=== PATIENT | male | born 1940 | race Caucasian/White ===

== ENCOUNTER 2019-04-30 21:38 | Inpatient (IN) ==
[2019-04-30 22:04] LABS: BASO# 0.02 X1000 (0.0-0.2); BASO% 0.4 % (0.0-0.8); EOS% 2.1 % (0.0-10.0); HEMATOCRIT 39.1 % (42.0-52.0); HEMOGLOBIN 12.7 g/dL (14.0-18.0); IMM GRAN# 0.02 X1000 (0.0-0.04); IMM GRAN% 0.4 % (0.0-0.5); LYMPH# 1.16 X1000 (1.2-3.4); LYMPH% 24.6 % (20.5-51.1); MCH 29.3 PG (27-31); MCHC 32.5 g/dL (33-37); MCV 90.1 FL (81-99); MONO# 0.56 X1000 (0.11-0.59); MONO% 11.9 % (1.7-9.3); MPV 10.1 FL (7.4-10.4); NEUT# 2.86 X1000 (1.4-6.5); NEUT% 60.6 % (42.2-75.2); PLT 146 X1000 (130-400); RBC 4.34 XMIL (4.7-6.1); RDW 12.8 % (11.5-14.5); WBC 4.72 X1000 (4.8-10.8)
[2019-04-30] MEDS ORDERED: NS 1,000 ML IV ONE (22:22)
[2019-04-30] MEDS ORDERED: DILAUDID IV ONE ×2 (22:22→23:41)
[2019-04-30] MEDS ORDERED: ZOFRAN IV ONE (22:22)
[2019-04-30 22:23] LABS: AGAP 13; ALB/GLOB RATIO 1.3; ALBUMIN 3.4 g/dL (3.5-5.0); ALKALINE PHOSPHATASE 118 U/L (32-122); AMYLASE 94 U/L (20-200); BUN 9 mg/dL (8-22); CALCIUM 8.2 mg/dL (8.8-10.2); CHLORIDE 104 mmol/L (98-107); COSMO 279; ESTIMATED GFR > 60; GLUCOSE 123 mg/dL (70-104); GOT 47 U/L (10-34); GPT 87 U/L (10-44); LIPASE 51 U/L (13-60); POTASSIUM 3.7 mmol/L (3.5-5.1); SODIUM 140 mmol/L (136-145); TCO2 23 mmol/L (25-35)
--- NOTE | 2019-05-01 00:11 | PROVIDER DOCUMENTATION ---
This chart was entered by Gaye Verdin Scribe, acting as scribe for Tor Crook MD. HPI-Abdominal Pain/GI Problem - General Chief Complaint: Abdominal Pain Stated Complaint: GALL BLADDER ISSUES, VOMITING Time Seen by Provider: 04/30/19 22:05 Source: patient, family Allergies/Adverse Reactions: Patient Allergies Allergy/AdvReac Type Severity Reaction Status Date / Time No Known Allergies Allergy Verified 04/30/19 22:19 Home Medications: Home Medication List Medication Instructions Recorded Confirmed Last Taken Type Alprazolam [Xanax] 0.25 mg PO BID 06/09/12 04/30/19 06/12/12 History Omeprazole [Prilosec] 40 mg PO DAILY@0700 06/09/12 04/30/19 03/14/16 History LISINOpril [Prinivil] 20 mg PO DAILY 03/14/16 04/30/19 03/14/16 History Oxybutynin [Ditropan] 5 mg PO DAILY 03/14/16 04/30/19 03/14/16 History Simvastatin 20 mg PO QHS 03/14/16 04/30/19 03/14/16 History Ergocalciferol (Vitamin D2) 400 unit PO DAILY 03/15/16 04/30/19 Unknown History [Vitamin D] Amoxicillin 875 mg PO BID 04/30/19 04/30/19 Unknown History Metoprolol Tartrate 25 mg PO BID 04/30/19 04/30/19 Unknown History Sucralfate 1 gm PO AC + HS 04/30/19 04/30/19 Unknown History - History of Present Illness-ABD Nature of Presenting Problems: pt is a 79 yr old male presenting with severe RUQ, epigastric pain, nausea and vomiting, pt was discharged from [facility] today, pt dx with gall stones and pancreatitis 4 days ago. pt admits pain had improved prior to discharge today but after returning home pain worsened again. pt denies any other complains. Abdominal Pain Onset Location: reports: RUQ Pain Radiation: reports: epigastric, back Quality of Pain: reports: cramping, sharp, throbbing Severity in ED: reports: severe Onset/Duration: reports: this afternoon Timing: reports: changing over time, getting worse Activities at Onset: reports: light activity, rest Exposure to sick contacts?: No Modifying Factors: improves with: nothing Associated Symptoms: reports: nausea, vomiting. denies: back/neck pain, chest pain, constipation, diarrhea, fever/chills, genitourinary problems, shortness of breath Last BM: unsure Dark Stools Present?: reports: none noticed Rectal Bleeding: reports: none Rectal Pain: reports: none Bruising or Bleeding Gums?: No Similar Symptoms Previously?: Yes Recently seen or treated by another doctor?: Yes Review of Systems - Adult - REVIEW OF SYSTEMS - ADULT Constitutional: reports: fatique. denies: chills, fever Eyes: reports: no symptoms reported Ears, Nose, Mouth & Throat: reports: no symptoms reported Cardiovascular: denies: chest pain, palpitations, syncope Respiratory: denies: cough, shortness of breath Gastrointestinal: reports: abdominal pain, nausea, poor appetite, vomiting. denies: constipation, diarrhea Genitourinary: denies: dysuria, frequency, flank pain Musculoskeletal: denies: back pain, joint pain, neck pain Integumentary: reports: no symptoms reported Neurological: denies: dizziness/vertigo, headache/migraines Psychiatric: reports: no symptoms reported Endocrine: reports: no symptoms reported Hematologic/Lymphatic: reports: no symptoms reported Allergic/Immunologic: reports: no symptoms reported All Other Systems: Reviewed and Negative Past History - Adult - PAST MEDICAL HISTORY-ADULT Review of Records: reports: Old Records Reviewed, Nursing Assessment Review, Medications Reviewed, Social history reviewed & non-contributory. Major Childhood Illnesses: reports: denies history Cardiovascular: reports: HTN, hyperlipidemia Respiratory: reports: denies history Gastrointestinal: reports: GERD Obstetrical/Gynecological: reports: denies history Genitourinary: reports: denies history Musculoskeletal: reports: denies history Neurological: reports: denies history Endocrine/Immune: reports: denies history Other Conditions: reports: denies history - IMMUNIZATION STATUS Childhood Immunizations: See Nurse Assessment Flu Vaccine: See Nurse Assessment - FAMILY HISTORY Family History: reviewed, not pertinent - SOCIAL HISTORY Smoking: quit greater than 1 year Substance Use: denies Living Situation: family Physical Exam-General - PHYSICAL EXAM-ADULT Initial Vital Signs Reviewed: Yes - CONSTITUTIONAL General Appearance: alert, moderate distress - EYES Eyes: PERRL/EOMI - HEAD, EARS, NOSE, MOUTH & THROAT HENMT: normocephalic/atraumatic, other (dry oral mucosa) - NECK Neck: non-tender, full range of motion, supple, normal inspection - RESPIRATORY Respiratory: lungs clear, normal breath sounds - CARDIOVASCULAR Cardiovascular: normal peripheral pulses, regular rate, rhythm - GASTROINTESTINAL (ABDOMEN) Abdominal Exam: normal bowel sounds, soft, tenderness (RUQ, epigastric tenderness), Mario's sign - LYMPHATIC Lymphatic: no adenopathy - MUSCULOSKELETAL Back Exam: no CVA tenderness, no vertebral tenderness Extremity: normal range of motion, non-tender, normal inspection - SKIN Integumentary: normal color, warm/dry, pallor - NEUROLOGIC Neurologic: grossly normal, no motor/sensory deficits Progress - PLAN OF CARE/RESULTS Progress/Plan/Lab Results: Vital Signs - 8 hr 04/30/19 21:48 Temperature 97.6 F Pulse Rate 62 Respiratory Rate 18 Blood Pressure 160/65 O2 Sat by Pulse Oximetry 97 Orders Category Date Time Status Saline Loc DIRECTED Care 04/30/19 21:53 Active NPO Diet 04/30/19 21:53 Active AMYLASE [CHEM] Stat Lab 04/30/19 21:55 Received CBC WITH ELECTRONIC DIFF [HEME] Stat Lab 04/30/19 21:54 Ordered COMPREHENSIVE METABOLIC PANEL [CHEM] Stat Lab 04/30/19 21:55 Received LIPASE [CHEM] Stat Lab 04/30/19 21:55 Received URINALYSIS W/POSS RFLX CULT [URINALYSIS] Stat Lab 04/30/19 21:53 Uncollected Result Diagrams: 04/30/19 22:21 04/30/19 21:55 Departure - Departure Date of Disposition Decision: 05/01/19 Time of Disposition Decision: 00:11 DIAGNOSIS: Biliary colic Disposition: HOME 01 Certified Medical Emergency: Emergent Condition: Stable Referrals and Follow-Ups: Jake Dubois [Primary Care Provider] - - Critical Care Note This patient required my direct & personal management of CC.: No Attestation - Physician/ JAZMÍN Attestation Patient care was provided by Advanced Practice Provider:: No The physician spent face to face time with patient:: Yes Advanced Practice Provider documentation review:: Supervising physician onsite and consulted in the evaluation and care of this patient. The physician did have a face to face encounter with the patient. This chart was documented by the kristyn scribe, (Gaye Verdin Scribe) and accurately reflects the services I performed and decisions made by me, Tor Crook MD, as attested by the provider's signature.
[2019-05-01] MEDS ORDERED: ZOFRAN IV PRN (00:49)
[2019-05-01] MEDS ORDERED: NS 1,000 ML IV SCH (00:49)
[2019-05-01] MEDS: DILAUDID IV PRN ×4 (02:53→16:36)
--- NOTE | 2019-05-01 04:00 | HISTORY AND PHYSICAL ---
CHIEF COMPLAINT: Abdominal pain, nausea, vomiting. HISTORY OF PRESENT ILLNESS: This is a 79-year-old male who comes in having been discharged from [facility] around noon today. He was diagnosed with pancreatitis and gallstones. I believe he was treated for around four days. Stated that around 5:00 he started having nausea and vomiting and increased right upper quadrant pain that extends over into his epigastric area. Stated it was a cramping, sharp, throbbing pain that radiated to his back. Nothing made it better. He denied any other problems. A CT scan has been ordered here but has not been obtained. The ER provider did get reports from [facility] that did mention gallstones and pancreatitis but no mention of cholecystitis; however, he was discharged to home on amoxicillin. Will start the patient on Zosyn. He will be admitted for a surgical consultation, further evaluation and treatment. PAST MEDICAL HISTORY: Prostate cancer, status post prostatectomy, hypertension, hyperlipidemia, GERD, essential tremor. PREVIOUS SURGICAL HISTORY: Prostatectomy. SOCIAL HISTORY: No tobacco, alcohol or illicit drugs. He was a former smoker. ALLERGIES: No known drug allergies. HOME MEDICATIONS: Amoxicillin 875 mg p.o. b.i.d., Xanax 0.25 mg p.o. b.i.d., vitamin D2 400 units p.o. daily, lisinopril 20 mg p.o. daily, metoprolol 25 mg p.o. b.i.d., omeprazole 40 mg p.o. daily, Ditropan 5 mg p.o. daily, simvastatin 20 mg p.o. nightly, Carafate 1 gram AC and nightly. REVIEW OF SYSTEMS: Fourteen-point review of systems conducted with the patient. Pertinent positives listed above in the HPI. All other systems reviewed and found to be negative. PHYSICAL EXAMINATION: VITAL SIGNS: Temperature 97.6, pulse 62, respirations 18, blood pressure 160/65, oxygen saturation 100% on room air. GENERAL: A 79-year-old male lying in the ER stretcher. Still has complaint of pain but is in no acute distress. HEENT: Head is atraumatic, normocephalic. Pupils equal, round, reactive to light. Extraocular eye movement is intact. Sclera is anicteric. Conjunctiva is pink. Oral mucosa is dry. NECK: Supple. No JVD. No thyromegaly. Trachea is midline. No cervical lymphadenopathy. CARDIAC: S1, S2 appreciated. No murmurs, gallops, rubs. LUNGS: Clear to auscultation bilaterally. No rhonchi, wheezes, rales. Symmetric rise and fall with respirations. ABDOMEN: Soft, nondistended, tender epigastric and right upper quadrant. Positive Mario's sign. No rebound tenderness. Bowel sounds present all 4 quadrants, normoactive. No pulsatile mass. No organomegaly. EXTREMITIES: No clubbing, cyanosis or edema. Two-plus pedal pulse bilaterally. GENITOURINARY: No bladder distention. Patient voids. Otherwise deferred. NEUROLOGICAL: Alert and oriented times 3. Cranial nerves 2 through 12 grossly intact. DIAGNOSTIC DATA: CT scan of the abdomen is pending. LABORATORY DATA: WBC 4.72. Hemoglobin 12.7. Hematocrit 39.1. Platelet count 146. Sodium 140. Potassium 3.7. Chloride 104. Carbon dioxide 23. BUN 9. Creatinine 1. Glucose 123. Total bilirubin is 1.20. AST 47. ALT 87. Amylase 94. Lipase 51. ASSESSMENT AND PLAN: 1. Cholelithiasis with questionable cholecystitis. Will consult Surgery. Hold patient NPO except for medicines. Will start patient on Zosyn since he was sent home with antibiotics. These can be stopped pending follow-up with CT scan tomorrow by primary team and Surgery. 2. Hypertension. Continue home medications. 3. Hyperlipidemia. Continue home medications. 4. Nausea, vomiting and abdominal pain. This is secondary to number 1. Will give Zofran and Dilaudid. Further recommendations per patient clinical course. Dictated by ASHLEY Silva for Kali Aquino MD cc: ASHLEY Silva MD
[2019-05-01] MEDS: ZOSYN 3.375 GM in NS 50 ML IV SCH ×4 (04:34→20:21)
[2019-05-01] MEDS: PRILOSEC PO SCH (06:15)
[2019-05-01] MEDS: CARAFATE PO SCH ×4 (06:15→20:21)
[2019-05-01 06:32] LABS: URINE SOURCE CLEAN CATCH
[2019-05-01 06:33] LABS: UR EPITHELIAL CELLS <10 /HPF (<10); URINE BACTERIA NEGATIVE /HPF; URINE RBC <10 /HPF (<10); URINE WBC <10 /HPF (<10)
[2019-05-01 06:35] LABS: BILIRUBIN URINE NEGATIVE (NEGATIVE); BLOOD URINE NEGATIVE (NEGATIVE); COLOR YELLOW; GLUCOSE URINE NEGATIVE (NEGATIVE); KETONE URINE 60 mg/dL (NEGATIVE); LEUKOCYTES URINE NEGATIVE (NEGATIVE); NITRITE URINE NEGATIVE (NEGATIVE); PH URINE 5.5; PROTEIN URINE TRACE mg/dL (NEGATIVE); SP GRAVITY URINE 1.021; TURBIDITY URINE CLEAR (CLEAR); UROBILINOGEN URINE NORMAL (NORMAL)
[2019-05-01] MEDS: VITAMIN D PO SCH (08:53)
[2019-05-01] MEDS: LOPRESSOR PO SCH ×2 (08:53→20:21)
[2019-05-01] MEDS: XANAX PO SCH ×2 (08:53→20:21)
[2019-05-01] MEDS: DITROPAN PO SCH (08:53)
[2019-05-01] MEDS ORDERED: PRINIVIL PO SCH (09:00)
--- NOTE | 2019-05-01 10:42 | GENERAL SURGERY CONSULTATION ---
DATE: 05/01/2019 REQUESTING PHYSICIAN: Hospitalist. REASON FOR CONSULTATION: Consult is concerning cholecystitis. HISTORY OF PRESENT ILLNESS: A 79-year-old gentleman who was initially at [facility] and treated with cholecystitis and possible pancreatitis. He had been treated at [facility] for several days and was discharged. He came here with continued pain. He has been admitted. He is still reporting pain. He was evaluated, and had a CT scan and an ultrasound which I cannot view the images but the report of the ultrasound shows cholelithiasis with thickened gallbladder wall, consistent with cholecystitis. A CT scan showed possible pancreatitis and inflammatory stranding around the second portion of the duodenum with possible cholecystitis. He has been readmitted over here and started on IV antibiotics. He is still complaining of pain with epigastric and right upper quadrant pain but is feeling a little bit better. PAST MEDICAL HISTORY: Includes: 1. Prostate cancer. 2. Hypertension. 3. Hyperlipidemia. 4. Gastroesophageal reflux. 5. Essential tremor. PAST SURGICAL HISTORY: Includes open prostatectomy. ALLERGIES: None. MEDICATIONS: Home medications reviewed. Current medications reviewed. He is on antibiotics. SOCIAL HISTORY: No alcohol, tobacco, or illicit drugs. Former smoker. FAMILY HISTORY: Reviewed with patient and noncontributory. REVIEW OF SYSTEMS: A full 14 systems were reviewed and are negative except as specified in the HPI. PHYSICAL EXAMINATION: Vital Signs: The patient is currently afebrile. Vital signs are stable. General Examination: No acute distress. male, looks stated age. HEENT: Normocephalic, atraumatic. Pupils equal, round, reactive to light. Mucous membranes moist. Oropharynx benign. Neck: Supple. Trachea midline. Cardiovascular: Regular rate and rhythm. Lungs: Grossly clear. Abdomen: Soft. Some tenderness in the epigastric and right upper quadrant pain. No peritoneal signs. Extremities: Moves all extremities. Neurologic: Grossly intact but he does have an essential tremor. Skin: No signs of jaundice. Vascular: All extremities perfused. LABORATORY: White blood count is 4, hematocrit is 39. Bilirubin is 1.2. AST and ALT are slightly elevated. Alkaline phosphatase is normal. Amylase and lipase are normal. [facility]. ASSESSMENT AND PLAN: A 79-year-old gentleman with possible cholecystitis. Possible cholecystitis. At this time, discussed with the patient possible cholecystectomy in the morning. Discussed with him the risks, benefits, and alternatives to the procedure with risks including but not limited to bleeding, infection, risk of anesthesia, risk of common bile duct injury, and bile leak. We will keep him on antibiotics and plan for surgical intervention tomorrow. If he does not seem to have improvement with this, he may need an esophagogastroduodenoscopy. cc: Tye Fernando MD
[2019-05-01] MEDS ORDERED: TYLENOL PO PRN (16:18)
[2019-05-01] MEDS ORDERED: OFIRMEV 1000 MG/ISOTONIC SOLN 1,000 MG/100 ML BOTTLE IV PRN (17:29)
--- NOTE | 2019-05-01 17:54 | Diag Imaging Result Doc PS360 ---
EXAM: CHEST-PORTABLE - 05/01/2019 HISTORY: SOB TECHNIQUE: Portable chest COMPARISON: 03/14/2016 FINDINGS: Heart size is within normal limits. There is apparent mild infiltrate or edema at the left upper lobe. The right lung appears essentially clear. There is an apparent small left pleural effusion. There is no evidence of pneumothorax. IMPRESSION: Mild left upper lobe infiltrate or edema. Small left pleural effusion. Electronically signed by Jonh Marshall 05/01/2019 5:51 PM
--- NOTE | 2019-05-01 18:40 | Diag Imaging Result Doc PS360 ---
EXAM: CT ABD/PELVIS W/IV CONT ONLY - 05/01/2019 HISTORY: acute abdomen TECHNIQUE: CT abdomen/pelvis with intravenous contrast COMPARISON: 04/27/[address] abdomen/pelvis from [facility] FINDINGS: There has been development of bilateral pleural effusions with adjacent dependent atelectasis. There are small gallstones in the gallbladder neck similar to prior. The gallbladder is moderately distended is more distended compared to prior. The gallbladder shelby appear mildly thickened. There is a small amount of pericholecystic fluid. There is a small amount of free fluid adjacent to the inferior right lobe of liver. The possibility of acute cholecystitis cannot be excluded. The pancreas is atrophic. There is no pancreatic mass or inflammation identified. There is no liver or splenic lesion identified. The bilateral kidneys enhance homogeneously. There is no hydronephrosis. There is no evidence of adrenal mass. There are no substantial enlarged lymph nodes identified. There is an apparent diverticulum arising at the descending duodenum similar to prior. There is no discrete inflammation identified which appears to arise at the duodenal diverticulum. There is no evidence of bowel obstruction. There is mild colonic diverticulosis. There is no indication of diverticulitis. There is no free air or abscess identified. There is a small amount of free fluid in the pelvis. There has been prior prostatectomy. IMPRESSION: Gallstones in gallbladder neck, moderately distended gallbladder, and small amount of pericholecystic fluid. The possibility of acute cholecystitis cannot be excluded. Diverticulum arising at the descending duodenum. No discrete associated diverticulitis. Small amount of free fluid in abdomen and pelvis. No evidence of free air. Bilateral pleural effusions. This exam was performed using automated exposure control, adjustment of mA or kV according to patient size, and/or use of iterative reconstruction technique. Electronically signed by Jonh Marshall 05/01/2019 6:37 PM
[2019-05-01 19:05] LABS: URINE SOURCE CLEAN CATCH
--- NOTE | 2019-05-01 19:14 | PROGRESS NOTE ---
DATE: 05/01/2019 SUBJECTIVE: Today Mr. Buchanan was actually shaking. Early on, I was called to be notified that his temperature was high of 100.4. When I came to evaluate him, he said was doing fair, but he was very cold. He was under multiple blankets. was at the bedside. OBJECTIVE: Vital signs: Blood pressure 144/69, pulse of 79, respirations 16, temperature is 100.4 degrees. General: Mr. Buchanan is a 79-year-old gentleman. He was in bed. HEENT: Mucosa is pink and moist. Anicteric. Acyanotic. Neck: Supple. Chest: Good air entry bilateral, seems to have some mild end expiratory wheezing bilateral. Cardiovascular: Regular rate and rhythm. Abdomen: Soft, remarkably tender in the right upper quadrant with some guarding, but no rebound. Bowel sounds present. Extremities: No pedal edema. IRONER: Patient is awake, alert, and oriented. LABORATORY DATA: None for this morning. ASSESSMENT: 1. Presumably acute cholecystitis. 2. Acute pancreatitis due to gallbladder disease. 3. Fever with obvious chills concerning for bacteremia. We will get blood cultures done stat. We will also notify surgery. 4. Biliary colic. cc: Eder Ramos MD
[2019-05-01 19:24] LABS: BLOOD URINE NEGATIVE (NEGATIVE); COLOR YELLOW; GLUCOSE URINE NEGATIVE (NEGATIVE); KETONE URINE TRACE mg/dL (NEGATIVE); LEUKOCYTES URINE NEGATIVE (NEGATIVE); NITRITE URINE NEGATIVE (NEGATIVE); TURBIDITY URINE CLEAR (CLEAR); UROBILINOGEN URINE NORMAL (NORMAL)
[2019-05-01 19:38] LABS: BILIRUBIN URINE NEGATIVE (NEGATIVE); PROTEIN URINE 30 mg/dL (NEGATIVE); UR EPITHELIAL CELLS <10 /HPF (<10); URINE BACTERIA NEGATIVE /HPF; URINE WBC <10 /HPF (<10)
[2019-05-01 19:43] LABS: SP GRAVITY URINE 1.025
[2019-05-01] MEDS: ZOCOR PO SCH (20:21)
[2019-05-01 20:57] LABS: INR 1.27; PROTIME 16.2 Seconds (11.0-16.0)
[2019-05-01 20:58] LABS: EOS# 0.01 X1000 (0.0-0.7); EOS% 0.6 % (0.0-10.0); HEMATOCRIT 38.1 % (42.0-52.0); HEMOGLOBIN 12.4 g/dL (14.0-18.0); IMM GRAN# 0.05 X1000 (0.0-0.04); IMM GRAN% 3.2 % (0.0-0.5); LYMPH# 0.11 X1000 (1.2-3.4); LYMPH% 7.1 % (20.5-51.1); MCH 29.7 PG (27-31); MCHC 32.5 g/dL (33-37); MCV 91.1 FL (81-99); MONO# 0.02 X1000 (0.11-0.59); MONO% 1.3 % (1.7-9.3); MPV 10.1 FL (7.4-10.4); NEUT# 1.37 X1000 (1.4-6.5); NEUT% 87.8 % (42.2-75.2); PLT 95 X1000 (130-400); PTT 28.8 Seconds (22.3-41.8); RBC 4.18 XMIL (4.7-6.1); WBC 1.56 X1000 (4.8-10.8)
[2019-05-01 21:13] LABS: BANDS 20 % (0-1); LYMPHS 2 % (21-51); SEGS 78 % (42-75)
[2019-05-01 21:15] LABS: C REACTIVE PROT QUANT 122.15 mg/L (0.00-5.00)
[2019-05-01] MEDS ORDERED: VANCOMYCIN IV PER PHARMACY MISC SCH (21:30)
[2019-05-01] MEDS ORDERED: NS 1,000 ML IV ONE ×2 (21:32→21:37)
[2019-05-01 21:41] LABS: AGAP 16; ALB/GLOB RATIO 1.4; ALBUMIN 3.1 g/dL (3.5-5.0); ALKALINE PHOSPHATASE 137 U/L (32-122); BUN 12 mg/dL (8-22); CHLORIDE 101 mmol/L (98-107); COSMO 274; ESTIMATED GFR > 60; GLUCOSE 102 mg/dL (70-104); GOT 63 U/L (10-34); GPT 86 U/L (10-44); POTASSIUM 3.6 mmol/L (3.5-5.1); SODIUM 137 mmol/L (136-145); TCO2 20 mmol/L (25-35); TOTAL BILIRUBIN 3.85 mg/dL (0.20-1.00); TOTAL PROTEIN 5.3 g/dL (6.3-8.3)
[2019-05-01 21:58] LABS: AGAP 16; BUN 12 mg/dL (8-22); CHLORIDE 101 mmol/L (98-107); COSMO 275; ESTIMATED GFR > 60; GLUCOSE 94 mg/dL (70-104); POTASSIUM 3.6 mmol/L (3.5-5.1); SODIUM 138 mmol/L (136-145); TCO2 21 mmol/L (25-35)
[2019-05-01] MEDS ORDERED: VANCOMYCIN 1,700 MG in NS 250 ML IV ONE (23:00)
--- NOTE | 2019-05-02 00:09 | EKG Report ---
Test Performed on : 05/01/2019 10:35:44 PM Test Reason : elevated trops Blood Pressure : / mmHG Vent. Rate : 110 BPM Atrial Rate : 110 BPM P-R Int : 130 ms QRS Dur : 070 ms QT Int : 344 ms P-R-T Axes : 044 -18 048 degrees QTc Int : 465 ms Sinus tachycardia. Septal infarct , age undetermined Abnormal ECG When compared with ECG of 15-MAR-2016 17:10, Septal infarct is now present Non-specific change in ST segment in Anterior leads Nonspecific T wave abnormality now evident in Anterior leads Confirmed by Manpreet MITCHELL, Rachid Napoles ([id number]) on 05/03/2019 10:19:16 AM
[2019-05-02] MEDS ORDERED: LEVOPHED 8 MG in D5 1/2 NS 250 ML IV SCH (02:44)
[2019-05-02 03:08] LABS: BASO# 0.01 X1000 (0.0-0.2); BASO% 0.1 % (0.0-0.8); EOS# 0.02 X1000 (0.0-0.7); EOS% 0.2 % (0.0-10.0); HEMATOCRIT 35.3 % (42.0-52.0); IMM GRAN# 0.98 X1000 (0.0-0.04); LYMPH# 0.22 X1000 (1.2-3.4); LYMPH% 2.2 % (20.5-51.1); MCH 28.7 PG (27-31); MCHC 31.2 g/dL (33-37); MCV 92.2 FL (81-99); MONO# 0.29 X1000 (0.11-0.59); MPV 10.4 FL (7.4-10.4); NEUT# 8.26 X1000 (1.4-6.5); NEUT% 84.5 % (42.2-75.2); PLT 87 X1000 (130-400); RBC 3.83 XMIL (4.7-6.1); RDW 13.1 % (11.5-14.5); WBC 9.78 X1000 (4.8-10.8)
[2019-05-02] MEDS: ZOSYN 3.375 GM in NS 50 ML IV SCH (03:18)
[2019-05-02] MEDS: DILAUDID IV PRN ×4 (03:22→21:57)
[2019-05-02 03:35] LABS: INR 1.4; PROTIME 17.4 Seconds (11.0-16.0)
[2019-05-02 03:36] LABS: PTT 32.3 Seconds (22.3-41.8)
[2019-05-02 03:39] LABS: ALB/GLOB RATIO 0.9; ALBUMIN 2.3 g/dL (3.5-5.0); CALCIUM 7.5 mg/dL (8.8-10.2); CREATININE 1.2 mg/dL (0.7-1.2); POTASSIUM 3.4 mmol/L (3.5-5.1); TOTAL BILIRUBIN 3.93 mg/dL (0.20-1.00)
--- NOTE | 2019-05-02 07:03 | Diag Imaging Result Doc PS360 ---
EXAM: CT ANGIOGRM PULMONARY ARTERIES 05/01/2019 HISTORY: rule out PE - verbal order changed per Jake Martínez to CTA PULM TECHNIQUE: This exam was performed using automated exposure control, adjustment of mA or kV according to patient size, and/or use of iterative reconstruction technique. COMMENT: 3-D MIPS were performed. The current study is compared with the previous noncontrast study of 03/23/2016. There is some motion artifact. There are no filling defects in the pulmonary arteries. The aorta is not distended and there is no evidence of dissection. There are some coronary calcifications. There are bilateral pleural effusions. Changes in the abdomen including acute cholecystitis have been previously discussed on the abdominal study of this date. There is no evidence of significant adenopathy. There is some increased interstitial opacity particularly in the right upper lobe which was not present at the time the previous study. There are patchy groundglass opacities in the left upper lobe and there is some compressive atelectasis in the lower lobes bilaterally. None of these findings were present previously. IMPRESSION: Bilateral pleural effusions. Pulmonary edema and/or pneumonia. Electronically signed by Saad Cerda 05/02/2019 7:01 AM
[2019-05-02] MEDS ORDERED: NS 1,000 ML ONE (07:13)
--- NOTE | 2019-05-02 07:17 | Diag Imaging Result Doc PS360 ---
EXAM: CHEST-PORTABLE INDICATION: dyspnea TECHNIQUE: One view COMPARISON: 05/01/2019 FINDINGS: Bilateral increased interstitial markings suggesting edema as well as pulmonary venous congestion are stable to marginally worse. No new consolidation is identified. Cardiac silhouette is stable. IMPRESSION: Stable to marginal worsening of pulmonary edema. Electronically signed by Gucci Johnson 05/02/2019 7:15 AM
[2019-05-02] MEDS ORDERED: MERREM 1 GM in NS 50 ML IV SCH (08:30)
[2019-05-02] MEDS: CARAFATE PO SCH ×4 (08:36→21:55)
[2019-05-02] MEDS: PRILOSEC PO SCH (08:37)
--- NOTE | 2019-05-02 08:41 | EKG Report ---
Test Performed on : 05/02/2019 07:31:29 AM Test Reason : preop/CAD Blood Pressure : / mmHG Vent. Rate : 092 BPM Atrial Rate : 092 BPM P-R Int : 142 ms QRS Dur : 066 ms QT Int : 368 ms P-R-T Axes : 041 -11 009 degrees QTc Int : 455 ms Normal sinus rhythm. Inferior infarct , age undetermined Abnormal ECG No previous ECGs available Confirmed by Manpreet MITCHELL, Rachid Napoles ([id number]) on 05/03/2019 10:19:45 AM
--- NOTE | 2019-05-02 08:46 | EKG Report ---
Test Performed on : 05/02/2019 07:32:09 AM Test Reason : REPEAT Blood Pressure : / mmHG Vent. Rate : 091 BPM Atrial Rate : 091 BPM P-R Int : 128 ms QRS Dur : 076 ms QT Int : 388 ms P-R-T Axes : 035 -08 044 degrees QTc Int : 477 ms Sinus rhythm. with premature supraventricular complexes. Otherwise normal ECG When compared with ECG of 02-MAY-2019 07:31, (Unconfirmed) premature supraventricular complexes. are now present Confirmed by Manpreet MITCHELL, Rachid Napoles ([id number]) on 05/03/2019 10:19:47 AM
[2019-05-02] MEDS: DITROPAN PO SCH (09:12)
[2019-05-02] MEDS: VITAMIN D PO SCH (09:12)
[2019-05-02] MEDS: XANAX PO SCH ×2 (09:13→21:56)
[2019-05-02 10:18] LABS: CK INDEX 7.3 (0.0-2.5); CK-MB 24.32 ng/mL (0.0-5.0)
[2019-05-02] MEDS: LOPRESSOR PO SCH ×2 (10:57→21:55)
[2019-05-02 11:36] LABS: URINE SOURCE CATH
[2019-05-02 11:40] LABS: BILIRUBIN URINE MODERATE (NEGATIVE); BLOOD URINE TRACE (NEGATIVE); COLOR YELLOW; GLUCOSE URINE NEGATIVE (NEGATIVE); KETONE URINE TRACE mg/dL (NEGATIVE); LEUKOCYTES URINE NEGATIVE (NEGATIVE); NITRITE URINE NEGATIVE (NEGATIVE); PH URINE 6.5; PROTEIN URINE 50 mg/dL (NEGATIVE); TURBIDITY URINE CLEAR (CLEAR); UROBILINOGEN URINE 2 mg/dL (NORMAL)
[2019-05-02 11:52] LABS: UR EPITHELIAL CELLS <10 /HPF (<10); URINE BACTERIA NEGATIVE /HPF; URINE RBC <10 /HPF (<10); URINE WBC <10 /HPF (<10)
[2019-05-02 11:53] LABS: URINE YEAST NONE SEEN
[2019-05-02 12:03] LABS: SP GRAVITY URINE 1.015
--- NOTE | 2019-05-02 12:38 | GENERAL SURGERY PROGRESS NOTE ---
DATE: 05/02/2019 SUBJECTIVE: The patient had a rough evening. He had issues with chills and a fever, and was brought down to the ICU. He had a repeat CT scan of his abdomen that showed the possibility of acute cholecystitis. The bowel itself appeared to be okay. He still had issues with blood pressure, and also with his troponin going up. OBJECTIVE: Vital Signs: The patient's current temperature is 99.6 degrees, pulse 108, blood pressure 99/62, O2 saturation 93%. General: Alert and interactive, male, looks stated age. HEENT: Normocephalic, atraumatic. Pupils equal, round, reactive to light. Mucous membranes moist. Oropharynx benign. Neck: Supple. Trachea midline. Cardiovascular: Some mild tachycardia. Lungs: Grossly clear. Abdomen: Soft. Some discomfort, right upper quadrant/epigastric, but no peritoneal signs. Extremities: Moves all extremities. Neurologic: Essential tremor noted. Vascular: All extremities perfused. IMAGING AND LABORATORY DATA: White blood count 9 (it was, at one point, 1), hematocrit 35, platelet count 87,000. INR 1.40. Bilirubin is 3.93, AST 183, ALT 148, alkaline phosphatase 96. Last troponin 0.718. Lactic acid 2.8. CT scan of the abdomen reviewed, and radiology report reviewed. CT angiogram of the chest images reviewed, but official report pending. ASSESSMENT AND PLAN: A 79-year-old gentleman with abdominal pain and decline in overall clinical status. 1. Decline in overall clinical status. At this time, he has had a decrease in his blood pressures, heart rate has gone up, and his troponin has gone up. He does have an increase in his lactic acid, although it has trended down since it was initially elevated. His labs seem to suggest a hepatic injury versus more so than a cholestatic pattern with his bilirubin, AST, and ALT being elevated, but his alkaline phosphatase being normal. I would like to see what the hospitalists think about his overall clinical status prior to any kind of surgical intervention. Would like to get Cardiology's input, and we await the results of the CT angiogram. 2. Cholecystitis. At this time, I do have him on the schedule for this afternoon for a cholecystectomy. He is on antibiotics, but at this point, will put it on hold until I can discuss further with the hospitalist this morning. cc: Tye Fernando MD
[2019-05-02] MEDS ORDERED: XYLOCAINE-MPF 2% ONE (12:58)
[2019-05-02] MEDS ORDERED: AMIDATE ONE (12:58)
[2019-05-02] MEDS ORDERED: QUELICIN (DOSE) ONE (13:05)
--- NOTE | 2019-05-02 13:11 | PROGRESS NOTE ---
DATE: 05/02/2019 SUBJECTIVE: This morning Mr. Buchanan is seen in the ICU. He was apparently transferred from the floor early this morning because he was extremely hypotensive and septic. The , a daughter, and a [id number] were all at the bedside at the time of the encounter. A granddaughter was also there. Mr. Buchanan, himself, thinks that he is doing well, but he is extremely drowsy and lethargic. He continues to have abdominal pain. OBJECTIVE: Vital Signs: Blood pressure is 94/56, pulse of 107, respirations 28, temperature 98.1 degrees, patient is saturating 96%. General: Mr. Buchanan is a 79-year-old gentleman. He is in bed. He does not seems to be in any cardiopulmonary distress. HEENT: Mucosa is pink and slightly dry. Anicteric. Acyanotic. Neck: Supple. Chest: Air entry is bilaterally reduced with a few crackles in the posterior lung christine. Cardiovascular: Tachycardic, but no murmurs and no rubs. Gastrointestinal: The abdomen is soft, distended. There is tenderness in the right upper quadrant with guarding. No rebound. Bowel sounds present. Extremities: No pedal edema. Central Nervous System: Patient is lethargic, but easily arousable. Follows basic commands. He seems to be hallucinating as well. LABORATORY DATA: WBC is 9.78, hemoglobin is 11, platelet count of 87,000. Chemistry is also reviewed. LFTs seems to be trending up. Troponin is 1036. C-reactive protein is remarkably elevated. A chest x-ray this morning shows marginal worsening of pulmonary edema. ASSESSMENT: 1. Septic shock associated with gram-negative christopher bacteremia. We are still pending the identification and sensitivity. Also complicated with altered mental status, transaminitis, and type 2 myocardial infarction. 2. Acute cholecystitis. We think this is the source of the gram-negative christopher bacteremia. The patient is currently on antibiotics. Infectious Disease has been consulted, and Surgery is pending final recommendations for possible gallbladder removal today. 3. Troponin elevation. I have just spoken with Dr. Cage. He thinks the bedside echo EF is pretty normal and there was not any evidence of wall motion abnormality. From his standpoint, he thinks the patient should be okay to go for surgery, and he thinks that this is a demand mismatch type 2 myocardial infarction. 4. Pulmonary edema, most likely due to fluid due to fluid resuscitation. We will continue to keep an eye on this. The patient will continue needing fluid resuscitation. I think if it comes to the point where this is compromising his respiratory status, he will be intubated. SUMMARY AND PLAN: In general, I think Mr. Buchanan is critically sick. He is septic with gram- negative christopher bacteremia, presumably from the from the gallbladder infection associated with multi- organ dysfunction. He has done a bedside echocardiogram, and Dr. Cage tells me that the EF was fine and that he thinks the troponin elevation is all due to the demand mismatch. EKG is unremarkable for any ST- or T-waves abnormalities. We recommend surgery to proceed, and I have explained the risks to the family members, and they are willing and okay with surgery to proceed as well. Mr. Buchanan himself is aware, and he is also okay for surgery to proceed. cc: Eder Ramos MD critical time 45 minutes [facility]
[2019-05-02] MEDS ORDERED: NORCURON ONE ×2 (13:25→17:23)
[2019-05-02] MEDS ORDERED: SODIUM CHLORIDE 0.9% 10 ML ONE (13:25)
[2019-05-02] MEDS ORDERED: ALBUMIN 25% ONE (13:30)
[2019-05-02] MEDS ORDERED: BRIDION ONE (13:43)
[2019-05-02] MEDS ORDERED: SENSORCAINE-MPF 0.5%/EPI 1:200,000 ONE (13:51)
[2019-05-02] MEDS ORDERED: LR 1,000 ML ONE (13:51)
[2019-05-02] MEDS ORDERED: KETAMINE ONE (14:41)
[2019-05-02] MEDS ORDERED: DECADRON ONE (14:51)
[2019-05-02] MEDS ORDERED: VERSED ONE (15:02)
[2019-05-02] MEDS ORDERED: RECOTHROM ONE (15:10)
[2019-05-02] MEDS: SODIUM CHLORIDE 0.9% ONE ×2 (16:05→17:26)
--- NOTE | 2019-05-02 16:06 | CARDIOLOGY CONSULTATION ---
DATE: 05/02/2019 REQUESTING PHYSICIAN: Hospitalist service and Dr. Fernando, surgeon. REASON FOR CONSULTATION: Cardiac evaluation. CHIEF COMPLAINT: Abdominal pain, weakness, possibly sepsis. Vomiting. HISTORY: Mr. Buchanan presented to the emergency room on April 30 at about 10 p.m. complaining of recurrent epigastric pain, right upper quadrant pain, nausea, vomiting. The patient apparently had been admitted to the [facility] and they diagnosed cholecystitis with pancreatitis. The patient at the time of presentation showed a proBNP level of 9331 pg/mL. His AST, ALT have gone up from 47 and 87 to 183 and 148. His bilirubin also has gone up from 1.[address] scan of the abdomen indicates gallstones in the gallbladder neck, moderately distended gallbladder and a small amount of pericholecystic fluid. The patient is very weak. He denies having chest pains as such. In addition, his CT shows the presence of bilateral pleural effusion with adjacent dependent atelectasis. The patient's EKG done at the time of initial encounter at 2235 hours May 01 shows sinus tachycardia with a left anterior fascicular block and question of septal infarct. Subsequent EKG done at 7:32 a.m. today shows sinus rhythm, rate 91, left anterior fascicular block. There is no evidence of a scar. A bedside echocardiogram has been done under my supervision and it shows preservation of the left ventricular ejection fraction probably at the lower limits of normal 55% without clear-cut wall motion abnormality. PAST MEDICAL HISTORY: positive for moderate coronary artery disease. I have seen Mr. Buchanan at my office the last time on 11/17/2018. At that time, he appeared to be clinically stable. He had no specific complaints. He had gained some weight. He has a history of hypertension. Back in April 02, we did a CT of the coronary arteries that showed moderate coronary disease without any critical stenosis. He has a history of essential tremor, hyperlipidemia which is being treated. He has had also a remote diagnosis of lupus erythematosus. PAST SURGICAL HISTORY: Positive back surgery twice and eye surgery. SOCIAL HISTORY: He is . He is retired. He has grown-up children. FAMILY HISTORY: Positive for father having sudden . Brother with stents. A sister with coronary heart surgery. HOME MEDICATIONS: At the time of this admission included: 1. Xanax 0.5 mg twice a day. 2. Amoxicillin 875 twice a day. 3. Vitamin D 2 400 units daily. 4. Lisinopril 10 mg daily. 5. Metoprolol 25 mg twice a day. 6. Omeprazole 40 mg daily. 7. Ditropan 5 mg daily. 8. Simvastatin 10 mg at bedtime. 9. Sucralfate 1 g 4 times a day. ALLERGIES: Reported negative. REVIEW OF SYSTEMS: At this time is irrelevant. The patient has been admitted to the hospital recently with cholecystitis and pancreatitis and this has gotten worse. His cardiac status really had not changed prior to the onset of the cholecystitis related symptoms. PHYSICAL EXAMINATION: Vital signs: Blood pressure right now is 99/62, temperature 99.6 degrees, pulse 108, respirations 20. He appears to be acutely ill or toxic, tremulous, dehydrated. HEENT: Otherwise unremarkable. Chest: Diminished breath sounds at bases. Heart: Sounds regular rhythm. I do not hear gallop or murmur. Abdomen: Distended. Bowel sounds diminished. Some tenderness in the right upper quadrant. Extremities: Showed somewhat decreased pulses. No obvious edema. Neurologic: Exam tremulous. Follows commands. Moves 4 extremities. DIAGNOSTIC STUDIES: White cell count 9780, hemoglobin 11 g. PT is 17.4, PTT 32.3. Sodium 136, potassium 3.4, BUN 14, creatinine 1.2. IMPRESSION: 1. Patient who presents basically toxic, probably septic with acute cholecystitis. Gallstones noted. Recent diagnosis of acute pancreatitis. 2. History of moderate coronary atherosclerosis without critical stenosis with a stable pattern of chest discomfort. 3. History of hypertension. 4. History of hyperlipidemia. 5. Remote history of Systemic Lupus Erythematosus. 6. Probably cardiogenic plus noncardiogenic pulmonary edema related to sepsis and acute metabolic stress. His troponin levels have been checked twice. They were 0.416 and 0.718. That may represent type [address] myocardial infarction. RECOMMENDATIONS: From cardiology viewpoint, we basically need to focus on treating the septic condition. I will support him with fluids, pressors as needed, and I believe he really needs to go and have his gallbladder taken out to remove the septic focus. The patient understands. I have discussed this with Dr. Allred,Anesthesiologist. We will continue to follow the patient to provide cardiovascular care during the perioperative period. cc: Luis Fernando Cage MD MTDD
[2019-05-02 16:53] LABS: ALLEN TEST NO; BE -6.1 mmoll (-3.0-3.0); BLOOD TYPE ARTERIAL; METHB 1.3 % (0.0-1.5); O2(CT) 15.8 mL/dL (15.0-23.0); PO2(98.6) 62 mmHg (60-100); SAMPLE BLOOD; SAO2 93.6 % (95.0-100.0); SRATE 10 BPM; THB 12.3 g/dL (11.5-17.4); TVOL 650 mL
[2019-05-02] MEDS: MERREM 2 GM in NS 100 ML IV SCH ×2 (16:53→23:33)
[2019-05-02 16:55] LABS: pH(98.6) 7.16 (7.35-7.45)
[2019-05-02 16:56] LABS: MODALITY VENTILATOR; PCO2(98.6) 66 mmHg (35-45)
[2019-05-02 17:21] LABS: INR 1.58; PROTIME 19.2 Seconds (11.0-16.0)
[2019-05-02 17:22] LABS: PTT 33.9 Seconds (22.3-41.8)
[2019-05-02] MEDS ORDERED: OFIRMEV 1000 MG/ISOTONIC SOLN 1,000 MG/100 ML BOTTLE ONE (17:23)
[2019-05-02] MEDS ORDERED: ZOFRAN ONE (17:23)
[2019-05-02 17:25] LABS: HEMOGLOBIN 10.5 g/dL (14.0-18.0); MCH 28.8 PG (27-31); MCHC 31.8 g/dL (33-37); MCV 90.4 FL (81-99); MPV 10.2 FL (7.4-10.4); RBC 3.65 XMIL (4.7-6.1); RDW 14.6 % (11.5-14.5); WBC 13.64 X1000 (4.8-10.8)
[2019-05-02 18:14] LABS: AGAP 12; ALBUMIN 2.2 g/dL (3.5-5.0); ALKALINE PHOSPHATASE 65 U/L (32-122); BUN 18 mg/dL (8-22); CALCIUM 6.3 mg/dL (8.8-10.2); CHLORIDE 109 mmol/L (98-107); COSMO 282; ESTIMATED GFR > 60; GLUCOSE 111 mg/dL (70-104); GOT 198 U/L (10-34); GPT 139 U/L (10-44); POTASSIUM 4.3 mmol/L (3.5-5.1); SODIUM 140 mmol/L (136-145); TCO2 19 mmol/L (25-35); TOTAL BILIRUBIN 3.62 mg/dL (0.20-1.00); TOTAL PROTEIN 4.4 g/dL (6.3-8.3)
--- NOTE | 2019-05-02 18:34 | INFECTIOUS DISEASE CONSULT REP ---
DATE: 05/02/2019 CONCLUSIONS: The patient has a gram-negative christopher bacteremia secondary to acute cholecystitis. RECOMMENDATIONS: I agree with treating the patient with meropenem, and I have increased the dose to 2 g IV every 8 hours. DISCUSSION: The patient was unable to supply a consult. The information I had was from the computer and from the family. The patient started having abdominal pain, nausea and vomiting. He had been in [facility], and was diagnosed as having pancreatitis and gallstones. The patient then was sent to [facility], and the patient is in the intensive care unit. His CBC shows a white count of 9780, hemoglobin 11, and platelet count 87,000. Creatinine is 1.2. GFR is 59, AST is 183, and bilirubin is 3.93. Urinalysis was negative for white blood cells and bacteria. Blood cultures are growing gram-negative rods. Chest x-ray shows worsening pulmonary edema. CT scan of the abdomen shows gallstones in the gallbladder neck, distended gallbladder, and pericholecystic fluid. PAST MEDICAL HISTORY: Positive for prostate cancer status post prostatectomy, hypertension, hyperlipidemia, CAD, gastroesophageal reflux disease, and essential tremor. PAST SURGICAL HISTORY: Positive for prostatectomy for prostate cancer. SOCIAL HISTORY: The patient does not drink alcoholic beverages or abuse drugs. The patient stopped smoking cigarettes years ago. ALLERGIES: There are no known drug allergies. HOME MEDICATIONS: 1. Amoxicillin. 2. Xanax. 3. Vitamin D. 4. Lisinopril. 5. Metoprolol. 6. Omeprazole. 7. Ditropan. 8. Simvastatin. 9. Carafate. REVIEW OF SYSTEMS: Unable to be obtained from the patient. PHYSICAL EXAMINATION: Vital Signs: Temperature is 98.1 degrees, pulse 107, respirations 28, and blood pressure 95/56. General: This is an ill-appearing elderly male. He is in a slight delirium. Head/eyes/ears/nose/throat: No drainage noted from the nose or ears. I did not see any white patches in his mouth. The patient does have scleral icterus. Neck: No meningismus. Lungs: Clear to auscultation. Cardiovascular: Heart rate is regular and rapid. Abdomen: Soft and tender in the right upper quadrant. Neurologic: The patient is slightly delirious. When he talks, I cannot understand what he is saying. He did move his arms and legs to my request. The patient does not have a tremor. Thank you for the consult. cc: Quincy Padilla MD
[2019-05-02] MEDS: ATIVAN IV PRN ×2 (19:23→21:57)
[2019-05-02] MEDS: MORPHINE IV PRN (19:24)
[2019-05-02] MEDS: NS 1,000 ML IV SCH (19:24)
[2019-05-02] MEDS: ZOCOR PO SCH (21:56)
--- NOTE | 2019-05-02 22:24 | OPERATIVE NOTE ---
PROCEDURE DATE: 05/02/2019 PREOPERATIVE DIAGNOSIS: Cholecystitis. POSTOPERATIVE DIAGNOSIS: Acute cholecystitis. PROCEDURE: Laparoscopic converted to open cholecystectomy. SURGEON: Tye Fernando MD. TAX ACCOUNTING ASSISTANT: Dr. Devries. Dr. Devries assisted with the entirety of the case. His presence was crucial in completion of the case. FINDINGS: Significant bleeding noted of the gallbladder fossa secondary to very prominent and superficial veins and arteries noted in the gallbladder fossa. Dense inflammation noted to the gallbladder. COMPLICATIONS: None at time of this dictation. ESTIMATED BLOOD LOSS: 1600 mL. SPECIMEN REMOVED: Gallbladder. BRIEF HISTORY: A 79-year-old gentleman with abdominal pain. He had been seen initially at [facility], thought he had pancreatitis. He continued to have abdominal pain. He was initially discharged from [facility], but came over here secondary to abdominal pain. It was felt that he would benefit from a cholecystectomy. He did have a clinical decline yesterday concerning for sepsis. We did have a consultation with the Hospitalists and Cardiology, but they felt as though cholecystectomy could still be done. The risks, benefits, and alternatives for the procedure were extensively discussed with the family. All questions answered. DESCRIPTION OF PROCEDURE: After informed consent was obtained, the patient was brought to the operative theatre, transferred to the operative table and placed in supine position. Intravenous general anesthesia was then performed without complication. A formal time-out was then performed confirming patient, date, and procedure. All were agreement. At that time, attention was given to the abdomen. We first attempted a laparoscopic approach. We made an infraumbilical incision, through which using Optiview technique, we inserted an 11 mm trocar, connected to insufflation, pneumoperitoneum was achieved. Under direct visualization, we placed 3 more trocars, all 5 mm, 1 in subxiphoid, 2 in the right upper quadrant. Using these, the gallbladder was identified. It was very hard to grasp. We had to aspirate and try to drain it. We tried to retract it cephalad, but could not visualize things well. There was a tear on the sidewall where the gallbladder was attached to the liver, the gallbladder fossa, and there started to be significant bleeding. It made visualization very difficult. At this point, I made an executive decision to convert to an open procedure. We made a standard subcostal incision, connecting all the 5 mm trocars to enter into the abdomen. Upon entering the abdomen, we found significant bleeding at the gallbladder fossa. We took down the gallbladder from a top-down approach, grasping at the fundus with a Radha clamp and bringing it down. There were several areas that were bleeding along the surface of the gallbladder fossa where there were some superficial veins. We used a combination of suture ligation with 0 chromic on a blunt needle, clips, and electrocautery, and we were able to stop these bleeding areas. We were able to bring down the gallbladder all the way down to what felt like the cystic duct. It was very inflamed. We were able to isolate some tubular structures, but we elected to still use a TA stapler with a 45 thick load across the infundibulum. It appeared that all the portal structures were intact and we did not come across any other structures. We irrigated out the abdomen. We placed Surgicel and thrombin to the gallbladder fossa because it was still bleeding. Again, it did take several chromic stitches and other devices to stop the bleeding. We then irrigated out the abdomen. The patient lost over 1.5 L of blood. We elected to leave a drain given the inflammation. We tunneled it from a stab incision from the right upper quadrant. We placed it in the abdomen and the gallbladder fossa, secured it in place. We then closed the fascia in layers and then closed the skin with tyler. The patient tolerated the procedure, but was still in critical condition and was transferred to the ICU and on the ventilator. We did confirm the NG tube was in good position. cc: Tye Fernando MD
--- NOTE | 2019-05-02 22:36 | ECHO REPORT ---
ORDER DATE: 05/02/2019 MEASUREMENTS: 1. Septal thickness 1.1. 2. Left ventricular internal diameter in diastole 4.7. 3. Posterior wall thickness 0.8. 4. Left ventricular internal diameter in systole 3.5. 5. Aortic root 3.2. 6. Left atrium 3.2. SUMMARY: 1. Fair quality study. 2. Aortic valve is not well imaged, but demonstrates mild sclerotic change and appears to open adequately on 2-dimensional images. Peak gradient across the aortic valve is approximately 10 mmHg. Mitral, tricuspid, and pulmonic valves are without evidence of structural abnormality with mild mitral regurgitation and mild tricuspid regurgitation. Estimated systolic PA pressure by Doppler is 60 to 65 mmHg suggesting moderate pulmonary hypertension. Aortic root is normal in size. 3. Normal left ventricular dimensions demonstrated. Estimated left ejection fraction approximately 55%. No regional wall abnormality is evident. Left atrium, right atrium, right ventricle are normal size with grossly preserved right ventricular systolic function. 4. No pericardial effusion. 5. Appearance of inferior vena cava suggests mild elevation in central venous pressure. CONCLUSIONS: 1. Mild aortic valve sclerosis without stenosis. 2. Mild mitral regurgitation. 3. Mild tricuspid regurgitation with moderate pulmonary hypertension by Doppler. 4. Estimated left ejection fraction approximately 55%. 5. Mild elevation in central venous pressure suggested. cc: MD Luis Fernando Douglas MD
[2019-05-02] MEDS ORDERED: VANCOMYCIN 1,500 MG in NS 250 ML IV SCH (23:00)
[2019-05-03] MEDS: MORPHINE IV PRN ×6 (00:25→23:43)
[2019-05-03] MEDS: ATIVAN IV PRN ×5 (00:25→12:31)
[2019-05-03] MEDS: DILAUDID IV PRN ×3 (02:14→20:17)
[2019-05-03 04:55] LABS: ALLEN TEST YES; BE -2.2 mmoll (-3.0-3.0); BLOOD TYPE ARTERIAL; HCO3-(ACT) 23.2 mmoll (20.0-26.0); METHB 0.6 % (0.0-1.5); MODALITY VENTILATOR; O2(CT) 15.7 mL/dL (15.0-23.0); O2HB 97.8 % (95.0-99.0); PCO2(98.6) 37 mmHg (35-45); PO2(98.6) 154 mmHg (60-100); SAMPLE BLOOD; SAO2 99.8 % (95.0-100.0); SRATE 12 BPM; THB 11.2 g/dL (11.5-17.4); TVOL 750 mL; pH(98.6) 7.39 (7.35-7.45)
[2019-05-03] MEDS: CARAFATE PO SCH (06:02)
[2019-05-03] MEDS: MERREM 2 GM in NS 100 ML IV SCH ×3 (06:05→22:28)
[2019-05-03] MEDS: PRILOSEC PO SCH (06:50)
[2019-05-03 06:59] LABS: ALB/GLOB RATIO 0.9; ALBUMIN 2.3 g/dL (3.5-5.0); CALCIUM 7.5 mg/dL (8.8-10.2); CREATININE 1.2 mg/dL (0.7-1.2); POTASSIUM 4.5 mmol/L (3.5-5.1); TOTAL BILIRUBIN 3.61 mg/dL (0.20-1.00); TOTAL PROTEIN 4.8 g/dL (6.3-8.3)
[2019-05-03] MEDS: NS 1,000 ML IV SCH ×3 (07:01→20:17)
--- NOTE | 2019-05-03 07:02 | EKG Report ---
Test Performed on : 05/03/2019 06:59:47 AM Test Reason : non ST [place] Blood Pressure : / mmHG Vent. Rate : 070 BPM Atrial Rate : 070 BPM P-R Int : 104 ms QRS Dur : 068 ms QT Int : 418 ms P-R-T Axes : 016 004 073 degrees QTc Int : 451 ms Sinus rhythm. with short GA Low voltage QRS Nonspecific ST abnormality Abnormal ECG No previous ECGs available Confirmed by Manpreet MITCHELL, Rachid Napoles ([id number]) on 05/03/2019 10:20:55 AM
--- NOTE | 2019-05-03 07:16 | Diag Imaging Result Doc PS360 ---
EXAM: CHEST-PORTABLE 05/03/2019 HISTORY: pneumonia TECHNIQUE: AP portable at 0555 COMMENT: There is increasing pleural fluid on the left compared to 05/02/2019. There is now an endotracheal tube with its tip slightly below the thoracic inlet and an NG tube passing into the stomach. There is some platelike atelectasis in the right middle lobe. The inspiration is less optimal than on the previous study. IMPRESSION: Worsening atelectasis left lower lobe with left pleural effusion. Electronically signed by Saad Cerda 05/03/2019 7:14 AM
[2019-05-03 07:18] LABS: BASO# 0.01 X1000 (0.0-0.2); BASO% 0.1 % (0.0-0.8); HEMATOCRIT 34.4 % (42.0-52.0); HEMOGLOBIN 11.3 g/dL (14.0-18.0); IMM GRAN# 0.83 X1000 (0.0-0.04); IMM GRAN% 8.2 % (0.0-0.5); MCH 28.5 PG (27-31); MCHC 32.8 g/dL (33-37); MCV 86.9 FL (81-99); MONO# 0.35 X1000 (0.11-0.59); MONO% 3.5 % (1.7-9.3); MPV 11.5 FL (7.4-10.4); NEUT# 8.59 X1000 (1.4-6.5); NEUT% 85.2 % (42.2-75.2); PLT 97 X1000 (130-400); RBC 3.96 XMIL (4.7-6.1); RDW 15.1 % (11.5-14.5); WBC 10.08 X1000 (4.8-10.8)
[2019-05-03 08:14] LABS: BANDS 16 % (0-1); LYMPHS 4 % (21-51); MONO 5 % (1-9); SEGS 75 % (42-75)
--- NOTE | 2019-05-03 08:51 | CARDIOLOGY PROGRESS NOTE ---
DATE: 05/03/2009 CHIEF COMPLAINT: Abdominal pain, confusion, weakness. SUBJECTIVE: Mr. Buchanan has been intubated since his cholecystectomy yesterday. I have reviewed Dr. Tye Fernando's operative note indicating that there was a lot of inflammation in the gallbladder bed. The patient has required 4 units of blood since yesterday. This morning, he is hemodynamically stable. He is completely sedated. Remains intubated. OBJECTIVE: Vital signs: Blood pressure is 114/68, pulse 73, respirations 12. His temperature is 99 degrees. Electrocardiogram shows sinus rhythm with low voltage, nonspecific ST abnormality. The chest x- ray done this morning at 6 o'clock shows worsening atelectasis of the left lower lobe with a left pleural effusion. Echocardiogram done yesterday showed ejection fraction of about 55%. BLOOD WORK: His additional blood work, his hemoglobin is 11.3, white cell count 10,080. Sodium 140, potassium 4.5, BUN 31, creatinine 1.2. His AST going down to 185, ALT went up to 151, calcium 7.5, bilirubin 3.6. His troponin high sensitivity was 1036 ng/L. The urinalysis showed moderate bilirubin in the urine. IMPRESSION: 1. A patient who presented to the hospital with a picture of sepsis, delirium, confusion arising from very inflamed gallbladder. He is status post cholecystectomy postoperative day 1. 2. History of coronary atherosclerosis. 3. Non-ST myocardial infarction. This is probably a non-ST myocardial infarction type 2 due to increased demand on top of a background of coronary atherosclerosis. His electrocardiogram this morning does not show any major ST segment shift. He is hemodynamically stable. 4. A patient with a history of hypertension and also a history of hyperlipidemia. RECOMMENDATIONS: At this time, we will continue supportive measures. We will continue to monitor his electrocardiogram. We will recheck his troponins and cardiac enzymes. At this time, no specific Cardiology intervention appears to be necessary since the underlying process has been the acute cholecystitis and consequent systemic inflammation. cc: Luis Fernando Cage MD
[2019-05-03] MEDS: XANAX PO SCH (08:58)
[2019-05-03] MEDS: LOPRESSOR PO SCH (08:59)
[2019-05-03 09:09] LABS: CK INDEX 4.1 (0.0-2.5); CK-MB 15.59 ng/mL (0.0-5.0)
[2019-05-03] MEDS: DITROPAN PO SCH (09:11)
--- NOTE | 2019-05-03 10:17 | PROVIDER PROGRESS NOTE ---
Progress Note Pulmonary additional note: Full dictation to follow. I have seen and examined the case, reviewed the EMR, labs, latest images and oth er medical teams notes. 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 I have noted changes in condition if any from yesterday and did orders. Please see also signed progress sheet. Prognosis: Guarded for now. Since yesterday, He is on AC, not on pressors. Improving oxygenation. I slowed down IVF. I reviewed notes from Dr. Ramos, Niles Padilla and Dr. Fernando Respiratory failure post open choly, sepsis, shock is better and NSTEMI I discussed the case with and RN. Weaning trial today. I asked staff pharmacist hospital about condition changes and if they have any needs in regard to today conditions. I spent 30 minutes in this process.
--- NOTE | 2019-05-03 10:19 | PROVIDER PROGRESS NOTE ---
Progress Note Dr. Leon Progress Note/Pulmonary and or critical care We appreciated progress of care, Complications, change in diagnosis, and instructions to patient under direct supervision of Dr. Leon. Subjective: We note the level of consciousness, bed (chair) position, family presence (if any), level of lethargy, feeling of symptoms, and changes from baseline condition/symptom. The patient is intubated and sedated with PRN Ativan and Morphine. No fever overnight. BP stable at this time. FiO2 50% and tolerates well. Family at the bedside. Objective: Vital Signs: We reviewed EMR current values for Pulse rate, Blood pressure, Pulse rate, respiratory rate and Pulse oximetry. Also noted other values and trends if present (e.g. I/O, CVP). Vital Signs 05/02/19 16:00 05/02/19 16:30 05/02/19 16:33 Temperature 98.8 F Pulse Rate 109 H 109 H Respiratory Rate 10 L 10 L Blood Pressure 111/66 111/66 O2 Sat by Pulse Oximetry 93 L 93 L 97 05/02/19 16:34 05/02/19 16:45 05/02/19 17:00 Temperature Pulse Rate 110 H 110 H 109 H Respiratory Rate 10 L 10 L 14 Blood Pressure 113/71 125/73 O2 Sat by Pulse Oximetry 95 96 05/02/19 17:15 05/02/19 17:30 05/02/19 17:45 Temperature Pulse Rate 98 H 92 H 87 Respiratory Rate 14 12 12 Blood Pressure 126/77 116/76 118/70 O2 Sat by Pulse Oximetry 96 100 100 05/02/19 18:00 05/02/19 18:15 05/02/19 18:30 Temperature Pulse Rate 90 82 84 Respiratory Rate 12 12 12 Blood Pressure 118/66 113/74 113/72 O2 Sat by Pulse Oximetry 100 100 100 05/02/19 18:45 05/02/19 19:15 05/02/19 19:28 Temperature Pulse Rate 94 H 86 79 Respiratory Rate 13 12 12 Blood Pressure 119/78 109/71 O2 Sat by Pulse Oximetry 100 100 99 05/02/19 19:30 05/02/19 19:45 05/02/19 20:00 Temperature 98.6 F Pulse Rate 88 90 85 Respiratory Rate 12 12 12 Blood Pressure 99/65 92/61 94/61 O2 Sat by Pulse Oximetry 100 100 100 05/02/19 20:15 05/02/19 20:30 05/02/19 20:45 Temperature Pulse Rate 85 86 85 Respiratory Rate 12 12 12 Blood Pressure 92/64 92/63 95/64 O2 Sat by Pulse Oximetry 100 100 100 05/02/19 21:00 05/02/19 21:15 05/02/19 21:30 Temperature Pulse Rate 82 84 85 Respiratory Rate 12 12 12 Blood Pressure 98/64 97/67 97/65 O2 Sat by Pulse Oximetry 99 99 99 05/02/19 21:45 05/02/19 22:00 05/02/19 22:15 Temperature Pulse Rate 82 87 87 Respiratory Rate 12 14 12 Blood Pressure 98/65 111/67 91/59 O2 Sat by Pulse Oximetry 99 99 99 05/02/19 22:30 05/02/19 22:45 05/02/19 23:00 Temperature Pulse Rate 86 84 83 Respiratory Rate 12 12 12 Blood Pressure 96/62 86/55 87/57 O2 Sat by Pulse Oximetry 99 99 99 05/02/19 23:15 05/02/19 23:30 05/02/19 23:45 Temperature Pulse Rate 79 84 80 Respiratory Rate 12 12 12 Blood Pressure 88/55 88/55 90/58 O2 Sat by Pulse Oximetry 99 99 99 05/03/19 00:00 05/03/19 00:30 05/03/19 01:00 Temperature 98.7 F Pulse Rate 80 77 80 Respiratory Rate 12 12 12 Blood Pressure 93/57 112/69 91/57 O2 Sat by Pulse Oximetry 99 99 99 05/03/19 01:30 05/03/19 01:45 05/03/19 02:00 Temperature Pulse Rate 79 79 76 Respiratory Rate 12 12 12 Blood Pressure 88/54 98/66 O2 Sat by Pulse Oximetry 99 99 99 05/03/19 02:01 05/03/19 02:30 05/03/19 03:00 Temperature Pulse Rate 78 74 76 Respiratory Rate 12 14 12 Blood Pressure 87/53 87/55 O2 Sat by Pulse Oximetry 99 99 99 05/03/19 03:30 05/03/19 04:00 05/03/19 04:30 Temperature 99 F Pulse Rate 72 65 80 Respiratory Rate 12 13 14 Blood Pressure 106/64 105/64 122/73 O2 Sat by Pulse Oximetry 99 98 100 05/03/19 05:00 05/03/19 05:30 05/03/19 06:30 Temperature Pulse Rate 74 71 76 Respiratory Rate 12 12 12 Blood Pressure 97/62 111/69 114/68 O2 Sat by Pulse Oximetry 99 97 100 05/03/19 07:00 05/03/19 07:30 05/03/19 08:00 Temperature 98.5 F Pulse Rate 73 71 69 Respiratory Rate 12 12 12 Blood Pressure 111/66 103/66 104/65 O2 Sat by Pulse Oximetry 99 98 99 05/03/19 08:31 05/03/19 08:41 05/03/19 09:00 Temperature Pulse Rate 70 71 70 Respiratory Rate 14 13 17 Blood Pressure 129/81 121/70 O2 Sat by Pulse Oximetry 100 99 99 05/03/19 09:31 05/03/19 10:01 05/03/19 10:31 Temperature Pulse Rate 72 71 73 Respiratory Rate 12 14 17 Blood Pressure 108/61 118/73 133/81 O2 Sat by Pulse Oximetry 97 99 100 05/03/19 11:01 05/03/19 11:31 05/03/19 12:00 Temperature 98.1 F Pulse Rate 72 67 72 Respiratory Rate 12 12 12 Blood Pressure 103/61 109/61 103/61 O2 Sat by Pulse Oximetry 97 98 99 05/03/19 12:01 05/03/19 12:31 Temperature Pulse Rate 64 64 Respiratory Rate 12 15 Blood Pressure 122/66 107/65 O2 Sat by Pulse Oximetry 99 98 Intake & Output 05/02/19 05/03/19 05/03/19 19:59 07:59 19:59 Intake Total 575 / 1365 790 / 1365 Output Total 2600 / 3260 660 / 3260 Balance -2024 / -1894 130 / -1895 Intake: Intake, IV Amount 525 / 1175 650 / 1175 Intake, IVPB 50 / 190 140 / 190 Intake, Blood Product Amount 0 / 0 Fresh Frozen Plasma [id number] Unit 0 / 0 [id number] Fresh Frozen Plasma E4701 Unit 0 / 0 [id number] Leukoreduced Pc E0336 Unit 0 / 0 [id number] Leukoreduced Pc E0336 Unit 0 / 0 [id number] Leukoreduced Pc E0336 Unit 0 / 0 [id number] Leukoreduced Pc E0336 Unit 0 / 0 [id number] Pheresis Platelets E3087 Unit 0 / 0 [id number] Output: Output, Urine Thompson Amount 1000 / 1600 600 / 1600 Output, IRMA Drain #1 60 / 60 Output, Estimated Blood Loss 1600 / 1600 Amount Physical Examination: General: Intubated and sedated. Lying in bed with no acute distress noted. HEENT: Trachea midline. Mucus pink and slightly dry. Chest: Symmetrical excursion. Diminished breathing sounds b/l with mild crackles. CVS: S1 S2. Abdomen: Soft. Bowel sounds present. Dressing on the right side of the RUQ is soaked with serosangineous drainage with some leaking to the gown and sheet. Extremities: Trace pedal edema. Dorsalis pedis diminished b/l. Neuro: Intubated and sedated. Labs and Radiology: Reviewed available labs and radiology values available at time of EMR review. Laboratory Results 04/30/19 05/02/19 05/02/19 21:54 16:45 17:06 WBC RBC Hgb Hct MCV MCH MCHC RDW Std Deviation Plt Count MPV Immature Gran % (Auto) Neut % (Auto) Lymph % (Auto) Marion % (Auto) Eos % (Auto) Baso % (Auto) Immature Gran # (Auto) Neut # (Auto) Lymph # (Auto) Marion # (Auto) Eos # (Auto) Baso # (Auto) Segmented Neutrophils Band Neutrophils Lymphocytes Monocytes PT INR PTT (Actin FS) Specimen Type ARTERIAL Sample Site OTHER pH 7.16 L* pCO2 66 H* pO2 62 HCO3 20.0 Base Excess -6.1 L Oxyhemoglobin 91.0 L ABG O2 Sat (Calculated) 15.8 ABG O2 Saturation 93.6 L ABG Carboxyhemoglobin 1.60 ABG Methemoglobin 1.3 James Test NO A-a O2 Difference 212.0 Total Hemoglobin 12.3 Lactate 1.90 Blood Gas Modality VENTILATOR Vent Mode A/C Spontaneous Rate 10 FiO2 % 50.0 Tidal Volume 650 PEEP 5.0 Sodium 140 Potassium 4.3 D Chloride 109 H Carbon Dioxide 19 L Anion Gap 12 BUN 18 Creatinine 1.0 Estimated GFR/1.73 m2 > 60 BUN/Creatinine Ratio 18 Glucose 111 H Calculated Osmolality 282 Calcium 6.3 L* D Total Bilirubin 3.62 H AST 198 H ALT 139 H Alkaline Phosphatase 65 Creatine Kinase Creatine Kinase Index CK-MB (CK-2) Troponin T High Sens Total Protein 4.4 L Albumin 2.2 L Globulin 2.2 Albumin/Globulin Ratio 1.0 Blood Type A POSITIVE Antibody Screen NEGATIVE Crossmatch See Detail 05/02/19 05/02/19 05/03/19 17:06 17:06 04:25 WBC 13.64 H RBC 3.65 L Hgb 10.5 L Hct 33.0 L MCV 90.4 MCH 28.8 MCHC 31.8 L RDW Std Deviation 14.6 H Plt Count 114 L D MPV 10.2 Immature Gran % (Auto) Neut % (Auto) Lymph % (Auto) Marion % (Auto) Eos % (Auto) Baso % (Auto) Immature Gran # (Auto) Neut # (Auto) Lymph # (Auto) Marion # (Auto) Eos # (Auto) Baso # (Auto) Segmented Neutrophils Band Neutrophils Lymphocytes Monocytes PT 19.2 H INR 1.58 PTT (Actin FS) 33.9 Specimen Type ARTERIAL Sample Site R RADIAL pH 7.39 pCO2 37 pO2 154 H HCO3 23.2 Base Excess -2.2 Oxyhemoglobin 97.8 ABG O2 Sat (Calculated) 15.7 ABG O2 Saturation 99.8 ABG Carboxyhemoglobin 1.40 ABG Methemoglobin 0.6 James Test YES A-a O2 Difference 299.0 Total Hemoglobin 11.2 L Lactate 1.60 Blood Gas Modality VENTILATOR Vent Mode Spontaneous Rate 12 FiO2 % 70.0 Tidal Volume 750 PEEP 5.0 Sodium Potassium Chloride Carbon Dioxide Anion Gap BUN Creatinine Estimated GFR/1.73 m2 BUN/Creatinine Ratio Glucose Calculated Osmolality Calcium Total Bilirubin AST ALT Alkaline Phosphatase Creatine Kinase Creatine Kinase Index CK-MB (CK-2) Troponin T High Sens Total Protein Albumin Globulin Albumin/Globulin Ratio Blood Type Antibody Screen Crossmatch 05/03/19 05/03/19 05/03/19 05:45 05:45 05:45 WBC 10.08 RBC 3.96 L Hgb 11.3 L Hct 34.4 L MCV 86.9 MCH 28.5 MCHC 32.8 L RDW Std Deviation 15.1 H Plt Count 97 L MPV 11.5 H Immature Gran % (Auto) 8.2 H Neut % (Auto) 85.2 H Lymph % (Auto) 3.0 L Marion % (Auto) 3.5 Eos % (Auto) 0.0 Baso % (Auto) 0.1 Immature Gran # (Auto) 0.83 H Neut # (Auto) 8.59 H Lymph # (Auto) 0.30 L Marion # (Auto) 0.35 Eos # (Auto) 0.00 Baso # (Auto) 0.01 Segmented Neutrophils 75 Band Neutrophils 16 H Lymphocytes 4 L Monocytes 5 PT INR PTT (Actin FS) Specimen Type Sample Site pH pCO2 pO2 HCO3 Base Excess Oxyhemoglobin ABG O2 Sat (Calculated) ABG O2 Saturation ABG Carboxyhemoglobin ABG Methemoglobin James Test A-a O2 Difference Total Hemoglobin Lactate Blood Gas Modality Vent Mode Spontaneous Rate FiO2 % Tidal Volume PEEP Sodium 140 Potassium 4.5 Chloride 107 Carbon Dioxide 22 L Anion Gap 11 BUN 31 H D Creatinine 1.2 Estimated GFR/1.73 m2 59 BUN/Creatinine Ratio 26 Glucose 126 H Calculated Osmolality 287 Calcium 7.5 L D Total Bilirubin 3.61 H AST 185 H ALT 151 H Alkaline Phosphatase 94 Creatine Kinase 382 H Creatine Kinase Index 4.1 H CK-MB (CK-2) 15.59 H Troponin T High Sens Total Protein 4.8 L Albumin 2.3 L Globulin 2.5 Albumin/Globulin Ratio 0.9 Blood Type Antibody Screen Crossmatch 05/03/19 05:45 WBC RBC Hgb Hct MCV MCH MCHC RDW Std Deviation Plt Count MPV Immature Gran % (Auto) Neut % (Auto) Lymph % (Auto) Marion % (Auto) Eos % (Auto) Baso % (Auto) Immature Gran # (Auto) Neut # (Auto) Lymph # (Auto) Marion # (Auto) Eos # (Auto) Baso # (Auto) Segmented Neutrophils Band Neutrophils Lymphocytes Monocytes PT INR PTT (Actin FS) Specimen Type Sample Site pH pCO2 pO2 HCO3 Base Excess Oxyhemoglobin ABG O2 Sat (Calculated) ABG O2 Saturation ABG Carboxyhemoglobin ABG Methemoglobin James Test A-a O2 Difference Total Hemoglobin Lactate Blood Gas Modality Vent Mode Spontaneous Rate FiO2 % Tidal Volume PEEP Sodium Potassium Chloride Carbon Dioxide Anion Gap BUN Creatinine Estimated GFR/1.73 m2 BUN/Creatinine Ratio Glucose Calculated Osmolality Calcium Total Bilirubin AST ALT Alkaline Phosphatase Creatine Kinase Creatine Kinase Index CK-MB (CK-2) Troponin T High Sens 906 H* Total Protein Albumin Globulin Albumin/Globulin Ratio Blood Type Antibody Screen Crossmatch Dr. Leon evaluated and additional note below. Evaluation time in minutes: 33 minutes. Assessment: Acute hypoxic respiratory failure secondary to cholecystectomy. Pulmonary edema, LLL atelectasis and left pleural effusion. Worsened Acute cholecystitis. Laparoscopic converted to open cholecystecotomy on 05/02/2019 Septic shock with gram-negative christopher bacteremia. No pressor needed at this time. Troponin elevation LFTs elevation Plan: Continue current treatment and supportive care per admitting and other teams on the case. Antibiotics. Bronchodilators PRN. Appropriate DVT and GI prophylaxis. Input was appreciated from Admitting MD and other teams on the case. See additional notes by Dr. Leon. A full dictation follow.
--- NOTE | 2019-05-03 10:23 | GENERAL SURGERY PROGRESS NOTE ---
DATE: 05/03/2019 SUBJECTIVE: Nursing staff reports the patient has been doing okay. His blood pressure has been in the 100s on noninvasive. IRMA drains had some serosanguineous output, but nothing significant. OBJECTIVE: Vital Signs: The patient is currently afebrile. Vital signs are stable. General: Sedated on the ventilator. Cardiovascular: Regular rate and rhythm. Lungs: Referred airway noises. Abdomen: Soft. IRMA drain in place with serosanguineous output. LABORATORY DATA: Reviewed from yesterday. ABGs from this morning was reviewed. ASSESSMENT AND PLAN: A 79-year-old gentleman status post open cholecystectomy with significant blood loss. Open cholecystectomy. At this time, will continue supportive care. Will reassess his labs this morning. He may need calcium since it was significantly low yesterday. Will recheck it this morning. It is likely related to the blood that he received. He has not had any cardiac changes. Will defer to the hospitalist. Will continue to monitor him closely. Will keep him on the ventilator until he is a little more alert, but hopefully he can be extubated here in the near future. cc: Tye Fernando MD
[2019-05-03] MEDS ORDERED: NS 500 ML IV ONE (11:08)
--- NOTE | 2019-05-03 12:15 | PROGRESS NOTE ---
DATE: 05/03/2019 SUBJECTIVE: This morning Mr. Buchanan continues to be [facility]ated and [facility] At the time of the encounter, the and the patient's welfare manager, and welfare manager's were at the bedside. Briefly, Mr. Buchanan was taken to OR yesterday where a laparoscopic converted to an open cholecystectomy was done. The findings noted that there was a lot of bleeding at the gallbladder fossa secondary to very prominent and superficial vessels and arteries. There was a dense inflammation noted to the gallbladder as well. The patient had about 1.6 L of blood loss during the surgery. He got a total of 4 PRBC's, 2 FFP's, and one platelet transfusion yesterday. This morning Mr. Buchanan remains fairly stable, and continues to be intubated. OBJECTIVE: Vital signs: Blood pressure 104/65, pulse of 69, respirations 12, and temperature 98.5 degrees. The patient is saturating 99% on mechanical ventilator. General: Mr. Buchanan is a 79-year-old elderly male. He is in bed currently intubated. Mucosa is pink and moist. Anicteric. Acyanotic. Neck: Supple. Chest: Good air entry bilaterally. There are some transmitted sounds from the ventilator. Cardiovascular: Regular rate and rhythm. No murmurs, no rubs, no gallops. GI: Abdomen is soft. There is a dressing over the right upper quadrant where the surgical incision is. There is also a draining at the same spot. I understand there was some serosanguineous secretion that got the dressing wet early this morning that needed to be changed. : There is a Thompson catheter in place. Extremities: No pedal edema. 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 He is however able to move his extremities to painful stimulation. He has pupillary reflex to light. Per the nursing staff, Mr. Buchanan will respond whenever he is off sedation. LABORATORY DATA: WBC is 10.08, hemoglobin is 11.3, and platelet count of 97,000. Chemistry is also reviewed. AST is trending down. ALT is slightly trending up. Troponins are trending down. Liver and renal function test seems to be unremarkable. The patient's I's and O's, urine output was 1600. The patient is currently negative balance of over 707. MICROBIOLOGY DATA: Data is still showing gram-negative rods. ID is still pending. CURRENT MEDICATIONS: 1. Tylenol. 2. P.r.n. Ativan. 3. Meropenem 2 g every 8 hours. ASSESSMENT: 1. Septic shock, due to acute cholecystitis complicated with gram-negative christopher bacteremia and shock liver, and sepsis induced encephalopathy. The patient has not needed any pressor. 2. Acute calculous cholecystitis. Patient is status post status post laparoscopic converted to an open cholecystectomy. Today is day 1 postop. 3. Acute respiratory failure after abdominal surgery. Patient continues to be intubated. Pulmonary Medicine has been consulted. 4. Troponin elevation secondary to demand mismatch ischemia. 5. Pulmonary edema noted. PLAN: For today, we are going to continue with the current antimicrobial coverage and pending the ID and sensitivity on the GNR. We will continue with the ventilator support, and await for other subspecialties who are involved with the care of Mr. Buchanan for their recommendation. We appreciate Pulmonary, Cardiology, Surgery and Infectious Disease input. cc: Eder Ramos MD Critical time:45 minutes [facility]
[2019-05-03] MEDS: PROTONIX IV SCH (12:36)
[2019-05-03] MEDS ORDERED: ROMAZICON IV ONE (13:58)
[2019-05-03] MEDS ORDERED: ROMAZICON ONE (14:02)
[2019-05-03 15:13] LABS: ALLEN TEST NO; BE -1.7 mmoll (-3.0-3.0); BLOOD TYPE ARTERIAL; HCO3-(ACT) 23.5 mmoll (20.0-26.0); METHB 0.6 % (0.0-1.5); O2(CT) 16.5 mL/dL (15.0-23.0); O2HB 94.3 % (95.0-99.0); PCO2(98.6) 42 mmHg (35-45); PO2(98.6) 69 mmHg (60-100); SAMPLE BLOOD; SAO2 96.2 % (95.0-100.0); THB 12.4 g/dL (11.5-17.4); pH(98.6) 7.36 (7.35-7.45)
[2019-05-03 15:14] LABS: MODALITY VENTILATOR
--- NOTE | 2019-05-03 20:17 | INFECTIOUS DISEASE PROGRESS NO ---
DATE: 05/03/2019 PRESENT ILLNESS: Mr. Buchanan has a gram-negative christopher bacteremia due to an acute cholecystitis. He is status post open cholecystectomy. MEDICATIONS: Today is day 1 of meropenem 2 g IV every 8 hours. PHYSICAL EXAMINATION: Vital Signs: Temperature is 98.1 degrees, pulse rate 63, respiratory rate 12, blood pressure 104/63, O2 saturation is 97% on 70% FiO2 on the mechanical ventilator. General: This is a sedated, critically ill appearing, elderly gentleman who is lying in the bed, currently on the mechanical ventilator, in no acute distress. HEENT: Atraumatic, normocephalic. Oral mucous membranes are pink and dry. Conjunctivae are pink. Oral ET tube is in place as well as NG tube which is to low intermittent suction, with green fluid draining from his stomach. Respiratory: Lung sounds are clear in the upper and middle lobes, diminished in the bases. No work of breathing is noted. He is not breathing over the set rate on the ventilator. Cardiovascular: Heart rate and rhythm are regular. Normal sinus rhythm on the monitor. Abdomen: Soft and round with a dressing in place to the right upper quadrant, as well as a IRMA to the right lower quadrant, with reinforced dressings due to some bloody drainage from that drain site. I did not hear any bowel sounds. Integumentary: Skin is warm and dry. Neurologic: He is sedated, on the mechanical ventilator. LABORATORY AND X-RAY: Today, his white count is 10.08, hemoglobin 11.3, platelet count 97,000. His pH is 7.39, pCO2 37, pO2 154, on a 70% FiO2. Creatinine is 1.2. GFR 59. Total bilirubin 3.61, AST 185, ALT 151, alkaline phosphatase 94. A urine specimen done yesterday was negative for bacteria or WBCs. Blood cultures have shown gram-negative rods on both specimens which have yet to be identified. Chest x-ray done today shows worsening atelectasis of the left lower lobe with a left pleural effusion. ASSESSMENT AND PLAN: Mr. Buchanan is status post open cholecystectomy with a gram-negative christopher bacteremia secondary to cholecystitis. We are still awaiting the final report of the organism. He will require a total of 14 days of treatment from the first day of repeat, sterile blood cultures. Today, his white blood cell count is normal, so we will continue the meropenem as ordered. These plans have been discussed with and recommended by Dr. Padilla. COMORBIDITIES: For Mr. Buchanan, include that he is elderly with coronary artery disease, with a non-ST elevated myocardial infarction on this admission, gastroesophageal reflux disease, and pulmonary edema. Dictated by ASHLEY Dumas for Quincy Padilla MD cc: Quincy Padilla MD [facility]
[2019-05-04] MEDS: DILAUDID IV PRN ×2 (04:12→16:42)
[2019-05-04 04:36] LABS: ALLEN TEST YES; BE -0.2 mmoll (-3.0-3.0); BLOOD TYPE ARTERIAL; HCO3-(ACT) 24.7 mmoll (20.0-26.0); METHB 0.8 % (0.0-1.5); O2(CT) 16.9 mL/dL (15.0-23.0); O2HB 93.9 % (95.0-99.0); PCO2(98.6) 50 mmHg (35-45); PO2(98.6) 72 mmHg (60-100); SAMPLE BLOOD; SAO2 96.2 % (95.0-100.0); THB 12.8 g/dL (11.5-17.4); pH(98.6) 7.33 (7.35-7.45)
[2019-05-04 04:37] LABS: MODALITY COOL AEROSOL
--- NOTE | 2019-05-04 05:19 | EKG Report ---
Test Performed on : 05/04/2019 04:46:19 AM Test Reason : non ST DC Blood Pressure : / mmHG Vent. Rate : 084 BPM Atrial Rate : 084 BPM P-R Int : 148 ms QRS Dur : 074 ms QT Int : 384 ms P-R-T Axes : 041 -21 054 degrees QTc Int : 453 ms Normal sinus rhythm. Low voltage QRS Borderline ECG When compared with ECG of 03-MAY-2019 06:59, HI interval has increased Confirmed by Manpreet MITCHELL, Rachid Napoles ([id number]) on 05/05/2019 7:01:24 PM
[2019-05-04] MEDS: MERREM 2 GM in NS 100 ML IV SCH (06:04)
--- NOTE | 2019-05-04 06:28 | CONSULTATION ---
DATE OF CONSULTATION: 05/03/2019 REQUESTING PROVIDER: Dr. Eder Ramos REASON FOR CONSULTATION: Respiratory failure after abdomen surgery. HISTORY OF PRESENT ILLNESS: This is a 79-year-old male with a medical history of prostate gland cancer, hypertension, hyperlipidemia, gastroesophageal reflux disease, overactive bladder, essential tremors, moderate coronary atherosclerosis, and systemic lupus erythematosus. He was initially admitted on 05/01/2019 with cholecystitis on the same day that he was discharged home from [facility] after 4 days of hospitalization with pancreatitis and gallstones. 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 As the gallbladder was the septic focus, the [facility] Dr. Cage, and the hospitalist Dr. Ramos recommended the surgeon Dr. Fernando to proceed with cholecystectomy as initially planned. So the patient underwent laparoscopic converted to open cholecystectomy yesterday afternoon. During the procedure the patient had significant bleeding of the gallbladder fossa secondary to very prominent and superficial veins and arteries, and dense inflammation of the gallbladder. After the procedure the patient remained intubated and was transferred to the ICU. The patient currently is still intubated and sedated with PPI, Ativan and morphine. He had no fever overnight. Blood pressure has been stable since this morning. He is on FiO2 at 50% and tolerates it well. Multiple family members are at the bedside. The patient apparently received 2 units of plasma, 4 units of red blood cells, and 1 unit of platelets yesterday after the procedure. PAST MEDICAL HISTORY: 1. Prostate gland cancer status post radiotherapy and radical retropubic nerve- sparing prostatectomy on 06/15/[address] Gardner. 2. Hypertension. 3. Hyperlipidemia. 4. Gastroesophageal reflux disease. 5. Overactive bladder or radiation cystitis. 6. Essential tremors. 7. Moderate coronary atherosclerosis without critical stenosis. 8. Dementia. 9. Remote history of systemic lupus erythematosus. 10. Recent hospitalization of [address] [facility] with pancreatitis and gallstones. PAST SURGICAL HISTORY: 1. Prostatectomy. 2. Back surgery x2. 3. Eye surgery. SOCIAL HISTORY: The patient is and lives at home. He is a former smoker. He has no history of alcohol or illicit drug use. FAMILY HISTORY: Positive for heart disease. ALLERGIES: No known drug allergies. REVIEW OF SYSTEMS: Unable to be obtained. PHYSICAL EXAMINATION: Vital Signs: Temperature 98.1 degrees, blood pressure 103/61, pulse 72, respiratory rate 12, oxygen saturation 99% on AC mechanical ventilator, with spontaneous rate 12, FiO2 50%, tidal volume 750, and PEEP 5. General: Intubated and sedated, lying in bed with no acute distress noted. HEENT: Trachea midline. ET tube in place. Mucosa pink and slightly dry. Chest: Mechanically ventilated. Symmetrical excursion. Auscultation reveals diminished breathing sounds bilaterally with mild inspiratory crackles. Cardiovascular: Regular rate and rhythm. Gastrointestinal: Soft, nondistended. Dressing covering the right side of the right upper quadrant, which is soft with serosanguineous drainage with some drainage leaking to the gown and sheet. Extremities: Trace pedal edema. No cyanosis. No clubbing. Dorsalis pedis diminished bilaterally. Neurologic: Intubated and sedated. LABORATORY DATA: White blood cells 10.08, hemoglobin 11.3, hematocrit 34.4, platelets 97,000. Sodium 140, potassium 4.5, chloride 107, carbon dioxide 22, BUN 31, creatinine 1.2, glucose 126. ABG, pH is 7.39, pCO2 of 37, PO2 of 154, HC03 of 23.2, base excess -2.2, oxyhemoglobin 97.8. IMAGING DATA: Chest x-ray this morning showed worsening atelectasis left lower lobe with left pleural effusion. ASSESSMENT: This is a 79-year-old male with a medical history of prostatic gland cancer, hypertension, hyperlipidemia, gastroesophageal reflux disease, essential tremors, moderate coronary atherosclerosis, cirrhosis, and systemic lupus erythematosus. She has been admitted since 05/01/2019 with cholecystitis on the same day that he was discharged home from [facility] after 4 days of hospitalization with pancreatitis and gallstones. 1. Acute hypoxic respiratory failure secondary to cholecystectomy. 2. Pulmonary edema, left lower lobe atelectasis, and left pleural effusion. 3. Septic shock with gram negative christopher bacteremia, improving. No pressor needed at this time. 4. Acute cholecystitis status post laparoscopic converted to open cholecystectomy on 05/02/2019. 5. Troponin elevation. 6. Liver function tests elevation. PLAN: 1. Continue AC mechanical ventilator. We will initiate weaning trials when appropriate. 2. Continue antibiotics and fluid resuscitation as indicated. 3. Follow up with ABG, CBC, CMP, blood culture, troponin high sensitivity time, and chest x-ray. 4. Continue GI and DVT prophylaxis. 5. Further recommendations pending hospital course. Thank you for the courtesy of this consultation. Dictated by ASHLEY Jones for Jorge Leon MD cc: ASHLEY Jones MD [facility]
[2019-05-04 06:31] LABS: BASO# 0.01 X1000 (0.0-0.2); BASO% 0.1 % (0.0-0.8); EOS# 0.01 X1000 (0.0-0.7); EOS% 0.1 % (0.0-10.0); HEMATOCRIT 36.6 % (42.0-52.0); IMM GRAN# 0.03 X1000 (0.0-0.04); IMM GRAN% 0.2 % (0.0-0.5); LYMPH# 0.57 X1000 (1.2-3.4); LYMPH% 3.3 % (20.5-51.1); MCH 28.8 PG (27-31); MCHC 32.8 g/dL (33-37); MONO# 0.56 X1000 (0.11-0.59); MONO% 3.2 % (1.7-9.3); MPV 11.8 FL (7.4-10.4); NEUT# 16.35 X1000 (1.4-6.5); NEUT% 93.1 % (42.2-75.2); PLT 102 X1000 (130-400); RBC 4.16 XMIL (4.7-6.1); RDW 14.9 % (11.5-14.5); WBC 17.53 X1000 (4.8-10.8)
[2019-05-04 06:32] LABS: AGAP 10; ALB/GLOB RATIO 0.8; ALBUMIN 2.4 g/dL (3.5-5.0); ALKALINE PHOSPHATASE 117 U/L (32-122); BUN 38 mg/dL (8-22); CALCIUM 8.1 mg/dL (8.8-10.2); CHLORIDE 109 mmol/L (98-107); COSMO 299; CREATININE 0.8 mg/dL (0.7-1.2); ESTIMATED GFR > 60; GLUCOSE 124 mg/dL (70-104); GOT 88 U/L (10-34); GPT 126 U/L (10-44); POTASSIUM 4.8 mmol/L (3.5-5.1); SODIUM 145 mmol/L (136-145); TCO2 26 mmol/L (25-35); TOTAL BILIRUBIN 1.72 mg/dL (0.20-1.00); TOTAL PROTEIN 5.4 g/dL (6.3-8.3)
--- NOTE | 2019-05-04 06:33 | Diag Imaging Result Doc PS360 ---
EXAM: CHEST-PORTABLE HISTORY: pneumonia TECHNIQUE: Single view COMPARISON: 05/03/2019 FINDINGS: The endotracheal tube has been removed. Nasogastric tube overlies the esophagus and stomach. There is a small left pleural effusion with basilar atelectasis and or infiltrates. There is mild pulmonary edema which is more prominent and mild cardiac prominence. IMPRESSION: Mild interval worsening. Electronically signed by Filippo Fish 05/04/2019 6:31 AM
[2019-05-04 06:57] LABS: CK INDEX 2.2 (0.0-2.5); CK-MB 8.1 ng/mL (0.0-5.0)
--- NOTE | 2019-05-04 07:36 | PROVIDER PROGRESS NOTE ---
Progress Note Pulmonary additional note: I have seen and examined the case, reviewed the EMR, labs, latest images and other medical teams notes. Also reviewed the TRACK ANNOUNCER notes and signed necessary form(s). I have noted changes in condition if any from yesterday and did orders. Please see also signed progress sheet. Since yesterday, he tolerated weaning and eventually extubated and that was tolerated overnight. Family at bed-side (group praying) Prognosis: Guarded for now. I reviewed notes from Dr. Ramos and ID. Septic shock is better, cholecystitis, respiratory failure and mild pulmonary edema. I asked full time staff interpreter about condition changes and if they have any needs in regard to today conditions. I spent 32 minutes in this process.
[2019-05-04] MEDS ORDERED: LASIX IV ONE (08:53)
[2019-05-04 09:03] LABS: BANDS 3 % (0-1); LYMPHS 2 % (21-51); MONO 3 % (1-9); SEGS 92 % (42-75)
--- NOTE | 2019-05-04 09:07 | CARDIOLOGY PROGRESS NOTE ---
DATE: 05/04/2019 CHIEF COMPLAINT: Confusion, weakness, shortness of breath, abdominal pain, nausea, vomiting. SUBJECTIVE: Mr. Buchanan is more awake today. He has been extubated. His chest x-ray this morning shows mild worsening of pulmonary edema. He is not in any pain. Family, sister, and niece are at the bedside. The patient is a little tremulous. OBJECTIVE: Vital signs: Temperature 97.7, pulse 97, respirations 15, blood pressure 131/69. The patient is not on any pressor. General: He is awake, follows some commands. He is a little bit confused. HEENT: Unremarkable. Chest: Diminished breath sounds at bases. Heart: Sounds are regular and rhythmic. I do not hear a gallop or murmur. Abdomen: Distended, bowel sounds diminished, slightly tender. Dressing is covering the wound. Extremities: Showed no edema. Neurologic exam: He has some shakiness. His 12-lead EKG today shows sinus rhythm with a low voltage. No significant ST-T abnormality is noted. His troponin has come down to 728 ng/L. His CPK has come down to 376 units, index is 2.2% is low, CK-MB also down to 8.1. Sodium 145, potassium 4.8, BUN 38, creatinine 0.8. Hemoglobin this morning is 12 g%. His blood gases on 40% FiO2 extubated: pH 7.23, pCO2 is 50, pO2 72. IMPRESSION: 1. A patient who is status post cholecystectomy for acute cholecystitis complicated with pancreatitis postoperative day number 2. 2. Qxy-YE-[id number] myocardial infarction type 2 due to increased demand on top of underlying coronary atherosclerosis. 3. A patient with positive blood culture for Escherichia coli. He has septicemia. That is probably arising from the cholecystitis. His Escherichia coli is sensitive to amikacin, cefazolin, gentamicin, Levaquin, tobramycin, and piperacillin-tazobactam. It is resistant to ampicillin-sulbactam and to Bactrim also. RECOMMENDATIONS: At this time, we will continue general supportive measures. Because his chest x- ray shows some pulmonary edema, we will give him some Lasix. We will monitor his blood pressure. I believe he is getting over this septic process. Again, his EKG does not show any dramatic changes and his troponins and CPKs are going down. We will continue to monitor his course. Thank you for the opportunity to participate in his evaluation. cc: Luis Fernando Cage MD
[2019-05-04] MEDS: NS 1,000 ML IV SCH (11:14)
--- NOTE | 2019-05-04 11:17 | GENERAL SURGERY PROGRESS NOTE ---
DATE: 05/04/2019 SUBJECTIVE: Patient seems to be doing a little better. Nursing staff reports no major issues. He was extubated yesterday. He did have a little bit of increased drainage out of his Manpreet- Guido drain, but it looks serosanguineous. OBJECTIVE: Vital Signs: Patient is currently afebrile. His vital signs are stable. General exam: No acute distress. Cardiovascular: Regular rate and rhythm. Lungs: Some coarse sounds noted. Abdomen: Soft, appropriately tender. IRMA drain with serosanguineous output. LABORATORY: Pending. ABG reviewed. ASSESSMENT AND PLAN: A 79-year-old gentleman, currently postoperative day #2 from open cholecystectomy. 1. Postoperative state at this time: The patient seems to be doing okay, all things considered. We will keep his Manpreet-Guido drain in place. I would like to at least watch him in the intensive care unit for another day since he just got extubated. If he does have to be moved out, I would want him to go to the [facility], but at this point we will continue supportive care. Continue antibiotics. Continue to monitor him. Continue Manpreet-Guido drain. Continue Thompson catheter and continue nasogastric tube. We will await return of bowel function as far as the nasogastric tube is concerned. cc: Tye Fernando MD
[2019-05-04] MEDS ORDERED: XOPENEX NEB INH PRN (11:25)
[2019-05-04] MEDS ORDERED: ATROVENT NEB INH PRN (11:26)
[2019-05-04] MEDS ORDERED: NS NEB INH SCH (11:30)
--- NOTE | 2019-05-04 11:51 | PROVIDER PROGRESS NOTE ---
Progress Note Dr. Leon Progress Note/Pulmonary and or critical care We appreciated progress of care, Complications, change in diagnosis, and instructions to patient under direct supervision of Dr. Leon. Subjective: We note the level of consciousness, bed (chair) position, family presence (if any), level of lethargy, feeling of symptoms, and changes from baseline condition/symptom. The patient was extubated yesterday. No fever overnight. BP stable at this time. Currently on CAM 40% and tolerates well. He is emotional when I step in the room and stating that I am leaking. Rosado and IRMA drain checked. No leakage with rosado. IRMA leakage present since yesterday, but is secured and surgeon noted. Patient is ensured and he is feeling better. Deny pain. at the bedside. Objective: Vital Signs: We reviewed EMR current values for Pulse rate, Blood pressure, Pulse rate, respiratory rate and Pulse oximetry. Also noted other values and trends if present (e.g. I/O, CVP). Vital Signs 05/03/19 17:01 05/03/19 18:00 05/03/19 18:01 Temperature Pulse Rate 93 H 82 86 Respiratory Rate 21 21 14 Blood Pressure 133/82 128/74 O2 Sat by Pulse Oximetry 94 L 95 96 05/03/19 18:12 05/03/19 18:31 05/03/19 19:01 Temperature 98.0 F Pulse Rate 85 80 97 H Respiratory Rate 21 21 21 Blood Pressure 128/74 123/68 140/76 O2 Sat by Pulse Oximetry 96 96 96 05/03/19 19:31 05/03/19 19:36 05/03/19 20:02 Temperature 98.0 F Pulse Rate 96 H 93 H 99 H Respiratory Rate 18 20 19 Blood Pressure 103/74 103/74 133/74 O2 Sat by Pulse Oximetry 96 95 92 L 05/03/19 20:20 05/03/19 20:32 05/03/19 21:01 Temperature Pulse Rate 103 H 95 H Respiratory Rate 18 13 Blood Pressure 155/93 119/69 O2 Sat by Pulse Oximetry 96 96 98 05/03/19 21:31 05/03/19 22:01 05/03/19 22:31 Temperature Pulse Rate 93 H 83 85 Respiratory Rate 14 11 L 12 Blood Pressure 123/83 130/73 138/78 O2 Sat by Pulse Oximetry 97 96 96 05/03/19 23:01 05/03/19 23:31 05/04/19 00:00 Temperature 97.9 F Pulse Rate 80 77 83 Respiratory Rate 11 L 12 14 Blood Pressure 129/74 131/72 137/61 O2 Sat by Pulse Oximetry 96 97 96 05/04/19 00:01 05/04/19 00:44 05/04/19 01:01 Temperature Pulse Rate 89 80 79 Respiratory Rate 14 22 18 Blood Pressure 136/77 129/72 123/71 O2 Sat by Pulse Oximetry 95 95 95 05/04/19 01:31 05/04/19 02:01 05/04/19 02:30 Temperature Pulse Rate 80 76 75 Respiratory Rate 23 22 23 Blood Pressure 126/70 122/70 O2 Sat by Pulse Oximetry 95 96 96 05/04/19 02:31 05/04/19 03:01 05/04/19 03:32 Temperature Pulse Rate 71 69 103 H Respiratory Rate 21 22 31 H Blood Pressure 123/70 123/66 109/78 O2 Sat by Pulse Oximetry 96 95 84 L 05/04/19 04:00 05/04/19 04:38 05/04/19 05:01 Temperature 98.4 F Pulse Rate 80 83 83 Respiratory Rate 12 15 12 Blood Pressure 123/72 123/72 126/72 O2 Sat by Pulse Oximetry 95 95 95 05/04/19 05:31 05/04/19 06:01 05/04/19 07:01 Temperature Pulse Rate 89 75 77 Respiratory Rate 13 11 L 12 Blood Pressure 135/78 123/72 135/79 O2 Sat by Pulse Oximetry 96 94 L 95 05/04/19 07:30 05/04/19 08:00 05/04/19 08:01 Temperature 97.7 F Pulse Rate 88 77 77 Respiratory Rate 16 15 15 Blood Pressure 146/82 131/69 131/69 O2 Sat by Pulse Oximetry 95 95 95 05/04/19 08:29 05/04/19 08:34 05/04/19 09:01 Temperature Pulse Rate 80 78 Respiratory Rate 17 15 Blood Pressure 137/81 142/88 O2 Sat by Pulse Oximetry 97 96 95 05/04/19 09:29 05/04/19 10:01 05/04/19 10:29 Temperature Pulse Rate 84 77 82 Respiratory Rate 19 16 15 Blood Pressure 143/83 134/79 138/78 O2 Sat by Pulse Oximetry 94 L 93 L 94 L 05/04/19 11:01 05/04/19 11:30 05/04/19 12:00 Temperature 99.0 F Pulse Rate 77 82 77 Respiratory Rate 17 21 17 Blood Pressure 134/78 139/84 137/76 O2 Sat by Pulse Oximetry 94 L 94 L 95 05/04/19 12:01 05/04/19 12:29 05/04/19 13:01 Temperature Pulse Rate 77 81 83 Respiratory Rate 17 18 17 Blood Pressure 137/76 136/76 144/75 O2 Sat by Pulse Oximetry 95 95 93 L 05/04/19 13:29 05/04/19 14:01 Temperature Pulse Rate 79 76 Respiratory Rate 15 16 Blood Pressure 138/72 138/79 O2 Sat by Pulse Oximetry 95 95 Intake & Output 05/03/19 05/04/19 05/04/19 19:59 07:59 19:59 Intake Total 850 / 1850 1000 / 1850 400 / 400 Output Total 1310 / 2140 830 / 2140 1480 / 1480 Balance -460 / -290 170 / -290 -1080 / -1080 Intake: Intake, IV Amount 850 / 1650 800 / 1650 400 / 400 Intake, IVPB 200 / 200 Output: Output, Urine Rosado Amount 1050 / 1500 450 / 1500 1225 / 1225 Output, NG Tube 200 / 400 200 / 400 200 / 200 Output, IRMA Drain #1 60 / 240 180 / 240 55 / 55 Other: Percent of Meal Consumed 0 Physical Examination: General: On CAM. Lying in bed with some anxiety noted. HEENT: Trachea midline. Mucus pink and moist. Chest: Symmetrical excursion. Diminished breathing sounds b/l with mild crackles. CVS: S1 S2. Abdomen: Soft. Dressing on the right side of the RUQ is intact. IRMA drain in place. Extremities: Trace pedal edema. Dorsalis pedis diminished b/l. Neuro: Alert. Some disoriented and confused, but easy to be reoriented. Labs and Radiology: Reviewed available labs and radiology values available at time of EMR review. Laboratory Results 04/30/19 05/04/19 05/04/19 21:54 04:27 05:30 WBC 17.53 H RBC 4.16 L Hgb 12.0 L Hct 36.6 L MCV 88.0 MCH 28.8 MCHC 32.8 L RDW Std Deviation 14.9 H Plt Count 102 L MPV 11.8 H Immature Gran % (Auto) 0.2 Neut % (Auto) 93.1 H Lymph % (Auto) 3.3 L Trimble % (Auto) 3.2 Eos % (Auto) 0.1 Baso % (Auto) 0.1 Immature Gran # (Auto) 0.03 Neut # (Auto) 16.35 H Lymph # (Auto) 0.57 L Trimble # (Auto) 0.56 Eos # (Auto) 0.01 Baso # (Auto) 0.01 Segmented Neutrophils 92 H Band Neutrophils 3 H Lymphocytes 2 L Monocytes 3 Specimen Type ARTERIAL Sample Site R RADIAL pH 7.33 L pCO2 50 H pO2 72 HCO3 24.7 Base Excess -0.2 Oxyhemoglobin 93.9 L ABG O2 Sat (Calculated) 16.9 ABG O2 Saturation 96.2 ABG Carboxyhemoglobin 1.50 ABG Methemoglobin 0.8 James Test YES A-a O2 Difference 151.0 Total Hemoglobin 12.8 Lactate 1.10 Liter Flow 10.0 Blood Gas Modality COOL AEROSOL FiO2 % 40.0 Sodium Potassium Chloride Carbon Dioxide Anion Gap BUN Creatinine Estimated GFR/1.73 m2 BUN/Creatinine Ratio Glucose Calculated Osmolality Calcium Total Bilirubin AST ALT Alkaline Phosphatase Creatine Kinase Creatine Kinase Index CK-MB (CK-2) Troponin T High Sens Total Protein Albumin Globulin Albumin/Globulin Ratio Crossmatch See Detail 05/04/19 05/04/19 05/04/19 05:30 05:30 05:30 WBC RBC Hgb Hct MCV MCH MCHC RDW Std Deviation Plt Count MPV Immature Gran % (Auto) Neut % (Auto) Lymph % (Auto) Trimble % (Auto) Eos % (Auto) Baso % (Auto) Immature Gran # (Auto) Neut # (Auto) Lymph # (Auto) Trimble # (Auto) Eos # (Auto) Baso # (Auto) Segmented Neutrophils Band Neutrophils Lymphocytes Monocytes Specimen Type Sample Site pH pCO2 pO2 HCO3 Base Excess Oxyhemoglobin ABG O2 Sat (Calculated) ABG O2 Saturation ABG Carboxyhemoglobin ABG Methemoglobin James Test A-a O2 Difference Total Hemoglobin Lactate Liter Flow Blood Gas Modality FiO2 % Sodium 145 Potassium 4.8 Chloride 109 H Carbon Dioxide 26 Anion Gap 10 BUN 38 H Creatinine 0.8 Estimated GFR/1.73 m2 > 60 BUN/Creatinine Ratio 48 Glucose 124 H Calculated Osmolality 299 Calcium 8.1 L Total Bilirubin 1.72 H AST 88 H ALT 126 H Alkaline Phosphatase 117 Creatine Kinase 376 H Creatine Kinase Index 2.2 CK-MB (CK-2) 8.10 H Troponin T High Sens 728 H* Total Protein 5.4 L Albumin 2.4 L Globulin 3.0 Albumin/Globulin Ratio 0.[address] Leon evaluated and additional note below. Evaluation time in minutes: 34 minutes. Assessment: Acute hypoxic respiratory failure secondary to cholecystectomy. Extubated on 05/03/19. Pulmonary edema, LLL atelectasis and left pleural effusion. Mild worsening. Acute cholecystitis. Laparoscopic converted to open cholecystecotomy on 05/02/2019 Septic shock with gram-negative christopher bacteremia. No pressor needed at this time. Improved. Troponin elevation LFTs elevation Plan: Continue current treatment and supportive care per admitting and other teams on the case. Antibiotics. PRN bronchodilators. Appropriate DVT and GI prophylaxis. Input was appreciated from Admitting MD and other teams on the case. See additional notes by Dr. Leon.
[2019-05-04] MEDS: PROTONIX IV SCH (11:58)
[2019-05-04] MEDS: SODIUM CHLORIDE 0.9% INJ SCH (11:58)
--- NOTE | 2019-05-04 13:53 | PROGRESS NOTE ---
DATE: 05/04/2019 SUBJECTIVE: Today, Mr. Buchanan refers to be doing well. He was successfully extubated yesterday. He still remains in the critical care unit. OBJECTIVE: Vital Signs: Blood pressure is 138/78, pulse of 82, respirations are 15, temperature is 97.7 degrees, patient is saturating 94% on face mask. General Examination: Mr. Buchanan is a 79-year-old, male. He is in bed. No distress. HEENT: Mucosa is pink and moist. Anicteric. Acyanotic. Neck: Supple. Chest: Good air entry bilaterally. A few crackles in the posterior lung christine. Cardiovascular: Regular rate and rhythm. No murmurs, no rubs, no gallops. GI: Abdomen was soft. The right upper quadrant has a surgical incision which is covered with a sterile dressing. The major part of the dressing looks soiled with serosanguineous fluid. The IRMA drain remains in the right upper quadrant. The bottle has serosanguineous fluid in it as well. AUTO PAINTER HELPER: The patient is awake, alert, follows commands. : Thompson catheter is in place. Is and Os: Urine output was 1600. The patient is currently negative balance of 997. Diagnostic Studies: A chest x-ray this morning seems to suggest mild interval pulmonary edema worsening. Laboratory Data: WBC has gone up slightly to 17.52, hemoglobin is 12.0, platelet count of 102,000, 92% of the WBC is segmented neutrophils, only 3% of bands. ABGs have all been reviewed. Chemistry is completely unremarkable. The LFTs are trending down. Current Medications: Have all been reviewed and no changes. ASSESSMENT: 1. Acute gallstone cholecystitis complicated with septic shock with Escherichia coli bacteremia, sepsis-induced encephalopathy, sepsis-induced type 2 myocardial infarction, and shock liver, and respiratory failure. The patient looks remarkably stable. He is not on any pressor and h was extubated yesterday. His blood culture shows Escherichia coli which we think is coming from the cholecystitis. He is currently on meropenem. I think he can be transitioned to Rocephin which is one daily dosing. We will, however, defer antimicrobial management to the infectious disease on board. 2. Acute calculous cholecystitis. The patient is status post laparoscopic, converted to open cholecystectomy. Today is day 2. Manpreet-Guido drain is still in place. Surgery is on board. 3. Respiratory failure after abdominal surgery. The patient has successfully been extubated. 4. Troponin elevation secondary to demand mismatch. Cardiology is on board. 5. Pulmonary edema. The patient has been given a dose of Lasix today. We are going to continue to an keep eye on this. PLAN: In general, I think Mr. Buchanan is doing a lot better. He is hemodynamically stable. He is more conversational today. He was successfully extubated yesterday. I think he still would benefit from a day more of the ICU care. Will be pending on surgery recommendation as to when he can be fed. We are going to continue with the current antimicrobial coverage until the patient is evaluated by ID today. Hopefully, we can make some changes to narrow down the antimicrobial coverage. cc: Eder Ramos MD MTDChance
[2019-05-04] MEDS: MORPHINE IV PRN ×2 (14:13→19:57)
[2019-05-04] MEDS: ROCEPHIN 2 GM in NS 50 ML IV SCH (16:29)
[2019-05-04] MEDS: ZYVOX 600 MG/D5W 600 MG/300 ML IVPB IV SCH (16:29)
--- NOTE | 2019-05-04 22:29 | INFECTIOUS DISEASE PROGRESS NO ---
DATE: 05/04/2019 PRESENT ILLNESS: The patient has an E coli bacteremia secondary to acute cholecystitis. He may be developing basilar pneumonia. MEDICATIONS: The patient was on meropenem, and I switched him to Rocephin, and also I have added Zyvox. PHYSICAL EXAMINATION: Vital Signs: Temperature is 99 degrees, pulse 76, respirations 16, blood pressure 138/79. General: This is an ill-appearing elderly male. He is more talkative today, and he seems somewhat confused. Head, eyes, ears, nose and throat: He can hear my spoken words. He is able to see near objects. I did not see any white patches in his mouth. Patient has a nasogastric tube in place. There is no drainage from his nose or ears. Neck: No pain with movement. Lungs: Clear to auscultation. Cardiovascular: Heart rate is regular. Abdomen: Soft. It was not tender to light palpation. The patient's incision has a large dressing over it. Also a drainage tube is in place through the abdominal wall. Neurologic: The patient is awake. He can move his extremities. Sometimes he seems a little confused. He does not have a tremor. LAB AND X-RAY: Patient's blood culture is growing E coli. Chest x-ray shows bibasilar infiltrates/atelectasis. Also, pulmonary edema is present. Pathology of the patient's gallbladder showed acute on chronic cholecystitis with ulceration and necrosis. ASSESSMENT AND PLAN: The patient is status post cholecystectomy for cholecystitis with necrosis. He may be developing a bibasilar infiltrate due to pneumonia. His white count did go up today, and therefore I am concerned that he may be in fact developing pneumonia. I have stopped meropenem, and I have placed the patient on Rocephin to which the Escherichia coli is susceptible, and I have added Zyvox in case the patient is developing a pneumonia with a methicillin-resistant Staphylococcus aureus. COMORBIDITIES: The patient is elderly. During this admission, he had a myocardial infarction. He has gastroesophageal reflux disease and pulmonary edema. cc: Quincy Padilla MD
[2019-05-05] MEDS: DILAUDID IV PRN (00:02)
[2019-05-05] MEDS: MORPHINE IV PRN ×4 (03:02→20:54)
[2019-05-05] MEDS: ZYVOX 600 MG/D5W 600 MG/300 ML IVPB IV SCH ×2 (03:02→16:08)
[2019-05-05 04:53] LABS: ALLEN TEST YES; BE 5.6 mmoll (-3.0-3.0); BLOOD TYPE ARTERIAL; HCO3-(ACT) 29.2 mmoll (20.0-26.0); METHB 0.7 % (0.0-1.5); O2(CT) 16.5 mL/dL (15.0-23.0); O2HB 95.1 % (95.0-99.0); PCO2(98.6) 45 mmHg (35-45); PO2(98.6) 72 mmHg (60-100); SAMPLE BLOOD; SAO2 98.1 % (95.0-100.0); THB 12.3 g/dL (11.5-17.4); pH(98.6) 7.44 (7.35-7.45)
[2019-05-05 04:54] LABS: MODALITY COOL AEROSOL
[2019-05-05 06:07] LABS: BASO# 0.02 X1000 (0.0-0.2); BASO% 0.1 % (0.0-0.8); EOS# 0.03 X1000 (0.0-0.7); EOS% 0.2 % (0.0-10.0); HEMATOCRIT 36.2 % (42.0-52.0); HEMOGLOBIN 11.8 g/dL (14.0-18.0); IMM GRAN# 0.09 X1000 (0.0-0.04); IMM GRAN% 0.6 % (0.0-0.5); LYMPH# 1.05 X1000 (1.2-3.4); LYMPH% 6.6 % (20.5-51.1); MCH 28.8 PG (27-31); MCHC 32.6 g/dL (33-37); MCV 88.3 FL (81-99); MONO# 0.92 X1000 (0.11-0.59); MONO% 5.8 % (1.7-9.3); MPV 11.9 FL (7.4-10.4); NEUT# 13.71 X1000 (1.4-6.5); NEUT% 86.7 % (42.2-75.2); PLT 105 X1000 (130-400); RDW 14.3 % (11.5-14.5); WBC 15.82 X1000 (4.8-10.8)
[2019-05-05 06:26] LABS: AGAP 12; ALB/GLOB RATIO 0.9; ALBUMIN 2.4 g/dL (3.5-5.0); ALKALINE PHOSPHATASE 117 U/L (32-122); BUN 32 mg/dL (8-22); CALCIUM 7.9 mg/dL (8.8-10.2); CHLORIDE 108 mmol/L (98-107); COSMO 298; CREATININE 0.7 mg/dL (0.7-1.2); ESTIMATED GFR > 60; GLUCOSE 111 mg/dL (70-104); GOT 56 U/L (10-34); GPT 92 U/L (10-44); POTASSIUM 3.8 mmol/L (3.5-5.1); SODIUM 146 mmol/L (136-145); TCO2 26 mmol/L (25-35); TOTAL BILIRUBIN 1.28 mg/dL (0.20-1.00); TOTAL PROTEIN 5.2 g/dL (6.3-8.3)
--- NOTE | 2019-05-05 07:08 | Diag Imaging Result Doc PS360 ---
EXAM: CHEST-PORTABLE 05/05/2019 HISTORY: pneumonia TECHNIQUE: AP portable at 0459 COMMENT: There is an NG tube which passes below the diaphragm into the distal stomach. There is alveolar opacity in the retrocardiac left lower lobe and there may be a small left pleural effusion. The latter is slightly worse than on 05/04/2019. IMPRESSION: Atelectasis versus pneumonia left lower lobe. Left pleural effusion. Electronically signed by Saad Cerda 05/05/2019 7:05 AM
--- NOTE | 2019-05-05 07:31 | EKG Report ---
Test Performed on : 05/05/2019 06:28:49 AM Test Reason : non ST SC Blood Pressure : / mmHG Vent. Rate : 074 BPM Atrial Rate : 074 BPM P-R Int : 130 ms QRS Dur : 066 ms QT Int : 424 ms P-R-T Axes : 022 -23 031 degrees QTc Int : 470 ms Normal sinus rhythm. Nonspecific ST and T wave abnormality Prolonged QT Abnormal ECG When compared with ECG of 04-MAY-2019 04:46, (Unconfirmed) T wave inversion now evident in Anterior leads Confirmed by Manpreet MITCHELL, Rachid Napoles ([id number]) on 05/05/2019 7:03:01 PM
[2019-05-05 07:42] LABS: LYMPHS 4 % (21-51); MONO 12 % (1-9); SEGS 82 % (42-75)
[2019-05-05] MEDS: PROTONIX IV SCH (11:26)
--- NOTE | 2019-05-05 12:24 | GENERAL SURGERY PROGRESS NOTE ---
DATE: 05/05/2019 SUBJECTIVE: Patient seems to be doing okay per the nursing staff. He is a little bit confused but has been doing okay. OBJECTIVE: Vital Signs: Patient is currently afebrile. His vital signs are stable. General: No acute distress. Cardiovascular: Regular rate and rhythm. Lungs: Grossly clear. Abdomen: Soft, appropriately tender. IRMA drain in place with serosanguineous output. LABORATORY: White blood cell count is 15, which is down. Hematocrit 36, which is stable. ABG reviewed, CMP reviewed from yesterday. His liver function tests are improving. ASSESSMENT AND PLAN: A 79-year-old gentleman postoperative day #3 from open cholecystectomy. Postoperative state. At this time, he is doing okay. We will keep his Manpreet-Guido drain in place. We will clamp his nasogastric tube and start him on a clear liquid diet. We will continue to monitor. We will keep him on antibiotics for his bacteremia. He is growing Escherichia coli currently, likely from his gallbladder. We will continue to monitor and support him. cc: Tye Fernando MD
--- NOTE | 2019-05-05 13:03 | CARDIOLOGY PROGRESS NOTE ---
DATE: 05/05/2019 CHIEF COMPLAINT: Confusion, weakness, shortness of breath. SUBJECTIVE: Mr. Buchanan is complaining of pain in the incision. Otherwise, he is more with it. His chest x-ray today shows atelectasis versus pneumonia left lower lobe. Electrocardiogram actually today done at 6:28 a.m. looks much better than previous with a minor nonspecific T wave flattening. His other studies, his sodium is 146, potassium is 3.8, BUN is 32, creatinine 0.7. He is not having chest pain. He has an NG tube in place. OBJECTIVE: Vital signs: Blood pressure is 156/86, temperature 98.6, pulse 84, respirations 24. General: He is awake, alert, oriented. HEENT: Unremarkable. Chest: Diminished breath sounds at the bases. Heart: Sounds are regular and rhythmic. No gallop or murmur. Abdomen: Nontender. Extremities: Show edema. Neurologic exam: Follows commands, moves 4 extremities. IMPRESSION: 1. A patient who presented toxic, septic, positive blood culture for Escherichia coli. He had acute cholecystitis and this has been removed. 2. Small non-ST myocardial infarction. 3. Background of coronary atherosclerosis. 4. Hypertension. RECOMMENDATIONS: At this time, we are going to put him back on HUGH inhibitors and I am going to start with captopril and see how he does with that. We will put him on a tiny dose of beta- maria alejandra. We will see how he does over the weekend. I believe he is bound to get better over the course of the ensuing few days. Will continue to follow. cc: Luis Fernando Cage MD
--- NOTE | 2019-05-05 13:25 | PROGRESS NOTE ---
DATE: 05/05/2019 SUBJECTIVE: This morning, Mr. Buchanan referred to be doing well. Both and the daughter were at the bedside with him at the time of the encounter. He was trying to use the bed marquez. OBJECTIVE: Vital signs: Blood pressure is 156/86, pulse of 76, respirations 24. Patient was saturating 96%. Temperature is 98.5 degrees. General: Mr. Buchanan is a 79-year-old male. He was in bed in no distress. Still has some supplemental nasal cannula. Neck: Was supple. No JVD and no carotid bruit. Respiratory: There is good air entry bilateral. No crackles. No rhonchi. No accessory muscle use. Cardiovascular: Regular rate and rhythm. No murmurs, no rubs, no gallops/ Gastrointestinal: Abdomen is soft, nontender. There is a dressing over the right upper quadrant surgical incision. It was not soiled at this time. The IRMA drain is still in place. Central nervous system: Patient is awake, alert, oriented. Genitourinary: This is a Thompson catheter still in place. LABORATORY DATA: WBC is down to 15.82, hemoglobin is 11.8, platelet count of 105,000. Chemistry is also reviewed. Sodium 147, potassium is 3.8, chloride is 108. IMAGING STUDIES: Including a chest x-ray, chest x-ray shows atelectasis versus pneumonia in the left lower lobe, a left pleural effusion. Repeat blood cultures were done today. ASSESSMENT AND PLAN: 1. Acute gallstone cholecystitis complicated with septic shock with Escherichia coli bacteremia, sepsis-induced encephalopathy, sepsis-induced type 2 myocardial infarction and shock liver, improved. 2. Acute hypoxemic respiratory failure. Patient has successfully been extubated, is now on supplemental oxygen. 3. Acute calculous cholecystitis. Patient is status post laparoscopic converted to an open cholecystectomy. Today is day 3 postop. IMRA drain is still in place. Surgery is on board. NG tube has been clamped and patient has been started on ice chips and clears. He is trying to have a bowel movement. I think hopefully today we might be able to take the NG tube out and advance his diet. 4. Elevated troponin secondary to demand mismatch. 5. Pulmonary edema with possible superimposed left lower lobe pneumonia. Patient is on antimicrobial therapy. Zyvox has been added to cover for possible Methicillin-resistant Staphylococcus aureus. 6. Escherichia coli bacteremia, presumably from the cholecystitis. The patient was initially on meropenem. This has been changed to Rocephin since yesterday. Repeat blood cultures were done this morning. We will follow up accordingly. 7. Generalized weakness and deconditioning. We will consult Physical Therapy. cc: Eder Ramos MD
[2019-05-05] MEDS: CAPOTEN PO SCH ×2 (14:58→20:53)
[2019-05-05] MEDS: ROCEPHIN 2 GM in NS 50 ML IV SCH (14:59)
--- NOTE | 2019-05-05 15:55 | INFECTIOUS DISEASE PROGRESS NO ---
DATE: 05/05/2019 PRESENT ILLNESS: Mr. Buchanan has an Escherichia coli bacteremia due to an acute cholecystitis. He is status post open cholecystectomy. There also is a possible pneumonia versus atelectasis. MEDICATIONS: Today is day 1 of ceftriaxone 2 g IV daily and Zyvox 600 mg IV every 12 hours. PHYSICAL EXAMINATION: Vital Signs: Temperature is 98.5 degrees, pulse rate 79, respiratory rate 22, blood pressure 156/75, O2 saturation is 95% on 40% cool air soft face mask. General: This is a mildly confused, elderly gentleman. He is lying in the bed currently in no acute distress. HEENT: Atraumatic, normocephalic. Oral mucous membranes are pink and moist. Conjunctivae are pink. Neck: Supple. Trachea is midline. Cardiovascular: Heart rate and rhythm are regular. Normal sinus rhythm on the monitor. Respiratory: Lung sounds are clear in the mid and upper lobes. Diminished in the bases. No work of breathing is noted. Abdomen: Soft and obese with a dressing covering the majority of the abdomen. There is a IRMA drain to the right side with some serosanguineous drainage noted in the bulb. Bowel sounds are audible. Integumentary: Skin is warm, and dry. Neurologic: The patient is awake, alert, and mildly confused. There is no tremor. He is able to move all extremities with generalized weakness. LABORATORY AND X-RAY: Today his white count is 15.82, hemoglobin 11.8, platelet count 105,000. This morning on a 40% FiO2, his pH was 7.44, pCO2 45, PO2 72. Creatinine is 0.7, estimated GFR is greater than 60. Total bilirubin is 1.28. AST 56, ALT 92, alkaline phosphatase 117. His blood cultures on admission both grew Escherichia coli. This morning a repeat set were drawn and are pending. Chest x-ray today shows atelectasis versus pneumonia to the left lower lobe. ASSESSMENT AND PLAN: Mr. Buchanan is being treated for a bacteremia and possible pneumonia. His leukocytosis has improved somewhat since yesterday. For now we will continue the Rocephin and Zyvox as ordered. These plans have been discussed with and recommended by Dr. Padilla. COMORBIDITIES: For Mr. Buchanan include that he is elderly with gastroesophageal reflux disease, pulmonary edema, and non ST elevated myocardial infarction on this admission. Dictated by ASHLEY Dumas for Quincy Padilla MD cc: Quincy Padilla MD [facility]
[2019-05-05] MEDS: LOPRESSOR PO SCH (20:53)
--- NOTE | 2019-05-05 21:15 | PULMONOLOGY PROGRESS NOTE ---
DATE: 05/05/2019 SUBJECTIVE: The patient is awake, alert, and conversant. He has some audible rhonchi present. He is without specific complaints. He is passing gas. OBJECTIVE: Vital Signs: The patient has been afebrile for the last 24 hours. Blood pressure 149/77, heart rate 72, respiratory rate 18, oxygen saturation 96%. HEENT: Pupils are equal and reactive. Oropharynx is clear. There are crackles at the left base. Cardiac exam: S1, S2. Abdomen: Soft with diminished bowel sounds. Extremities: Without edema. IMPRESSION: A 79-year-old with: 1. Acute hypoxemic respiratory failure. 2. Acute cholecystitis with gram-negative bacteremia. 3. Left-sided pleural effusion. 4. Left basilar pneumonia. PLAN: 1. Continue oxygen for hypoxemic respiratory failure. 2. Continue bronchial hygiene. Incentive spirometry will be added to his treatment regimen. 3. Continue antibiotics per Infectious Disease. 4. Mobilize/ambulate as soon as possible. cc: Miles Mcdonald MD
[2019-05-06] MEDS: MORPHINE IV PRN ×4 (01:22→21:05)
[2019-05-06] MEDS: ZYVOX 600 MG/D5W 600 MG/300 ML IVPB IV SCH ×2 (02:58→15:13)
[2019-05-06 04:32] LABS: ALLEN TEST YES; BE -5.8 mmoll (-3.0-3.0); BLOOD TYPE ARTERIAL; HCO3-(ACT) 20.4 mmoll (20.0-26.0); O2(CT) 18.1 mL/dL (15.0-23.0); O2HB 95.9 % (95.0-99.0); PO2(98.6) 117 mmHg (60-100); SAMPLE BLOOD; SAO2 98.6 % (95.0-100.0); THB 13.3 g/dL (11.5-17.4)
[2019-05-06 05:03] LABS: MODALITY CANNULA; PCO2(98.6) 63 mmHg (35-45); pH(98.6) 7.18 (7.35-7.45)
[2019-05-06 05:49] LABS: BASO# 0.02 X1000 (0.0-0.2); BASO% 0.2 % (0.0-0.8); EOS# 0.05 X1000 (0.0-0.7); EOS% 0.5 % (0.0-10.0); HEMATOCRIT 38.3 % (42.0-52.0); HEMOGLOBIN 12.6 g/dL (14.0-18.0); IMM GRAN# 0.26 X1000 (0.0-0.04); IMM GRAN% 2.7 % (0.0-0.5); LYMPH# 0.98 X1000 (1.2-3.4); MCH 28.9 PG (27-31); MCHC 32.9 g/dL (33-37); MCV 87.8 FL (81-99); MONO# 0.96 X1000 (0.11-0.59); MONO% 9.8 % (1.7-9.3); MPV 11.8 FL (7.4-10.4); NEUT# 7.53 X1000 (1.4-6.5); NEUT% 76.8 % (42.2-75.2); PLT 139 X1000 (130-400); RBC 4.36 XMIL (4.7-6.1); RDW 13.8 % (11.5-14.5)
[2019-05-06 06:10] LABS: AGAP 11; ALB/GLOB RATIO 0.9; ALBUMIN 2.4 g/dL (3.5-5.0); ALKALINE PHOSPHATASE 99 U/L (32-122); BUN 23 mg/dL (8-22); CALCIUM 7.7 mg/dL (8.8-10.2); CHLORIDE 104 mmol/L (98-107); COSMO 288; CREATININE 0.6 mg/dL (0.7-1.2); ESTIMATED GFR > 60; GLUCOSE 119 mg/dL (70-104); GOT 34 U/L (10-34); GPT 66 U/L (10-44); POTASSIUM 3.4 mmol/L (3.5-5.1); SODIUM 142 mmol/L (136-145); TCO2 27 mmol/L (25-35); TOTAL BILIRUBIN 1.43 mg/dL (0.20-1.00)
[2019-05-06] MEDS: CAPOTEN PO SCH ×3 (06:51→21:06)
--- NOTE | 2019-05-06 08:15 | Diag Imaging Result Doc PS360 ---
EXAM: CHEST-PORTABLE INDICATION: pneumonia TECHNIQUE: One view COMPARISON: 05/05/2019 FINDINGS: There has been interval removal of the NG tube. The retrocardiac opacity and questionable small left effusion are unchanged. No new consolidation is identified. Cardiac silhouette is stable. IMPRESSION: Interval removal of the NG tube. Stable chest, otherwise. Electronically signed by Gucci Johnson 05/06/2019 8:12 AM
--- NOTE | 2019-05-06 08:37 | EKG Report ---
Test Performed on : 05/06/2019 06:22:55 AM Test Reason : non ST MS Blood Pressure : / mmHG Vent. Rate : 070 BPM Atrial Rate : 070 BPM P-R Int : 152 ms QRS Dur : 074 ms QT Int : 440 ms P-R-T Axes : 031 -19 068 degrees QTc Int : 475 ms Normal sinus rhythm. ST & T wave abnormality, consider anterior ischemia Prolonged QT Abnormal ECG When compared with ECG of 05-MAY-2019 06:28, No significant change was found Confirmed by Manpreet MITCHELL, Rachid Napoles ([id number]) on 05/07/2019 6:55:22 PM
[2019-05-06] MEDS ORDERED: LASIX IV ONE (08:40)
[2019-05-06] MEDS: XANAX PO SCH ×2 (10:11→21:06)
[2019-05-06] MEDS: LOPRESSOR PO SCH ×2 (10:11→21:06)
[2019-05-06] MEDS: PROTONIX IV SCH (12:00)
[2019-05-06] MEDS: SODIUM CHLORIDE 0.9% INJ SCH (12:00)
--- NOTE | 2019-05-06 13:23 | PROGRESS NOTE ---
DATE: 05/06/2019 SUBJECTIVE: This morning Mr. Buchanan refers to be doing well. NG tube is out. OBJECTIVE: Vital signs: Blood pressure is 145/85, pulse of 74, respirations 15, temperature is 98.1. General: Mr. Buchanan is a 79-year-old elderly male. He is in bed in no distress. HEENT: Mucosa is pink and moist. Anicteric. Acyanotic. Neck: Supple. Chest: Clear to auscultation. There was no crepitations. No rhonchi. Cardiovascular: Regular rate and rhythm. No murmurs, no rubs, no gallops. GI: Abdomen is soft, distended. Bowel sounds present. There is a sterile dressing over the right upper quadrant on the surgical incision site. IRMA drain is still in place. The bottle has serosanguineous fluid. 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 He remains with some essential tremor. LABORATORY DATA: WBC is normalized 9.80, hemoglobin is 12.6, platelet count of 138,000. Chemistry is also reviewed and unremarkable, except potassium of 3.4. The patient's AST has normalized. ALT is still trending down. ASSESSMENT: 1. Acute gallstone cholecystitis complicated with septic shock with Escherichia coli bacteremia, sepsis induced encephalopathy, shock liver and respiratory failure, improved. 2. Acute hypoxemic respiratory failure after abdominal surgery. The patient was successfully extubated. He is currently on supplemental oxygen. 3. Acute calculous cholecystitis. The patient is status post laparoscopic converted to an open cholecystectomy. Today is day 4. IRMA drain is still in place. Surgery is on board. NG tube has been removed and the patient has been started on clears. 4. Elevated troponin secondary to demand mismatch. An echocardiogram, which has been done, shows ejection fraction of 55%. No wall motion abnormality. 5. Hypertension. The patient has been started on captopril and metoprolol by Cardiology. 6. Left lower lobe infiltrate concerning for pneumonia. The patient is on Zyvox and Rocephin. 7. Coli bacteremia. Repeat blood cultures have been done. We are still waiting on the results. 8. Generalized weakness and deconditioning. Physical therapy has been is on board. 9. Anemia of acute blood loss. Mr. Buchanan is status post 4 packed red blood cell transfusions, 1 fresh frozen plasma and 1 platelet. Hemoglobin and hematocrit are fairly stable and he is not showing anymore signs of bleeding. 10. Essential tremor. We will start the patient back on his home medications, which is Xanax. PLAN: In general, I think Mr. Buchanan is doing well. He is gradually getting better. Labs look better. NG tube is removed and he is on clears. It is documented that he had multiple bowel movements this morning. We will wait on surgery to see if they want to advance his diet. I think Mr. Buchanan can potentially be did transfer to the surgical floor if it is okay with all the other providers taking care of him. cc: Eder Ramos MD
--- NOTE | 2019-05-06 13:54 | GENERAL SURGERY PROGRESS NOTE ---
DATE: 05/06/2019 SUBJECTIVE: The patient has been up and moving around. He did have a critical value on his ABG reported to the hospitalist. He has been placed on BiPAP since then. OBJECTIVE: Vital Signs: Patient is currently afebrile. His vital signs are stable. General: Somewhat agitated. Cardiovascular: Regular rate and rhythm. Lungs: Grossly clear with some coarse sounds noted from the CPAP. Abdomen: Soft, appropriately tender. IRMA drain with serosanguineous output. LABORATORY: White blood cell count is 9, which is down. Hematocrit is 38, which is stable. Platelet count 139,000, which is up. ABG reviewed and noted. Bilirubin, AST and ALT are trending down. ASSESSMENT AND PLAN: A 79-year-old gentleman status post open cholecystectomy, currently postoperative day #4. Postoperative state at this time continue current treatment. Continue Manpreet-Guido drain. We will need to monitor his respiratory status. We did start him on clear liquid diet, but we will need to hold until his respiratory status is stabilized. cc: Tye Fernando MD
[2019-05-06 14:10] LABS: ALLEN TEST YES; BE 7.6 mmoll (-3.0-3.0); BLOOD TYPE ARTERIAL; HCO3-(ACT) 30.8 mmoll (20.0-26.0); METHB 1.3 % (0.0-1.5); O2(CT) 16.8 mL/dL (15.0-23.0); PCO2(98.6) 38 mmHg (35-45); PO2(98.6) 68 mmHg (60-100); SAMPLE BLOOD; SAO2 97.2 % (95.0-100.0); THB 12.7 g/dL (11.5-17.4); pH(98.6) 7.52 (7.35-7.45)
[2019-05-06 14:11] LABS: MODALITY CANNULA
[2019-05-06] MEDS: ROCEPHIN 2 GM in NS 50 ML IV SCH (15:15)
[2019-05-06] MEDS ORDERED: BLISTEX MEDICATED BERRY LIP BALM TOP PRN (15:54)
--- NOTE | 2019-05-06 22:45 | PULMONOLOGY PROGRESS NOTE ---
DATE: 05/06/2019 SUBJECTIVE: The patient is awake, alert, and conversant. He is currently sitting on a bedside commode attempting to have a bowel movement. OBJECTIVE: Vital Signs: The patient has been afebrile for the last 24 hours. Blood pressure 136/82, heart rate 79, respiratory rate 18, oxygen saturation 96% on 2 L per nasal cannula. HEENT: Pupils are equal and reactive. Oropharynx appears clear. Neck: Supple. Chest: Reveals occasional rhonchi bilaterally. Cardiac: S1, S2. Abdomen: Soft with diminished bowel sounds. Extremities: Reveal trace edema. LABORATORIES: Chest x-ray reveals stable small effusion/infiltrate. White blood count 9.80, hemoglobin 12.6, platelet count 139,000. Sodium 142, potassium 3.4, chloride 104, bicarbonate 27, BUN 23, creatinine 0.6. Arterial blood gas reveals a pH 7.18, pCO2 of 63, PO2 of 117. IMPRESSION: A 79-year-old with: 1. Acute hypoxemic respiratory failure. The patient has hypercapnic respiratory failure this morning possibly related to medications. 2. Acute cholecystitis with gram-negative bacteremia. 3. Left-sided effusion. 4. Left basilar pneumonia. PLAN: 1. Continue oxygen for hypoxemic respiratory failure. The patient transiently was on BiPAP this morning. 2. Adjust pain medications. His morphine dose was decreased by 1/2 and Dilaudid was discontinued. 3. Follow up arterial blood gas this afternoon. 4. Continue to mobilize patient as tolerated. 5. Continue antibiotics per Infectious Disease. cc: Miles Mcdonald MD
[2019-05-07] MEDS: ZYVOX 600 MG/D5W 600 MG/300 ML IVPB IV SCH ×2 (03:39→15:03)
[2019-05-07] MEDS: MORPHINE IV PRN ×5 (04:18→21:09)
[2019-05-07 05:13] LABS: ALLEN TEST YES; BE 6.8 mmoll (-3.0-3.0); BLOOD TYPE ARTERIAL; HCO3-(ACT) 30.2 mmoll (20.0-26.0); METHB 0.9 % (0.0-1.5); O2(CT) 11.2 mL/dL (15.0-23.0); O2HB 95.5 % (95.0-99.0); PCO2(98.6) 37 mmHg (35-45); PO2(98.6) 71 mmHg (60-100); SAMPLE BLOOD; SAO2 98.2 % (95.0-100.0); THB 8.3 g/dL (11.5-17.4); pH(98.6) 7.52 (7.35-7.45)
[2019-05-07 05:19] LABS: MODALITY CANNULA
[2019-05-07] MEDS: CAPOTEN PO SCH ×2 (06:16→20:14)
[2019-05-07 06:36] LABS: BASO# 0.02 X1000 (0.0-0.2); BASO% 0.3 % (0.0-0.8); EOS% 1.3 % (0.0-10.0); HEMATOCRIT 38.6 % (42.0-52.0); HEMOGLOBIN 12.5 g/dL (14.0-18.0); IMM GRAN% 5.3 % (0.0-0.5); LYMPH# 0.88 X1000 (1.2-3.4); LYMPH% 11.7 % (20.5-51.1); MCH 28.6 PG (27-31); MCHC 32.4 g/dL (33-37); MCV 88.3 FL (81-99); MONO# 0.93 X1000 (0.11-0.59); MONO% 12.3 % (1.7-9.3); MPV 11.1 FL (7.4-10.4); NEUT# 5.21 X1000 (1.4-6.5); NEUT% 69.1 % (42.2-75.2); PLT 191 X1000 (130-400); RBC 4.37 XMIL (4.7-6.1); RDW 13.7 % (11.5-14.5); WBC 7.54 X1000 (4.8-10.8)
[2019-05-07 06:54] LABS: AGAP 11; ALB/GLOB RATIO 0.9; ALBUMIN 2.4 g/dL (3.5-5.0); ALKALINE PHOSPHATASE 90 U/L (32-122); BUN 19 mg/dL (8-22); CALCIUM 7.9 mg/dL (8.8-10.2); CHLORIDE 100 mmol/L (98-107); COSMO 280; CREATININE 0.6 mg/dL (0.7-1.2); ESTIMATED GFR > 60; GLUCOSE 136 mg/dL (70-104); GOT 26 U/L (10-34); GPT 49 U/L (10-44); POTASSIUM 3.1 mmol/L (3.5-5.1); SODIUM 138 mmol/L (136-145); TCO2 27 mmol/L (25-35); TOTAL BILIRUBIN 1.26 mg/dL (0.20-1.00); TOTAL PROTEIN 5.1 g/dL (6.3-8.3)
[2019-05-07 07:18] LABS: LYMPHS 18 % (21-51); MONO 6 % (1-9); SEGS 74 % (42-75)
--- NOTE | 2019-05-07 07:33 | Diag Imaging Result Doc PS360 ---
EXAM: CHEST-PORTABLE HISTORY: pneumonia TECHNIQUE: Chest single view COMPARISON: 05/06/2019 FINDINGS: Poor inspiratory effort. There is atelectasis and or an infiltrate in the left base with a small left pleural effusion. Heart is mildly prominent. No pulmonary edema. IMPRESSION: Stable chest Electronically signed by Filippo Fish 05/07/2019 7:31 AM
[2019-05-07] MEDS: LOPRESSOR PO SCH ×2 (09:08→20:13)
[2019-05-07] MEDS: XANAX PO SCH ×2 (09:08→20:13)
--- NOTE | 2019-05-07 09:50 | GENERAL SURGERY PROGRESS NOTE ---
DATE: 05/07/2019 SUBJECTIVE: The patient seems to be doing okay. His respiratory status has been stable. His blood pressure has been actually a little bit high. He has tolerated his diet. He has had bowel movements. OBJECTIVE: Vital Signs: The patient is currently afebrile. His vital signs are stable. General: No acute distress. Cardiovascular: Regular rate and rhythm. Lungs: Grossly clear. Abdomen: Soft. Appropriately tender. IRMA drain in place with serosanguineous output. LABORATORY DATA: White blood count is normal, hematocrit is stable, platelet count is 191,000. ABG reviewed. Remainder of labs reviewed. His bilirubin is trending down. His AST and ALT are also trending down. His alkaline phosphatase has never really been elevated. ASSESSMENT AND PLAN: A 79-year-old gentleman status post open cholecystectomy. Postoperative state. At this time, he is currently postoperative day #5. Will continue Manpreet- Guido drain. I think we can advance him to a low-fat diet. If okay with other physicians, may consider transfer to the [facility], if a room is available. cc: Tye Fernando MD
--- NOTE | 2019-05-07 10:08 | INFECTIOUS DISEASE PROGRESS NO ---
DATE: 05/07/2019 PRESENT ILLNESS: The patient has an Escherichia coli bacteremia which originated from his acute cholecystitis. He is status post cholecystectomy. Patient also has a left lower lobe pneumonia versus atelectasis. MEDICATIONS: This is day 3 of Rocephin with day 1 being the first day that the repeat blood cultures were negative. The patient also is on Zyvox which also is the third day of treatment with that agent. PHYSICAL EXAMINATION: Vital Signs: Temperature is 98.3 degrees, pulse 81, respirations 18, blood pressure 174/93. General: This is an ill-appearing, somewhat confused, elderly male. He is in no acute distress, however. Head, Eyes, Ears, Nose, and Throat: He can hear my spoken words and see near objects. He does not have any white patches in his mouth. Neck: No stiffness and no pain with movement of the neck. Lungs: Clear to auscultation. Cardiovascular: Heart rate is regular. Abdomen: The patient has a IRMA drain in the right side. It is draining a serosanguineous fluid. The abdomen is soft and it is not tender with light palpation. Neurologic: The patient is awake. At times, he seems mildly confused. He is able to move his extremities but he is weak. LAB AND X-RAY: Chest x-ray shows left lower lobe infiltrate and/or atelectasis. The patient's CBC shows a white count of 7540, hemoglobin 12.5, and platelet count is 191,000. Blood gases show a pH of 7.52, a PO2 of 71, a pCO2 of 37. Creatinine is 0.6. GFR is greater than 60. ALT is 49. ASSESSMENT AND PLAN: The patient has bacteremia and possible pneumonia. I am going to continue Rocephin and Zosyn. COMORBIDITIES: The patient is elderly. He has just had a cholecystectomy. He has gastroesophageal reflux disease, pulmonary edema, and a myocardial infarction. cc: Quincy Padilla MD
--- NOTE | 2019-05-07 10:34 | PROGRESS NOTE ---
DATE: 05/07/2019 SUBJECTIVE: This morning, Mr. Buchanan refers to be doing well. was at the bedside at the time of the encounter. OBJECTIVE: Vital Signs: Blood pressure is 167/97, pulse of 77, respirations 23. General: Mr. Buchanan is a 79-year-old, male. He is in bed. No distress. Mucosa is pink and moist. Anicteric. Acyanotic. Neck: Supple. Chest: Good air entry bilaterally. There are no crepitations, no rhonchi. Cardiovascular: Regular rate and rhythm. There are no murmurs, no rubs, no gallops. GI: Abdomen is soft. Bowel sounds present. There is sterile dressing over the right upper quadrant surgical incision. IMRA drain is in place. The bottle has some serosanguineous fluid, but also with some greenish tinge to it. 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 He does have some essential tremor. IMAGING AND LABORATORY DATA: Laboratory data has been reviewed. WBC is 7.54, hemoglobin is 12.5, platelet count of 191,000. Chemistry is reviewed and is unremarkable. Chest x-ray this morning shows no pulmonary edema, atelectasis and/or infiltrate in the left base. ASSESSMENT: 1. Acute gallstone cholecystitis complicated with septic shock, Escherichia coli bacteremia, sepsis-induced encephalopathy, shock liver, and respiratory failure. 2. Acute hypoxemic respiratory failure after abdominal surgery. The patient was initially intubated, has successfully been extubated. He is currently on supplemental oxygen. 3. Acute calculous cholecystitis. The patient is status post laparoscopic converted to an open cholecystectomy. Today is day 5. There is a Manpreet-Guido drain still in place. Surgery is on board. The patient has been started on a diet. 4. Elevated troponin secondary to demand mismatch. Cardiology is on board. 5. Uncontrolled hypertension. Will continue titrating his medications. 6. Left lower lobe infiltrate concerning for pneumonia. The patient is on Zyvox and Rocephin. 7. Escherichia coli bacteremia. Repeat blood cultures have been negative. The patient is on Rocephin. 8. Anemia of acute blood loss. The patient is status post 4 packed red blood cells transfusion. Hemoglobin and hematocrit are stable. 9. Essential tremor. Noted. The patient refers that he was using Xanax for this, so he has been started back on his Xanax at a lower dose. 10. Generalized weakness and deconditioning. Physical Therapy has been consulted. In general, I think Mr. Buchanan is doing well. His pH and pCO2 have normalized in repeated sampling. He is still on supplemental oxygen. Will continue with the current antimicrobial therapy. Blood pressure medications have been up titrated by Cardiology. cc: Eder Ramos MD
[2019-05-07] MEDS: PROTONIX IV SCH (13:30)
[2019-05-07] MEDS: SODIUM CHLORIDE 0.9% INJ SCH (13:30)
[2019-05-07] MEDS: ROCEPHIN 2 GM in NS 50 ML IV SCH (15:03)
--- NOTE | 2019-05-07 16:50 | PULMONOLOGY PROGRESS NOTE ---
DATE: 05/07/2019 SUBJECTIVE: The patient is awake, alert and conversant. He has a slightly wet cough. He is requiring p.r.n. pain medications for abdominal pain but feels better. OBJECTIVE: Vital Signs: The patient has been afebrile for the last 24 hours. Blood pressure 150/78, heart rate 85, respiratory rate 20, oxygen saturation 97% on 2 L per nasal cannula. HEENT: Pupils are equal and reactive. Oropharynx is clear. Neck: Supple. Chest: Reveals good air entry bilaterally with occasional rhonchi. Cardiac: S1-S2. Abdomen: Is soft with positive bowel sounds. Extremities: Reveal trace edema. LABORATORIES: Chest x-ray reveals infiltrate at the left base with small effusion. Sodium 138, potassium 3.1, chloride 100, bicarbonate 27, BUN 19, creatinine 0.6. White blood count 7.54, hemoglobin 12.5, platelet count 191,000. Arterial blood gas reveals a pH 7.52, pCO2 of 37, PO2 of 71. IMPRESSION: A 79-year-old with 1. Acute hypoxemic respiratory failure. 2. Acute cholecystitis with gram-negative bacteremia. 3. Left-sided effusion. 4. Left basilar pneumonia. PLAN: 1. Continue to wean oxygen as tolerated. 2. Continue bronchial hygiene. 3. Continue antibiotics per Infectious Disease. 4. Diet per General Surgery. 5. Agree with plans to transfer out of the ICU. cc: Miles Mcdonald MD
[2019-05-08] MEDS: MORPHINE IV PRN ×4 (02:39→18:39)
[2019-05-08] MEDS: ZYVOX 600 MG/D5W 600 MG/300 ML IVPB IV SCH ×2 (02:51→16:57)
[2019-05-08 04:43] LABS: ALLEN TEST YES; BE 8.1 mmoll (-3.0-3.0); BLOOD TYPE ARTERIAL; HCO3-(ACT) 31.1 mmoll (20.0-26.0); METHB 1.1 % (0.0-1.5); O2(CT) 15.1 mL/dL (15.0-23.0); O2HB 92.6 % (95.0-99.0); PCO2(98.6) 41 mmHg (35-45); PO2(98.6) 60 mmHg (60-100); SAMPLE BLOOD; SAO2 95.9 % (95.0-100.0); THB 11.6 g/dL (11.5-17.4)
[2019-05-08 04:44] LABS: MODALITY ROOM AIR
[2019-05-08 05:36] LABS: BASO# 0.01 X1000 (0.0-0.2); BASO% 0.1 % (0.0-0.8); EOS# 0.14 X1000 (0.0-0.7); EOS% 1.9 % (0.0-10.0); HEMATOCRIT 35.8 % (42.0-52.0); HEMOGLOBIN 11.2 g/dL (14.0-18.0); IMM GRAN# 0.32 X1000 (0.0-0.04); IMM GRAN% 4.3 % (0.0-0.5); LYMPH# 0.98 X1000 (1.2-3.4); LYMPH% 13.2 % (20.5-51.1); MCH 27.9 PG (27-31); MCHC 31.3 g/dL (33-37); MCV 89.1 FL (81-99); MONO# 0.89 X1000 (0.11-0.59); MPV 10.8 FL (7.4-10.4); NEUT# 5.08 X1000 (1.4-6.5); NEUT% 68.5 % (42.2-75.2); PLT 214 X1000 (130-400); RBC 4.02 XMIL (4.7-6.1); RDW 13.7 % (11.5-14.5); WBC 7.42 X1000 (4.8-10.8)
[2019-05-08 05:56] LABS: AGAP 8; ALB/GLOB RATIO 0.9; ALKALINE PHOSPHATASE 73 U/L (32-122); BUN 15 mg/dL (8-22); CALCIUM 7.7 mg/dL (8.8-10.2); CHLORIDE 102 mmol/L (98-107); COSMO 279; CREATININE 0.6 mg/dL (0.7-1.2); ESTIMATED GFR > 60; GLUCOSE 143 mg/dL (70-104); GOT 24 U/L (10-34); GPT 38 U/L (10-44); POTASSIUM 3.1 mmol/L (3.5-5.1); SODIUM 138 mmol/L (136-145); TCO2 28 mmol/L (25-35); TOTAL BILIRUBIN 0.84 mg/dL (0.20-1.00); TOTAL PROTEIN 4.3 g/dL (6.3-8.3)
[2019-05-08] MEDS ORDERED: KLOR-CON PO ONE (06:00)
[2019-05-08] MEDS: POTASSIUM CHLORIDE 20 MEQ/SWI 20 MEQ/100 ML IVPB IV SCH ×2 (06:15→10:10)
[2019-05-08] MEDS: MYLICON PO PRN ×2 (06:20→17:04)
--- NOTE | 2019-05-08 07:06 | Diag Imaging Result Doc PS360 ---
EXAM: CHEST-PORTABLE 05/08/2019 HISTORY: pneumonia TECHNIQUE: AP portable at 0505 COMMENT: There is opacification in the left lower lobe behind the heart. There is a platelike opacity in the left base laterally. This is not changed significantly since 05/07/2019. IMPRESSION: Left lower lobe atelectasis and/or pneumonia. Electronically signed by Saad Cerda 05/08/2019 7:04 AM
--- NOTE | 2019-05-08 07:42 | GENERAL SURGERY PROGRESS NOTE ---
DATE: 05/08/2019 The patient seems to be doing well. Nursing staff reports no major issues. He has been able to eat. He is having some gas pain, but it seems to be okay. Hemodynamically, he has been stable from a respiratory point of view. He has been stable, I think from a surgical point of view. Will make arrangements for him to go to the [facility] and be transferred out of the ICU. His IRMA drain still has a good amount of output, so will continue it, but otherwise he seems to be doing well. cc: Tye Fernando MD
--- NOTE | 2019-05-08 08:18 | INFECTIOUS DISEASE PROGRESS NO ---
DATE: 05/08/2019 PRESENT ILLNESS: The patient has an Escherichia coli bacteremia, which originated from his acute cholecystitis. He is status post cholecystectomy. The patient also has a left lower lobe pneumonia and/or atelectasis. MEDICATIONS: This is day 4 of treatment with Rocephin, and day 4 of treatment with Zyvox as well. PHYSICAL EXAMINATION: Vital Signs: Temperature is 98.6 degrees, pulse 72, respirations 17, blood pressure 136/65. General: This is an ill-appearing, elderly male. He is alert and coherent. HEENT: He can hear my spoken words and see near objects. He does not have any white coating on his tongue. Neck: No pain with moving his neck. Lungs: Clear to auscultation. Cardiovascular: Regular heart rate. Abdomen: Soft, and it is not tender to light palpation. In the right upper quadrant, there is an incision which has a large dressing over it. The dressing is intact. Also, the patient has a drain in the right upper quadrant. The drain site is not erythematous or purulent, and the fluid coming from the drain is serosanguineous. Neurologic: The patient is alert today. He talks in a coherent fashion. He can move his extremities. There is no tremor. IMAGING AND LABORATORY DATA: Chest x-ray shows left lower lobe atelectasis and/or pneumonia. Liver function studies are normal. Creatinine is 0.6. GFR is greater than 60. The patient's blood gases show a pH of 7.5, a PO2 of 60, and a pCO2 of 41. The patient's CBC shows a white count of 7420, hemoglobin 11.2, and platelet count 214,000. ASSESSMENT AND PLAN: The patient has bacteremia and possible pneumonia. I plan on continuing Rocephin and Zyvox. COMORBIDITIES: The patient is elderly. He has had surgery during this admission for cholecystectomy. The patient also suffered a myocardial infarction. He has gastroesophageal reflux disease and pulmonary edema also. cc: Quincy Padilla MD
--- NOTE | 2019-05-08 08:30 | CARDIOLOGY PROGRESS NOTE ---
DATE: 05/08/2019 CHIEF COMPLAINT: Confusion, weakness, nausea, vomiting. SUBJECTIVE: Mr. Buchanan seems to be improving. He is not having any pain at this time. He is breathing comfortably. He is starting to eat. Today, they have ordered a full breakfast. OBJECTIVE: Vital signs: Blood pressure is 136/65, temperature 98.6, pulse 72, respirations 17. He is awake, alert, in no distress. His complexion is normal. HEENT: Unremarkable. Chest: Slightly diminished breath sounds at bases. Heart sounds are regular and rhythmic. I do not hear gallop or murmur. His abdomen is slightly distended. He still has a drain. Bowel sounds are slightly diminished. Extremities showed excellent dorsalis pedis pulses. Neurologic: He follows commands. Moves all 4 extremities. He is very shaky, tremulous. DIAGNOSTIC DATA: Blood work this morning shows white cell count is 7420, hemoglobin 11.2, hematocrit 35.8. Sodium 138, potassium 3.1, BUN is 15, creatinine 0.6. IMPRESSION: 1. The patient presented essentially with septicemia Escherichia coli arising from infected gallbladder, acute cholecystitis. 2. Recent episode of gallstone pancreatitis. 3. Ejg-[id number] myocardial infarction. 4. Background of moderate coronary atherosclerosis. 5. History of hypertension. RECOMMENDATIONS: At this time, the patient continues to improve. We basically have to just keep all of his numbers within adequate range, optimize his potassium, optimize his nutritional status, start to mobilize him. The patient will more than likely benefit from a stay at rehab facility for 2 or 3 weeks to regain his strength. At this time, his cardiac issues are completely secondary to the underlying septic process, and we will consider a reassessment of that after he recovers fully from the present situation. Thank you for asking us to participate in his evaluation. cc: Luis Fernando Cage MD
[2019-05-08] MEDS: LOPRESSOR PO SCH ×2 (08:37→20:50)
[2019-05-08] MEDS: XANAX PO SCH ×2 (08:38→20:48)
[2019-05-08] MEDS: ASPIRIN PO SCH (08:38)
[2019-05-08] MEDS: CAPOTEN PO SCH ×2 (08:54→20:49)
--- NOTE | 2019-05-08 10:13 | PROVIDER PROGRESS NOTE ---
Progress Note Dr. Leon Progress Note/Pulmonary and or critical care We appreciated progress of care, Complications, change in diagnosis, and instructions to patient under direct supervision of Dr. Leon. Subjective: We note the level of consciousness, bed (chair) position, family presence (if any), level of lethargy, feeling of symptoms, and changes from baseline condition/symptom. The patient is feeling better. He is on room air with SaO2 in high 90s. He is on physical therapy now and walking with assistance and walker outside of the room. He is a/o x3 and following commands. No fever overnight. Objective: Vital Signs: We reviewed EMR current values for Pulse rate, Blood pressure, Pulse rate, respiratory rate and Pulse oximetry. Also noted other values and trends if present (e.g. I/O, CVP). Vital Signs 05/07/19 12:59 05/07/19 13:59 05/07/19 15:59 Temperature Pulse Rate 77 63 72 Respiratory Rate 21 16 19 Blood Pressure 134/74 124/69 141/75 O2 Sat by Pulse Oximetry 96 96 96 05/07/19 16:00 05/07/19 16:59 05/07/19 17:59 Temperature 98.6 F Pulse Rate 72 72 Respiratory Rate 18 16 Blood Pressure 142/69 150/76 O2 Sat by Pulse Oximetry 97 97 05/07/19 18:59 05/07/19 19:54 05/07/19 19:59 Temperature 97.6 F Pulse Rate 74 74 79 Respiratory Rate 18 18 20 Blood Pressure 135/66 135/66 126/72 O2 Sat by Pulse Oximetry 96 96 96 05/07/19 20:30 05/07/19 20:59 05/07/19 21:59 Temperature Pulse Rate 65 60 Respiratory Rate 16 16 Blood Pressure 133/68 120/63 O2 Sat by Pulse Oximetry 94 L 97 97 05/07/19 22:59 05/07/19 23:40 05/07/19 23:59 Temperature 98.2 F Pulse Rate 63 63 63 Respiratory Rate 16 13 14 Blood Pressure 123/59 123/59 112/54 O2 Sat by Pulse Oximetry 91 L 91 L 92 L 05/08/19 00:59 05/08/19 01:59 05/08/19 02:59 Temperature Pulse Rate 63 63 70 Respiratory Rate 14 15 18 Blood Pressure 111/52 108/48 128/65 O2 Sat by Pulse Oximetry 91 L 91 L 92 L 05/08/19 03:15 05/08/19 03:17 05/08/19 03:59 Temperature 98.6 F Pulse Rate 69 70 62 Respiratory Rate 16 18 13 Blood Pressure 128/65 128/65 111/52 O2 Sat by Pulse Oximetry 91 L 92 L 91 L 05/08/19 04:59 05/08/19 05:59 05/08/19 07:59 Temperature Pulse Rate 67 72 Respiratory Rate 17 17 Blood Pressure 134/62 136/65 145/79 O2 Sat by Pulse Oximetry 92 L 91 L 93 L 05/08/19 08:00 05/08/19 08:23 05/08/19 08:59 Temperature 97.8 F Pulse Rate 80 99 H 84 Respiratory Rate 20 28 H 18 Blood Pressure 145/79 124/73 O2 Sat by Pulse Oximetry 93 L 93 L 93 L 05/08/19 11:00 05/08/19 11:07 Temperature Pulse Rate 72 69 Respiratory Rate 21 21 Blood Pressure 136/72 126/68 O2 Sat by Pulse Oximetry 94 L 94 L Intake & Output 05/07/19 05/08/19 05/08/19 19:59 07:59 19:59 Intake Total 420 / 1430 1010 / 1430 Output Total 430 / 1135 705 / 1135 Balance -10 / 295 305 / 295 Intake: Intake, IVPB 650 / 650 Intake, Oral Amount 420 / 780 360 / 780 Output: Output, Urine Thompson Amount 350 / 925 575 / 925 Output, IRMA Drain #1 80 / 80 Output, IRMA #1 (Telepun) 130 / 130 Other: Percent of Meal Consumed 25% 25% Number of Bowel Movements 3 2 Bowel Movement Color and Liquid Liquid Character Brown Physical Examination: General: On room air. Sitting on the bedside chair with essential tremor noted. HEENT: Trachea midline. Mucus pink and moist. Chest: Symmetrical excursion. Diminished breathing sounds b/l. CVS: S1 S2. Abdomen: Soft. Dressing on the right side of the RUQ is intact. IRMA drain in place. Extremities: BLE and LUE pitting edema 1+. Dorsalis pedis diminished b/l. Neuro: Alert. Generalized weakness present. Labs and Radiology: Reviewed available labs and radiology values available at time of EMR review. Laboratory Results 05/08/19 05/08/19 05/08/19 04:00 04:39 04:39 WBC 7.42 RBC 4.02 L Hgb 11.2 L Hct 35.8 L MCV 89.1 MCH 27.9 MCHC 31.3 L RDW Std Deviation 13.7 Plt Count 214 MPV 10.8 H Immature Gran % (Auto) 4.3 H Neut % (Auto) 68.5 Lymph % (Auto) 13.2 L [place] % (Auto) 12.0 H Eos % (Auto) 1.9 Baso % (Auto) 0.1 Immature Gran # (Auto) 0.32 H Neut # (Auto) 5.08 Lymph # (Auto) 0.98 L [place] # (Auto) 0.89 H Eos # (Auto) 0.14 Baso # (Auto) 0.01 Specimen Type ARTERIAL Sample Site R RADIAL pH 7.50 H pCO2 41 pO2 60 HCO3 31.1 H Base Excess 8.1 H Oxyhemoglobin 92.6 L ABG O2 Sat (Calculated) 15.1 ABG O2 Saturation 95.9 ABG Carboxyhemoglobin 2.20 ABG Methemoglobin 1.1 James Test YES A-a O2 Difference 38.0 Total Hemoglobin 11.6 Lactate 0.80 Blood Gas Modality ROOM AIR FiO2 % 21.0 Sodium 138 Potassium 3.1 L Chloride 102 Carbon Dioxide 28 Anion Gap 8 BUN 15 Creatinine 0.6 L Estimated GFR/1.73 m2 > 60 BUN/Creatinine Ratio 25 Glucose 143 H Calculated Osmolality 279 Calcium 7.7 L Total Bilirubin 0.84 AST 24 ALT 38 Alkaline Phosphatase 73 Total Protein 4.3 L Albumin 2.0 L Globulin 2.3 Albumin/Globulin Ratio 0.9 Dr. Leon evaluated and additional note below. Evaluation time in minutes: 32 minutes. Assessment: Acute hypoxic respiratory failure secondary to cholecystectomy. Extubated on 05/03/19. LLL pneumonia +/- atelectasis with a small left pleural effusion. Acute cholecystitis. Laparoscopic converted to open cholecystecotomy on 05/02/2019 Gram-negative christopher bacteremia. NSTEMI Plan: Continue current treatment and supportive care per admitting and other teams on the case. Antibiotics per Dr. Padilla. Bronchodilators PRN. Physical therapy. Encourage incentive spirometer, deep breathing and cough. Appropriate DVT and GI prophylaxis. Input was appreciated from Admitting MD and other teams on the case. See additional notes by Dr. Leon.
[2019-05-08] MEDS: PROTONIX IV SCH (11:35)
[2019-05-08] MEDS: SODIUM CHLORIDE 0.9% INJ SCH (11:36)
--- NOTE | 2019-05-08 15:11 | PROGRESS NOTE ---
DATE: 05/08/2019 SUBJECTIVE: This morning, Mr. Buchanan refers to be doing well. He denies any new complaints. He has been tolerating his meals and he had multiple bowel movements yesterday. OBJECTIVE: Vital Signs: Blood pressure is 126/68, pulse of 69, respirations are 21, temperature is 97.8 degrees. General Examination: Mr. Buchanan is a 79-year-old, elderly, gentleman. He is in bed. No distress. HEENT: Mucosa is pink and moist. Anicteric. Acyanotic. Neck: Supple. Chest: Good air entry bilaterally. No crepitations. No rhonchi. Cardiovascular: Regular rate and rhythm. There are no murmurs, no rubs, no gallops. GI: Abdomen is soft. Minimally distended but nontender. There is a sterile dressing over the right upper quadrant surgical incision. IRMA drain is still in place. The bottle has a serosanguineous fluid in it. PLEAS[employer]ILOR: The patient is awake, alert, oriented. He does have some essential tremors. Is and Os: Urine output was 2059. Patient is currently negative balance of 3797. Laboratory Data: WBC is 7.49, hemoglobin is 11.2, platelet count of 214,000. Chemistry is also reviewed. Potassium is 3.1. Rest of chemistry is unremarkable. Imaging Studies: A chest x-ray shows left lower lobe atelectasis and/or pneumonia. CURRENT MEDICATIONS: Include: 1. Xanax 0.25 p.o. q.12. 2. Aspirin 81 mg p.o. daily. 3. Captopril 12.5 b.i.d. 4. Ceftriaxone 2 g q.24. 5. Xopenex. 6. Zyvox 600 IV q.12. 7. Metoprolol 25 mg b.i.d. 8. Zofran p.r.n. 9. Pantoprazole 40 mg IV q.12. 10. Primidone has just been started at 50 mg p.o. at bedtime. ASSESSMENT: 1. Acute gallstone cholecystitis complicated with septic shock, Escherichia coli bacteremia, sepsis-induced encephalopathy, shock liver, and respiratory failure, all improved. 2. Acute hypoxemic respiratory failure after abdominal surgery. Mr. Buchanan was initially intubated, has successfully been extubated. He is currently on supplemental oxygen and he is being gradually weaned off. 3. Acute calculous cholecystitis. Patient is status post laparoscopic, converted to an open cholecystectomy. Today is day 6. Manpreet-Guido drain is still in place. Surgery is on board. The patient has been started on a diet. He is having regular bowel movements and he is tolerating his diet. 4. Non-ST elevation myocardial infarction, presumably from demand mismatch. Cardiology is on board. 5. Hypertension, is better, improved on current medication regimen. 6. Left lower lobe infiltrate, concerning for pneumonia. Patient has been started on Zyvox and he is also on Rocephin. 7. Escherichia coli bacteremia, presumably from the acute cholecystitis. Repeat blood cultures have been negative. 8. Anemia of acute blood loss. Mr. Buchanan received a total of 4 units of packed red blood cell transfusion during the surgery. He also had fresh frozen plasma and platelets at some point. 9. Essential tremor. At home, Mr. Buchanan uses Xanax. He has been started back on this here. We have also added primidone for better control. 10. Generalized weakness and deconditioning. Physical therapy has been consulted and social work has also been consulted for possible rehab placement once he is medically stable. PLAN: In general, Mr. Buchanan has been in the hospital for the past 7 days. Initially presented because of abdominal pain, nausea, and vomiting. He was found to have acute calculous cholecystitis. Was admitted initially to the floor with surgery consult. However, Mr. Buchanan got complicated, became septic with bacteremia, and was transferred to the ICU. Was intubated and he underwent the surgery. Postoperatively, he has been gradually getting better. All his lab abnormalities seem to have improved and he was successfully extubated. Today, we are going to transfer him from the ICU to the [facility]. Thompson catheter has been removed and he will continue with his antimicrobial coverage. PT has been consulted and social and political studies professor has been consulted for rehab placement. cc: Eder Ramos MD
[2019-05-08] MEDS: ROCEPHIN 2 GM in NS 50 ML IV SCH (16:57)
[2019-05-08] MEDS: MYSOLINE PO SCH (20:50)
[2019-05-09 05:27] LABS: ALLEN TEST YES; BE 4.3 mmoll (-3.0-3.0); BLOOD TYPE ARTERIAL; HCO3-(ACT) 28.2 mmoll (20.0-26.0); METHB 1.2 % (0.0-1.5); PCO2(98.6) 32 mmHg (35-45); PO2(98.6) 77 mmHg (60-100); SAMPLE BLOOD; THB 11.9 g/dL (11.5-17.4); pH(98.6) 7.53 (7.35-7.45)
[2019-05-09 05:28] LABS: MODALITY ROOM AIR
[2019-05-09 06:01] LABS: BASO# 0.03 X1000 (0.0-0.2); BASO% 0.4 % (0.0-0.8); EOS# 0.13 X1000 (0.0-0.7); EOS% 1.8 % (0.0-10.0); HEMATOCRIT 36.9 % (42.0-52.0); HEMOGLOBIN 11.7 g/dL (14.0-18.0); IMM GRAN# 0.23 X1000 (0.0-0.04); IMM GRAN% 3.1 % (0.0-0.5); LYMPH% 10.8 % (20.5-51.1); MCH 28.6 PG (27-31); MCHC 31.7 g/dL (33-37); MCV 90.2 FL (81-99); MONO# 0.61 X1000 (0.11-0.59); MONO% 8.2 % (1.7-9.3); MPV 10.4 FL (7.4-10.4); NEUT# 5.62 X1000 (1.4-6.5); NEUT% 75.7 % (42.2-75.2); PLT 217 X1000 (130-400); RBC 4.09 XMIL (4.7-6.1); WBC 7.42 X1000 (4.8-10.8)
[2019-05-09 06:19] LABS: AGAP 10; ALB/GLOB RATIO 0.8; ALBUMIN 2.2 g/dL (3.5-5.0); ALKALINE PHOSPHATASE 83 U/L (32-122); BUN 16 mg/dL (8-22); CALCIUM 8.1 mg/dL (8.8-10.2); CHLORIDE 104 mmol/L (98-107); COSMO 279; CREATININE 0.7 mg/dL (0.7-1.2); ESTIMATED GFR > 60; GLUCOSE 100 mg/dL (70-104); GOT 31 U/L (10-34); GPT 41 U/L (10-44); POTASSIUM 3.5 mmol/L (3.5-5.1); SODIUM 139 mmol/L (136-145); TCO2 25 mmol/L (25-35); TOTAL BILIRUBIN 1.01 mg/dL (0.20-1.00)
--- NOTE | 2019-05-09 09:22 | Diag Imaging Result Doc PS360 ---
EXAM: HIDA SCAN W/O EJECT. FRACTION HISTORY: possible bile leak after cholecystectomy TECHNIQUE: Nuclear medicine HIDA scan COMPARISON: None. FINDINGS: 5.1 mCi Choletec administered. There is normal uptake within the liver. Normal emptying into the small bowel. The gallbladder has been removed by history. No extravasation of radiopharmaceutical in the right upper quadrant. IMPRESSION: No evidence of a bile leak. Electronically signed by Filippo Fish 05/09/2019 9:20 AM
--- NOTE | 2019-05-09 09:24 | PROGRESS NOTE ---
DATE: 05/09/2019 SUBJECTIVE: The patient reports feeling fine. is at bedside. No complaints at this time. OBJECTIVE: Vital Signs: Temperature 98.4 degrees, heart rate 75, respiratory rate 20, blood pressure 133/52, and O2 saturation 92% on room air. General: On examination this is a 79-year- old male, lying in bed, in no acute distress. Cardiovascular: S1 and S2 heard. No murmurs, gallops, or rubs. Regular rate and rhythm. Respiratory: Clear bilaterally to auscultation. No work of breathing or using accessory muscles. Abdomen: Soft. A little bit distended, but nontender to palpation. IRMA drain still in place. There is a right upper quadrant surgical incision with no pus coming out. Extremities: No clubbing, cyanosis, or edema. Peripheral pulses present in both legs. Neurological: Patient is alert, oriented x3. The patient has minimal essential tremor noted. LABORATORY DATA: White cell count 7.42, hemoglobin 11.7, hematocrit 36.9, platelets 217,000 with pH 7.33, pCO2 of 32, PO2 of 77 with normal BMP. Bilirubin 1.01. AST and ALT are completely normal. ASSESSMENT AND PLAN: 1. Acute gallstone cholecystitis complicated with septic shock, Escherichia coli bacteremia, sepsis-induced encephalopathy, shock liver, respiratory failure. All those conditions have improved. The patient reports feeling fine. Vital signs are okay. We will with continue current management. 2. Acute hypoxemic respiratory failure after abdominal surgery. At this point, the patient is doing much better. Not requiring any oxygen supplementation. We will continue to monitor. 3. Acute calculous cholecystitis, status post laparoscopic cholecystectomy converted to an open cholecystectomy. Today is day number 7 of surgery. Manpreet-Guido still in place, and Surgery, Dr. Fernando, is on board following this patient. 4. Non ST-segment elevation myocardial infarction, presumably from demand mismatch. The patient reports feeling fine. No chest pain. Cardiology has been following him. 5. Hypertension. Blood pressure is under control. We will continue with same management. 6. Left lower lobe pneumonia. We will continue with Zyvox and Rocephin. 7. Escherichia coli bacteremia, presumably coming from acute cholecystitis. Blood culture has been negative. Patient will require 14 days of antibiotics, hopefully that will be sensitive to Levaquin, so we will switch to that medication once he is ready to go. 8. Anemia of acute blood loss. During his hospitalization, he received 4 units of blood and now hemoglobin is 14.4. We will continue to monitor. 9. Essential tremor. We will continue with Xanax. 10. General weakness and deconditioning. The patient is awaiting a rehab bed. 11. Disposition. At this point, patient is much more stable. If cleared by Surgery, I think this patient can be discharged from the hospital. 12. Awaiting for a rehab bed as well. cc: Dominic Bates MD
--- NOTE | 2019-05-09 09:36 | Diag Imaging Result Doc PS360 ---
EXAM: CHEST-PORTABLE HISTORY: pneumonia TECHNIQUE: Single view COMPARISON: 05/08/2019 FINDINGS: The lungs are well expanded. The heart is not enlarged. The vessels are not distended there is a small left pleural effusion with increased interstitial markings in the left base. IMPRESSION: Small left pleural effusion with basilar atelectasis versus a small infiltrate. No significant change. Electronically signed by Filippo Fish 05/09/2019 9:34 AM
--- NOTE | 2019-05-09 09:54 | GENERAL SURGERY PROGRESS NOTE ---
DATE: 05/09/2019 SUBJECTIVE: Patient seems to be doing okay. OBJECTIVE: Vital Signs: The patient is currently afebrile. Vital signs are stable. General Examination: No acute distress. Cardiovascular: Regular rate and rhythm. Lungs: Grossly clear. Abdomen: Soft. Appropriately tender. IRMA drain in place now with a little bit of bile noted coming out. Laboratory: None this morning as of yet. ASSESSMENT AND PLAN: A 79-year-old gentleman, currently postoperative day #7 from open cholecystectomy. Postoperative state. At this time, he does have a little bit of bile-tinged fluid come out of his drain. He is high risk for a bile leak. He had significant bleeding on the liver itself and we had to ligate the surface of the liver. He may have a duct of Luschka leak. He could also have a cystic duct stump leak. Output is not egregious. We will get a HIDA scan first to see if it is truly a leak and get gastroenterology to see him for a potential endoscopic retrograde cholangiopancreatography if needed. The patient is hemodynamically stable. He has been transferred to the floor. We will keep the Manpreet-Guido drain in place for now. cc: Tye Fernando MD
[2019-05-09] MEDS: XANAX PO SCH ×2 (09:58→22:13)
[2019-05-09] MEDS: CAPOTEN PO SCH ×2 (09:58→22:12)
[2019-05-09] MEDS: LOPRESSOR PO SCH ×2 (09:59→22:12)
[2019-05-09] MEDS: ZYVOX 600 MG/D5W 600 MG/300 ML IVPB IV SCH ×2 (09:59→22:13)
[2019-05-09] MEDS: ASPIRIN PO SCH (09:59)
--- NOTE | 2019-05-09 11:27 | PROVIDER PROGRESS NOTE ---
Progress Note Dr. Leon Progress Note/Pulmonary and or critical care We appreciated progress of care, Complications, change in diagnosis, and instructions to patient under direct supervision of Dr. Leon. Subjective: We note the level of consciousness, bed (chair) position, family presence (if any), level of lethargy, feeling of symptoms, and changes from baseline condition/symptom. The patient is feeling better. He is on room air and tolerates well. He has a good BM this am. No fever overnight. at the bedside. Objective: Vital Signs: We reviewed EMR current values for Pulse rate, Blood pressure, Pulse rate, respiratory rate and Pulse oximetry. Also noted other values and trends if present (e.g. I/O, CVP). Vital Signs 05/08/19 13:59 05/08/19 14:59 05/08/19 15:49 Temperature 98.6 F Pulse Rate 80 74 70 Respiratory Rate 22 22 16 Blood Pressure 129/72 129/86 142/73 O2 Sat by Pulse Oximetry 94 L 95 97 05/08/19 16:46 05/08/19 20:00 05/08/19 20:19 Temperature 98.9 F Pulse Rate 72 82 Respiratory Rate 18 Blood Pressure 129/62 O2 Sat by Pulse Oximetry 99 99 05/08/19 23:36 05/09/19 04:00 05/09/19 07:35 Temperature 97.7 F 99.8 F H 98.4 F Pulse Rate 70 71 75 Respiratory Rate 16 18 20 Blood Pressure 107/52 121/48 123/52 O2 Sat by Pulse Oximetry 98 93 L 93 L 05/09/19 11:37 Temperature 97.7 F Pulse Rate 72 Respiratory Rate 15 Blood Pressure 135/55 O2 Sat by Pulse Oximetry 94 L Intake & Output 05/08/19 05/09/19 05/09/19 19:59 07:59 19:59 Intake Total 640 / 840 200 / 840 Output Total 1080 / 1455 375 / 1455 Balance -440 / -615 -175 / -615 - Intake: Intake, IVPB 100 / 100 Intake, Oral Amount 540 / 740 200 / 740 Output: Output, Urine Void Amount 200 / 200 Output, Urine Thompson Amount 1020 / 1020 Output, IRMA Drain #1 175 / 175 Output, IRMA #1 (Telepun) 60 / 60 Other: Number of Continent Voids Not 1 Measured Number of Bowel Movements 1 1 1 Bowel Movement Color and Soft Character Brown Physical Examination: General: On room air. Lying in bed with no acute distress noted. HEENT: Trachea midline. Mucus pink and moist. Chest: Even and unlabored. Symmetrical excursion. Diminished breathing sounds b/l. CVS: S1 S2. Abdomen: Soft. Dressing on the right side of the RUQ is intact. IRMA drain in place. Extremities: BLE pitting edema 1+ up to the thigh area. Dorsalis pedis diminished b/l. Neuro: Alert/oriented x 3. Speech fluent. Follow commands. Essential tremor noted. Generalized weakness present. Labs and Radiology: Reviewed available labs and radiology values available at time of EMR review. Laboratory Results 05/09/19 05/09/19 05/09/19 04:50 05:45 05:45 WBC 7.42 RBC 4.09 L Hgb 11.7 L Hct 36.9 L MCV 90.2 MCH 28.6 MCHC 31.7 L RDW Std Deviation 14.0 Plt Count 217 MPV 10.4 Immature Gran % (Auto) 3.1 H Neut % (Auto) 75.7 H Lymph % (Auto) 10.8 L [place] % (Auto) 8.2 Eos % (Auto) 1.8 Baso % (Auto) 0.4 Immature Gran # (Auto) 0.23 H Neut # (Auto) 5.62 Lymph # (Auto) 0.80 L [place] # (Auto) 0.61 H Eos # (Auto) 0.13 Baso # (Auto) 0.03 Specimen Type ARTERIAL Sample Site R RADIAL pH 7.53 H pCO2 32 L pO2 77 HCO3 28.2 H Base Excess 4.3 H Oxyhemoglobin 95.0 ABG O2 Sat (Calculated) 16.0 ABG O2 Saturation 98.0 ABG Carboxyhemoglobin 2.00 ABG Methemoglobin 1.2 James Test YES A-a O2 Difference 33.0 Total Hemoglobin 11.9 Lactate 0.90 Blood Gas Modality ROOM AIR FiO2 % 21.0 Sodium 139 Potassium 3.5 Chloride 104 Carbon Dioxide 25 Anion Gap 10 BUN 16 Creatinine 0.7 Estimated GFR/1.73 m2 > 60 BUN/Creatinine Ratio 23 Glucose 100 Calculated Osmolality 279 Calcium 8.1 L Total Bilirubin 1.01 H AST 31 ALT 41 Alkaline Phosphatase 83 Total Protein 5.0 L Albumin 2.2 L Globulin 2.8 Albumin/Globulin Ratio 0.8 Dr. Leon evaluated and additional note below. Evaluation time in minutes: 32 minutes. Assessment: Acute hypoxic respiratory failure secondary to cholecystectomy. Extubated on 05/03/19. LLL pneumonia +/- atelectasis with a small left pleural effusion. Acute cholecystitis. Laparoscopic converted to open cholecystecotomy on 05/02/2019 Gram-negative christopher bacteremia. NSTEMI Plan: Continue current treatment and supportive care per admitting and other teams on the case. Antibiotics per Dr. Padilla. Bronchodilators PRN. Physical therapy. Encourage incentive spirometer, deep breathing and cough. Appropriate DVT and GI prophylaxis. Input was appreciated from Admitting MD and other teams on the case. See additional notes by Dr. Leon.
[2019-05-09] MEDS: MORPHINE IV PRN (14:24)
--- NOTE | 2019-05-09 14:49 | GASTROENTEROLOGY CONSULTATION ---
DATE: 05/09/2019 REASON FOR CONSULT: Possible bile leak after open cholecystectomy. HISTORY OF PRESENT ILLNESS: Mr. Buchanan is a 79-year-old, male who recently had a cholecystectomy done on 05/02/2019. The patient mentioned that on the , around midnight, he went to [facility] with complaints of abdominal pain, nausea, vomiting, and having chills but he had denied any shortness of breath or chest pain. A CT scan was done in the ER at [facility] and it showed gallstones and pancreatitis. The patient was kept on observation and on the , he was sent home. After going home, the patient had the same problems and he came to [facility] on the . An abdomen and pelvis CT on the showed that the patient had gallstones in gallbladder neck, moderately distended gallbladder, and small amount of pericholecystic fluid with possibility of acute cholecystitis. Diverticulum arising at the descending duodenum. No discrete associated diverticulitis. Small amount of free fluid in the abdomen and pelvis. No evidence of free air and bilateral pleural effusion. The patient had gallbladder surgery done on the by Dr. Fernando. The patient has a history of prostate cancer removed in 2012 and had radiation in 2014. 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 Currently, the patient has got a dressing on his right side of the abdomen and he has got small dressing on the left side and on the midline. The patient has a IRMA drain which is draining light green color. PAST MEDICAL HISTORY: Prostate cancer s/p prostatectomy and radiation, hypertension, hyperlipidemia, essential tremors, and GERD. PAST SURGICAL HISTORY: Prostatectomy, back surgery, skin cancer near his right eye removed. ALLERGIES: No known drug allergies. SOCIAL HISTORY: The patient is , has 2 kids. He was a past alcoholic and a smoker. He has denied doing any illicit drugs. FAMILY HISTORY: His dad had heart attack and mom had congestive heart failure. HOME MEDICATIONS: Prilosec 40 mg daily, Xanax 0.5 mg twice a day, simvastatin 20 mg at bedtime, Ditropan 5 mg daily, lisinopril 20 mg daily, vitamin D2 with 400 units daily, metoprolol tartrate 25 mg p.o. twice a day, Carafate 1 g twice a day, and amoxicillin 875 mg p.o. twice a day. REVIEW OF SYSTEMS: As per HPI. Otherwise, 12-point review of systems is negative. PHYSICAL EXAMINATION: Vital Signs: Temperature 97.7 degrees, pulse 72, respirations 15, blood pressure 135/55, oxygen saturation 94% on room air. The patient's weight is 186 pounds. BMI is 24.4 kg/m2. General: He is alert, oriented x3, and in no acute distress. Answering questions appropriately. HEENT: Pale conjunctivae. No icterus. PERRL. Neck: Supple. Lungs: Clear to auscultation. Cardiovascular: Regular rate and rhythm. Abdomen: Distended. Tender. Surgical incision with dressing dry and intact on the right and the left side. Active bowel sounds heard in all 4 quadrants. Extremities: No clubbing, no cyanosis, no edema. Pedal pulses 2+ present bilaterally. Neurologic: Alert and oriented x3. Nonfocal. Cranial nerves 2- 12 grossly intact. LABORATORY DATA: WBCs are 7.42, RBCs 4.09, hemoglobin is 11.7, hematocrit is 36.9, platelet count is 217,000. Sodium 139, potassium 3.5, chloride 104, carbon dioxide 25, anion gap 10, BUN 16, creatinine is 0.7, glucose 100, calcium 8.1. Total bilirubin 1.01, AST 31, ALT 41, alkaline phosphatase is 83, albumin is 2.2. Microbiology: Patient's blood culture on 05/01/2019 had shown that he has E. coli. The patient's HIDA scan today has shown there is no evidence of bile leak. His chest x-ray has shown small left pleural effusions with basilar atelectasis versus small infiltrates. IMPRESSION AND PLAN: 1. Cholecystitis, status post cholecystectomy. 2. Pneumonia. 3. Bacteremia. 4. Hypertension. 5. Gastroesophageal reflux disease PLAN: Mr. Buchanan is a 79-year-old, male who recently had a cholecystectomy done. GI has been consulted for possible bile leakage. The patient is currently receiving Protonix 40 mg IV for his GERD. He is receiving Rocephin and Zyvox for his bacteremia and pneumonia. His HIDA scan today has shown that there is no bile leakage. We will continue to monitor the patient's IRMA drain. His drainage currently is light green in color, if there are any changes or if we notices any bile in his IRMA drain, we will plan to do an ERCP. For now, we will continue to monitor his IRMA drain, monitor the patient and follow the plan of care per PCP, Surgeon and ID. This plan was discussed with Dr. Bergeron. Thank you for your consult. Please call us for any further questions or concerns. Dictated by ASHLEY Godoy for Gabino Bergeron MD MTDD
[2019-05-09] MEDS: ROCEPHIN 2 GM in NS 50 ML IV SCH (15:31)
[2019-05-09] MEDS: PROTONIX IV SCH (15:31)
--- NOTE | 2019-05-09 17:28 | INFECTIOUS DISEASE PROGRESS NO ---
DATE: 05/09/2019 PRESENT ILLNESS: The patient has an Escherichia coli bacteremia which originated from his acute cholecystitis. He has subsequently had a cholecystectomy. The patient also has a left lower lobe pneumonia and/or atelectasis. MEDICATIONS: This is day 5 of treatment with Rocephin and Zyvox. PHYSICAL EXAMINATION: Vital Signs: Temperature is 97.7 degrees, pulse 72, respirations 15, blood pressure 135/55. General: This is an ill-appearing elderly male. He is alert and coherent. He was in no acute distress. Head/Eyes/Ears/Nose/Throat: He can hear my spoken words and see near objects. He does not have any white patches in his mouth. Neck: No pain with moving. Lungs: Clear to auscultation. Cardiovascular: Heart rate is regular. Abdomen: The patient is not tender to light palpation. In the right upper quadrant, there is an incision with a large dressing over it. Also, in that same area, there is a drain in place. Neurologic: The patient is alert. He talks in a coherent fashion. He can move his extremities. He does not have a tremor. LABORATORY AND RADIOLOGY: The patient's CBC shows a white count of 7420, hemoglobin 11.7, platelet count 217,000. The patient's blood gases show a pH of 7.53, a PO2 of 77, a pCO2 of 32. Creatinine is 0.7, GFR is greater than 60. Liver function studies are normal. CBC shows a white count of 7420, hemoglobin 11.7, and platelet count 217,000. ASSESSMENT AND PLAN: The patient has bacteremia and possible pneumonia. The plan now is to continue with Rocephin for both of the above named infections. COMORBIDITIES: The patient is elderly. While in the hospital he has had a cholecystectomy. He has also suffered a myocardial infarction. He has pulmonary edema and gastroesophageal reflux disease. cc: Quincy Padilla MD
--- NOTE | 2019-05-09 18:00 | GASTROENTEROLOGY CONSULTATION ---
DATE: 05/09/2019 REASON FOR CONSULTATION: Evaluate for possible bile leak. HISTORY OF PRESENT ILLNESS: This is a 79-year-old male who was admitted to the hospital on 05/01/2019. Records since his admission were reviewed. The patient had initially presented to [facility] and was treated there for possible cholecystitis and possible gallstone pancreatitis. He was discharged home on antibiotics. He continued to have pain and presented to [facility]. He had imaging studies consistent with cholelithiasis and cholecystitis. He had surgery on 05/02/2019. He had some complications of bleeding during surgery, and laparoscopic cholecystectomy was converted to open cholecystectomy. He was on the ventilator for a time after his surgery. He is now in the PVC unit. At the time on my evaluation, he was sitting up in a chair, in no acute distress. He has had some moderate amount of bile colored drainage from his IRMA drain. His liver enzymes are normal. Consultation was requested for evaluation of possible ERCP if indicated. The patient did have a HIDA scan this morning. Results reviewed that showed no evidence of bile leak. There was normal uptake within the liver. Normal emptying into the small bowel. Gallbladder has been removed. No extravasation noted in the right quadrant. Patient, as noted, is sitting up in a chair. His is at the bedside. He has tolerated his breakfast. PAST MEDICAL HISTORY: History of prostate cancer, hypertension, hyperlipidemia, GERD, history of essential tremors. PAST SURGICAL HISTORY: Prostatectomy, recent cholecystectomy on 05/02/2019. ALLERGIES: No known drug allergies. HOME MEDICATIONS: 1. Xanax 0.5 mg twice a day. 2. Amoxicillin 875 mg twice a day. 3. Vitamin D 400 units daily. 4. Prinivil 20 mg daily. 5. Metoprolol 25 mg twice a day. 6. Prilosec 40 mg daily. 7. Ditropan 5 mg daily. 8. Simvastatin 20 mg every night. 9. Sucralfate 1 gram before meals and at bedtime. SOCIAL HISTORY: No tobacco or alcohol use. History of tobacco use. REVIEW OF SYSTEMS: Per history of present illness. PHYSICAL EXAMINATION: Vital Signs: Temperature 97.7 degrees, pulse 72, respirations 15, blood pressure 135/55. General: Patient is awake, alert, no acute distress. He is sitting up in a chair. Family is at the bedside. Respiratory: Lungs sound essentially clear. Cardiovascular: Regular rate and rhythm. Abdomen: Soft. He has dressing in the mid abdomen and right side. IRMA drain in place with a moderate amount of bile colored drainage. Mild postoperative tenderness, otherwise soft with positive bowel sounds. Neurologic: Cranial nerves 2-12 grossly intact. He is awake and alert. Extremities: There is some mild lower extremity edema noted. LABORATORY: Hematology: WBC 7.42, hemoglobin 11.7, hematocrit 36.9, MCV 90.2. Chemistry: Sodium 139, potassium 3.5, chloride 104, CO2 of 25, BUN 16, creatinine 0.7, glucose 100, total bilirubin 1.01. AST 31, ALT 41, alkaline phosphatase 83. IMAGING STUDIES: Recent chest x-ray showed small left pleural effusion with basilar atelectasis with no significant change. HIDA scan done today showed no evidence of bile leak. ASSESSMENT AND PLAN: 1. Acute gallstone cholecystitis/pancreatitis. Patient is status post open cholecystectomy on 05/02/2019. 2. Acute respiratory failure has improved. He was on the ventilator for a while. He is currently without distress. 3. [id number] elevation myocardial infarction. Has been followed by Cardiology. 4. Left lower lobe pneumonia, on antibiotics. 5. Escherichia coli bacteremia, on antibiotics. PLAN: Patient is slowly improving from his surgery. Evaluation was done today to check for possible bile leak. HIDA scan did not show evidence of a bile leak. His liver function tests are normal. We will continue to monitor. Would not recommend ERCP at this time. Further plans will be made according to his progress. I have discussed this case with Dr. Gregorio. Dictated by ASHLEY Espino for Bong Gregorio MD cc: ASHLEY Alvarez MD
[2019-05-09] MEDS: MYSOLINE PO SCH (22:13)
[2019-05-10 06:29] LABS: BASO# 0.02 X1000 (0.0-0.2); BASO% 0.3 % (0.0-0.8); EOS# 0.09 X1000 (0.0-0.7); EOS% 1.2 % (0.0-10.0); HEMATOCRIT 34.8 % (42.0-52.0); HEMOGLOBIN 11.1 g/dL (14.0-18.0); IMM GRAN# 0.12 X1000 (0.0-0.04); IMM GRAN% 1.6 % (0.0-0.5); LYMPH# 0.61 X1000 (1.2-3.4); LYMPH% 8.1 % (20.5-51.1); MCH 28.8 PG (27-31); MCHC 31.9 g/dL (33-37); MCV 90.2 FL (81-99); MONO% 6.7 % (1.7-9.3); MPV 10.2 FL (7.4-10.4); NEUT# 6.17 X1000 (1.4-6.5); NEUT% 82.1 % (42.2-75.2); PLT 269 X1000 (130-400); RBC 3.86 XMIL (4.7-6.1); RDW 13.8 % (11.5-14.5); WBC 7.51 X1000 (4.8-10.8)
[2019-05-10 06:41] LABS: AGAP 10; ALB/GLOB RATIO 0.9; ALBUMIN 2.4 g/dL (3.5-5.0); ALKALINE PHOSPHATASE 78 U/L (32-122); BUN 14 mg/dL (8-22); CALCIUM 7.7 mg/dL (8.8-10.2); CHLORIDE 100 mmol/L (98-107); COSMO 270; CREATININE 0.8 mg/dL (0.7-1.2); ESTIMATED GFR > 60; GLUCOSE 122 mg/dL (70-104); GOT 29 U/L (10-34); GPT 42 U/L (10-44); POTASSIUM 3.3 mmol/L (3.5-5.1); SODIUM 134 mmol/L (136-145); TCO2 24 mmol/L (25-35); TOTAL BILIRUBIN 0.91 mg/dL (0.20-1.00); TOTAL PROTEIN 5.1 g/dL (6.3-8.3)
[2019-05-10] MEDS: CAPOTEN PO SCH ×2 (08:55→23:35)
[2019-05-10] MEDS: ASPIRIN PO SCH (08:55)
[2019-05-10] MEDS: LOPRESSOR PO SCH ×2 (08:55→23:16)
[2019-05-10] MEDS: LASIX IV SCH ×2 (08:55→23:17)
[2019-05-10] MEDS: ZYVOX 600 MG/D5W 600 MG/300 ML IVPB IV SCH ×2 (08:55→23:35)
[2019-05-10] MEDS: XANAX PO SCH ×2 (08:55→23:16)
--- NOTE | 2019-05-10 09:49 | PROGRESS NOTE ---
DATE: 05/10/2019 SUBJECTIVE: Patient reports feeling fine. Denies any fever or chills. is at bedside and reports to be feeling good. OBJECTIVE: Vital Signs: Temperature 98.1 degrees, heart rate 93, respiratory 19, blood pressure 125/77, and O2 saturation 96% on room air. General: This is a 79-year-old male lying in bed in no acute distress. Cardiovascular: S1, S2 heard. No murmurs, gallops, or rubs. Regular rate and rhythm. Respiratory: Clear bilaterally to auscultation. No work of breathing or using accessory muscles. Abdomen: Soft. A little bit distended but nontender to palpation. IRMA drain still in place with yellowish drainage coming out. There is a right upper quadrant surgical incision coming out. Extremities: No clubbing, cyanosis, or edema. Peripheral pulses present in both legs. Neurological: Patient alert and oriented x3. Moves all 4 extremities. The patient has minimal essential tremor. LABORATORY DATA REVIEW: Normal AST, ALT and bilirubin. ASSESSMENT: 1. Acute gallstone cholecystitis complicated with a picture of E. coli bacteremia and sepsis, and diffuse encephalopathy. Shock liver. Respiratory failure. Those conditions have resolved. The patient reports feeling fine. There was a concern for possible bile leak, but the HIDA scan did not show any leaking. Gastroenterology has been consulted. They are not planning to do an ERCP. At this point, we will continue with the current management. 2. Acute calculus cholecystitis status post laparoscopic cholecystectomy converted to an open cholecystectomy. Today, is postoperative day #8. IRMA drain is still in place. Dr. Fernando has been following this patient. Will follow his recommendations. 3. Non ST segment elevation myocardial infarction. Stable. No chest pain. Cardiology has been following him. 4. Hypertension. Blood pressure is under control. We will continue with same management. 5. Left lower lobe pneumonia. We will continue with Zyvox and Rocephin. 6. Escherichia coli bacteremia. The patient is recovering from acute cholecystitis. We will continue with current antibiotics p.o. We will complete 14 days of those. We will switch to Levaquin whenever this patient is ready to go. 7. Anemia of acute blood loss. Hemoglobin is stable. We will continue to monitor. 8. Essential tremor. We will continue with the Xanax. 9. Disposition. At this point, once this patient is cleared by General Surgery, he can be discharged to [facility]. cc: Dominic Bates MD MTDD
--- NOTE | 2019-05-10 09:55 | GENERAL SURGERY PROGRESS NOTE ---
DATE: 05/10/2019 SUBJECTIVE: Patient seems to be doing okay. His HIDA scan yesterday did not suggest a bile leak, although he still has some bile tinged fluid come out of his Manpreet-Guido drain. It is not a lot, it is only 150 mL recorded out throughout the day. OBJECTIVE: Vital Signs: Patient is currently afebrile. His vital signs stable. General: No acute distress. Cardiovascular: Regular rate and rhythm. Lungs: Grossly clear. Abdomen: Soft. Appropriately tender. IRMA drain again with some bile tinged fluid. LABORATORY: None this morning. HIDA scan as noted above. ASSESSMENT AND PLAN: A 79-year-old gentleman status post open cholecystectomy, currently postoperative day #8. Postoperative state at this time. Patient seems to be doing okay. He does have some bile tinged fluid coming out of his Manpreet-Guido drain. HIDA scan does not suggest a large leak. He may have a small leak, and it is just not able to be picked up by the HIDA scan, but again no significant leak noted. We will continue with IRMA drain and continue to monitor him. I think he is doing well. Hopefully, we can be looking at getting him to a rehab facility here in the near future. cc: Tye Fernando MD
--- NOTE | 2019-05-10 12:02 | PROVIDER PROGRESS NOTE ---
Progress Note Dr. Leon Progress Note/Pulmonary and or critical care We appreciated progress of care, Complications, change in diagnosis, and instructions to patient under direct supervision of Dr. Leon. Subjective: We note the level of consciousness, bed (chair) position, family presence (if any), level of lethargy, feeling of symptoms, and changes from baseline condition/symptom. The patient is sitting on the bedside chair with essential tremor noted. He just had physical therapy and walked back from the hallway. He is on room air and tolerates well. IRMA in place with some mildly greenish drain. C/o weakness. No fever overnight. and daughter at the bedside. Objective: Vital Signs: We reviewed EMR current values for Pulse rate, Blood pressure, Pulse rate, respiratory rate and Pulse oximetry. Also noted other values and trends if present (e.g. I/O, CVP). Vital Signs 05/09/19 16:00 05/09/19 19:54 05/09/19 20:27 Temperature 98.6 F 97.7 F Pulse Rate 77 79 Respiratory Rate 15 22 Blood Pressure 131/64 142/59 O2 Sat by Pulse Oximetry 93 L 95 95 05/10/19 00:00 05/10/19 04:00 05/10/19 08:00 Temperature 98.6 F 98.1 F 99.1 F Pulse Rate 73 69 93 H Respiratory Rate 23 23 19 Blood Pressure 117/53 139/59 125/77 O2 Sat by Pulse Oximetry 93 L 96 96 05/10/19 10:00 05/10/19 11:27 Temperature 97.8 F Pulse Rate 72 80 Respiratory Rate 16 17 Blood Pressure 130/56 O2 Sat by Pulse Oximetry 96 96 Intake & Output 05/09/19 05/10/19 05/10/19 19:59 07:59 19:59 Intake Total 240 / 240 Output Total 501 / 1431 930 / 1431 420 / 420 Balance -261 / -1191 -930 / -1191 -420 / -420 Intake: Intake, Oral Amount 240 / 240 Output: Output, Urine Void Amount 350 / 1250 900 / 1250 350 / 350 Output, Urine Thompson Amount 1 / Output, IRMA Drain #1 30 / 30 Output, IRMA #1 (Telepun) 150 / 150 70 / 70 Other: Percent of Meal Consumed 75% 25% Number of Continent Voids Not 1 Measured Number of Bowel Movements 1 3 1 Bowel Movement Color and Soft Character Brown Physical Examination: General: On room air. Sitting on the bedside chair with no acute distress noted. HEENT: Trachea midline. Mucus pink and moist. Chest: Even and unlabored. Symmetrical excursion. Diminished breathing sounds b/l with mild inspiratory crackles RLL. CVS: S1 S2. Abdomen: Soft. Dressing on the right side of the RUQ is intact. IRMA drain in place. Extremities: BLE pitting edema 1+ up to the thigh area. Dorsalis pedis diminished b/l. Neuro: Alert/oriented x 3. Speech fluent. Follow commands. Essential tremor noted. Generalized weakness present. Labs and Radiology: Reviewed available labs and radiology values available at time of EMR review. Laboratory Results 05/10/19 05/10/19 06:01 06:01 WBC 7.51 RBC 3.86 L Hgb 11.1 L Hct 34.8 L MCV 90.2 MCH 28.8 MCHC 31.9 L RDW Std Deviation 13.8 Plt Count 269 MPV 10.2 Immature Gran % (Auto) 1.6 H Neut % (Auto) 82.1 H Lymph % (Auto) 8.1 L [place] % (Auto) 6.7 Eos % (Auto) 1.2 Baso % (Auto) 0.3 Immature Gran # (Auto) 0.12 H Neut # (Auto) 6.17 Lymph # (Auto) 0.61 L [place] # (Auto) 0.50 Eos # (Auto) 0.09 Baso # (Auto) 0.02 Sodium 134 L Potassium 3.3 L Chloride 100 Carbon Dioxide 24 L Anion Gap 10 BUN 14 Creatinine 0.8 Estimated GFR/1.73 m2 > 60 BUN/Creatinine Ratio 18 Glucose 122 H Calculated Osmolality 270 Calcium 7.7 L Total Bilirubin 0.91 AST 29 ALT 42 Alkaline Phosphatase 78 Total Protein 5.1 L Albumin 2.4 L Globulin 2.7 Albumin/Globulin Ratio 0.9 Dr. Leon evaluated and additional note below. Evaluation time in minutes: 33 minutes. Assessment: Acute hypoxic respiratory failure secondary to cholecystectomy. Extubated on 05/03/19. LLL pneumonia +/- atelectasis with a small left pleural effusion. Acute cholecystitis. Laparoscopic converted to open cholecystectomy on 05/02/2019. Gram-negative christopher bacteremia. Troponin elevation. Improved. Bile leak. Ruled out by HIDA scan on 05/09/19. Plan: Continue current treatment and supportive care per admitting and other teams on the case. Antibiotics per Dr. Padilla. Bronchodilators PRN. Physical therapy. Encourage incentive spirometer, deep breathing and cough. Appropriate DVT and GI prophylaxis. Transfer to Surgical floor. Input was appreciated from Admitting MD and other teams on the case.
[2019-05-10] MEDS: SODIUM CHLORIDE 0.9% INJ SCH (13:38)
[2019-05-10] MEDS: PROTONIX IV SCH (13:38)
--- NOTE | 2019-05-10 15:37 | INFECTIOUS DISEASE PROGRESS NO ---
DATE: 05/10/2019 PRESENT ILLNESS: The patient has an Escherichia coli bacteremia, and left lower lobe pneumonia and/or atelectasis. MEDICATIONS: This is day 5 of treatment with Rocephin and Zyvox with day 1 being the first day that the patient's repeat blood cultures were sterile. PHYSICAL EXAMINATION: Vital Signs: Temperature 99.1 degrees, pulse 93, respirations 19, and blood pressure is 125/77. General: This is an ill-appearing elderly male. He is alert, however, and he talks coherently. He is in no acute distress. Head/eyes/ears/nose/throat: He can hear my spoken words, and see near objects. He does not have any white coating of his tongue. Neck: No pain with moving. Lungs: Clear to auscultation. Cardiovascular: Heart rate is regular. Abdomen: Soft and non tender to light palpation. The patient has a right upper quadrant incision which has a large dressing on it. Also, there is a drainage tube coming from the right upper quadrant, and that site also has a dressing over it. Neurologic: The patient is alert. He is able to ambulate. He talks in a coherent fashion. He does not have a tremor. LABORATORY AND RADIOLOGY: CBC shows a white count of 7510, hemoglobin 11.1, and platelet count 269,000. Creatinine is 0.8. GFR is greater than 60. Liver function studies are normal. Repeat blood cultures are negative at 48 hours. ASSESSMENT AND PLAN: The patient has bacteremia and possible pneumonia. My plan is to continue Rocephin and Zyvox. For tomorrow, I have ordered a chest x-ray also. COMORBIDITY: Elderly, recent surgery and myocardial infarction. cc: Quincy Padilla MD [facility]
[2019-05-10] MEDS: ROCEPHIN 2 GM in NS 50 ML IV SCH ×2 (16:53→17:11)
--- NOTE | 2019-05-10 20:23 | GASTROENTEROLOGY PROGRESS NOTE ---
DATE: 05/10/2019 SUBJECTIVE: The patient was awake and alert at the time of my evaluation. His was at the bedside. She states he did get up this morning in a chair while receiving his bath and bed change. He has tolerated some of his diet for breakfast. He has Manpreet-Guido drain in place. It was recently emptied per nurse tech report; 70 mL was emptied from the IRMA drain. OBJECTIVE: Vital Signs: Temperature is 97.8 degrees, pulse 80, respirations 17, blood pressure 130/56. General: Patient is awake, alert, in no acute distress. Abdomen: Soft. Dressing is intact. IRMA drain empty at present time; was just emptied with reported 70 mL of fluid removed. LABORATORY: Hematology: WBC 7.51, hemoglobin 11.1, hematocrit 34.8, MCV 90.2. Chemistry: Sodium 134, potassium 3.3, chloride 100, CO2 24, BUN 14, creatinine 0.8, glucose 122, calcium 7.7, total bilirubin 0.91, AST 29, ALT 42, alkaline phosphatase 78. ASSESSMENT AND PLAN: 1. Acute gallstone cholecystitis/pancreatitis. Patient is status post open colectomy on 05/02/2019. 2. Recent respiratory failure. Patient is currently extubated and respiratory status has improved. 3. History of non-ST elevation myocardial infarction. Seen by Cardiology. 4. Pneumonia, on antibiotics. 5. Escherichia coli bacteremia, on antibiotics. 6. HIDA scan did not show evidence of bile leak. His liver function tests are normal. Patient seems to be slowly improving. We will not proceed with endoscopic retrograde cholangiopancreatography at this time, but will continue to follow and further plans will be made according to his progress. I have discussed this case with Dr. Gregorio. Dictated by ASHLEY Espino for Bong Gregorio MD cc: ASHLEY Alvarez MD [facility]
[2019-05-10] MEDS: MYSOLINE PO SCH (23:17)
[2019-05-11] MEDS: MORPHINE IV PRN (00:31)
--- NOTE | 2019-05-11 06:52 | Diag Imaging Result Doc PS360 ---
CHEST-1 VIEW - 05/11/2019 INDICATION: pneumonia COMPARISON: 05/09/2019 FINDINGS: There is a stable trace left pleural effusion. The lungs are clear of infiltrate. Heart size and pulmonary vascularity is normal. IMPRESSION: Trace left pleural effusion. Electronically signed by Rock Wilson 05/11/2019 6:50 AM
[2019-05-11 07:28] LABS: BASO# 0.02 X1000 (0.0-0.2); BASO% 0.3 % (0.0-0.8); EOS% 1.3 % (0.0-10.0); HEMATOCRIT 34.9 % (42.0-52.0); HEMOGLOBIN 11.2 g/dL (14.0-18.0); IMM GRAN# 0.09 X1000 (0.0-0.04); IMM GRAN% 1.2 % (0.0-0.5); LYMPH# 0.79 X1000 (1.2-3.4); LYMPH% 10.2 % (20.5-51.1); MCH 28.9 PG (27-31); MCHC 32.1 g/dL (33-37); MCV 89.9 FL (81-99); MONO# 0.68 X1000 (0.11-0.59); MONO% 8.7 % (1.7-9.3); MPV 10.3 FL (7.4-10.4); NEUT% 78.3 % (42.2-75.2); PLT 286 X1000 (130-400); RBC 3.88 XMIL (4.7-6.1); RDW 13.9 % (11.5-14.5); WBC 7.78 X1000 (4.8-10.8)
[2019-05-11 08:05] LABS: AGAP 10; ALB/GLOB RATIO 0.8; ALBUMIN 2.4 g/dL (3.5-5.0); ALKALINE PHOSPHATASE 82 U/L (32-122); BUN 12 mg/dL (8-22); CALCIUM 7.9 mg/dL (8.8-10.2); CHLORIDE 102 mmol/L (98-107); COSMO 272; CREATININE 0.8 mg/dL (0.7-1.2); ESTIMATED GFR > 60; GLUCOSE 111 mg/dL (70-104); GOT 35 U/L (10-34); GPT 41 U/L (10-44); POTASSIUM 3.8 mmol/L (3.5-5.1); SODIUM 136 mmol/L (136-145); TCO2 24 mmol/L (25-35); TOTAL PROTEIN 5.3 g/dL (6.3-8.3)
[2019-05-11] MEDS: LOPRESSOR PO SCH (08:35)
[2019-05-11] MEDS: XANAX PO SCH (08:35)
[2019-05-11] MEDS: LASIX IV SCH (08:35)
[2019-05-11] MEDS: ASPIRIN PO SCH (08:35)
[2019-05-11] MEDS: CAPOTEN PO SCH (08:36)
--- NOTE | 2019-05-11 10:29 | GENERAL SURGERY PROGRESS NOTE ---
DATE: 05/11/2019 SUBJECTIVE: Patient doing okay. OBJECTIVE: Vital Signs: The patient is currently afebrile. His vital signs are stable. General: No acute distress. Cardiovascular: Regular rate and rhythm. Lungs: Grossly clear. Abdomen: Soft, appropriately tender. Incision is healing well. Still with some bile coming out, but the output seems to have slowed down a little bit. ASSESSMENT AND PLAN: A 79-year-old gentleman status post open cholecystectomy. Postoperative state. At this time, from a surgical point of view, I think he can go to a rehab facility if everything can be arranged. Will keep his Manpreet-Guido drain in place. I will need to see him back in the office in 1 to 2 weeks. cc: Tye Fernando MD
[2019-05-11] MEDS ORDERED: LEVAQUIN PO SCH (11:00)
--- NOTE | 2019-05-11 11:13 | DISCHARGE SUMMARY ---
ADMISSION DATE: 05/01/2019 DISCHARGE DATE: 05/11/2019 PRIMARY CARE PHYSICIAN: Dr. Jake Dubois. CONSULTATIONS: General Surgery, Cardiology, Infectious Disease, and Pulmonology. ADMISSION DIAGNOSES: 1. Cholelithiasis with questionable cholecystitis. 2. Hypertension. 3. Hyperlipidemia. 4. Nausea, vomiting, and abdominal pain secondary to #1. DISCHARGE DIAGNOSES: 1. An acute gallstone cholecystitis complicated with a picture of Escherichia coli bacteremia and sepsis and diffuse encephalopathy with liver shock and respiratory failure, now resolved. 2. An acute calculous cholecystitis status post laparoscopic cholecystectomy converted to an open cholecystectomy. 3. A non ST-segment elevation myocardial infarction. 4. Hypertension. 5. A left lower lobe pneumonia. 6. An coli bacteremia. 7. Anemia of acute blood loss. 8. An essential tremor. SUMMARY OF FINDINGS: This is a 79-year-old male who had been discharged from [facility] around noon on the day of arrival, had been diagnosed with pancreatitis and gallstones, treated for approximately 4 days there. Around 5 p.m. that night, he began having nausea, vomiting, and increased right upper quadrant pain that extended over the epigastric area with cramping, sharp, throbbing pain radiating into his back. Nothing made it better. CT scan ordered here showed gallstones in the gallbladder neck, moderately distended gallbladder and a small amount of pericholecystic fluid. The possibility of an acute cholecystitis could not be excluded. General Surgery was consulted. We did an abdomen and pelvic CT as stated earlier. We did a pulmonary arteriogram also that showed bilateral pleural effusions, pulmonary edema and/or pneumonia. Echocardiogram on 05/02/2019 that showed an ejection fraction of 55%. Cardiology was consulted and was following. He became septic. Infectious Disease was consulted. On 05/02/2019, he had a laparoscopic converted to open cholecystectomy. NG tube was placed and was found to be in good position. He continued his IV antibiotics, was found to have a bacteremia though his blood culture of E coli. He did go into some septic shock after his surgery, placed on the ventilator. On 05/04/2019, the endotracheal tube was removed. Chest x-ray confirmed. He had a IRMA drain from his open gallbladder surgery. GI consulted on 05/09/2019 for a possible bile leak after his open cholecystectomy. He had a HIDA scan that showed there was no bile leakage. If any bile was noted in the IRMA drain, they would plan to do an ERCP, but it appears that did not warrant. He has not had any bile drainage from his IRMA. Chest x-ray today showed trace left pleural effusion, but it is felt that he can safely be discharged to rehab. He will keep the IRMA drain in place and will follow up with surgery in 1 week. DISCHARGE MEDICATIONS: Include aspirin 81 mg p.o. daily, captopril 12.5 mg p.o. b.i.d., primidone 50 mg p.o. at bedtime, Xanax 0.5 mg p.o. b.i.d., vitamin D2 400 units p.o. daily, Lasix 20 mg p.o. daily, metoprolol 25 mg p.o. b.i.d., oxybutynin 5 mg p.o. daily, pantoprazole 40 mg p.o. daily, simvastatin 20 mg p.o. at bedtime, Carafate 1 g p.o. before meals and at bedtime. FOLLOWUP: Again, he will need to follow up with General Surgery in 1 week for possible IRMA drain removal. He will need to follow up with Cardiology in 1 month and call their office to arrange that appointment and follow up with his primary care physician once rehab stay has completed. All appointments will be made at time of discharge from rehab. TIME SPENT: A 35 minute discharge. Dictated by ASHLEY Rodriguez for Dominic Bates MD Addendum: Patient seen and examined by myself. Agree with ASHLEY note. It reflects my assessment and plan. Patient is being discharged from hospital in stable condition to rehab. Will be seen by surgery in a week cc: ASHLEY Rodriguez MD Chad McElroy, MD MTDD
[2019-05-11] MEDS: PROTONIX IV SCH (11:20)
[2019-05-11] MEDS ORDERED: NORCO-5 PO ONE (11:28)
[2019-05-11 11:33] VITALS: BP 124/61
--- NOTE | 2019-05-11 15:37 | INFECTIOUS DISEASE PROGRESS NO ---
DATE: 05/11/2019 The patient is going to a rehab facility today. I am switching his antibiotics from Rocephin and Zyvox to Levaquin 500 mg p.o. daily for 10 days. Some of the side effects of the antibiotic including rash, diarrhea, seizures, and tendon rupture have been explained to the patient who agrees with treatment. I am available to see the patient on a p.r.n. basis. cc: Quincy Padilla MD
== END 2019-05-11 13:13 | disposition swing bed (61) | DRG 853 ==
LOC: ED 21:38 → 4N 05-01 02:27 → SUATTDRO 05-01 02:27 → ICU 05-02 02:25 → 2N 05-08 15:45 → 4N 05-10 14:57
PROVIDERS: ATTEND Internal Medicine